=== PATIENT | male | born 1950 | race Caucasian/White ===

== ENCOUNTER 2016-09-08 16:52 | Inpatient (IN) ==
--- NOTE | 2016-09-08 17:03 | Emergency Department Note ---
Disposition Clinical Impression: Exertional dyspnea, Leg edema, CAD (coronary artery disease), Atrial fibrillation with RVR Disposition: Still a Patient Condition: Fair Referrals: NO,PCP [Non-Partnered Physician] - Time of Disposition: 18:39 General Adult HPI - General Stated complaint: irregular heart rate Time Seen by Provider: 09/08/16 16:58 Source: patient, EMS Mode of arrival: EMS Limitations: no limitations Nursing Notes Reviewed: Yes Vital Signs Reviewed: Yes - History of Present Illness HPI Narrative: This is a 66-year-old male who presents with bilateral leg swelling and exertional dyspnea. Patient had open heart surgery in mid July. Patient had his CABG surgery here with Dr. Madera. Patient was being seen in a follow- up appointment today and he was in an irregular fast rhythm with increased leg swelling despite increased doses of Lasix so they wanted him evaluated in the ED with bilateral venous duplex as well. Patient states no active chest pain at this time. Patient states he does have some skin breakdown around his buttocks from having to sit so much and states his legs are very painful from all the swelling. Patient states he just increased his Lasix to 60 mg twice a day. Patient has not had any fevers. - Related Data Home Medications Medication Instructions Recorded Confirmed Albuterol Sulfate [Albuterol 2 puff IH Q4H PRN 05/20/16 08/23/16 Inhaler] ClonazePAM [Klonopin] 1 mg PO BID 05/20/16 08/23/16 Escitalopram [Lexapro] 20 mg PO HS 05/20/16 08/23/16 Gabapentin [Neurontin] 100 mg PO TID 05/20/16 08/23/16 Ipratropium/Albuterol Neb [Duoneb] 3 ml IH QID PRN 05/20/16 08/23/16 Metformin HCl [Metformin HCl ER] 500 mg PO QPM 05/20/16 08/23/16 Quetiapine Fumarate [Seroquel] 50 - 100 mg PO HS 05/20/16 08/23/16 Trazodone HCl 150 - 300 mg PO HS PRN 05/20/16 08/23/16 Previous Rx's Medication Instructions Recorded Aspirin 81 mg PO DAILY #30 tab.chew 05/22/16 Atorvastatin [Lipitor] 80 mg PO HS #30 tablet 05/22/16 Clopidogrel [Plavix] 75 mg PO DAILY #30 tablet 05/22/16 Nitroglycerin 0.4 mg SL Q5MIN PRN #25 tab.subl 05/22/16 Amiodarone [Cordarone] 200 mg PO DAILY #30 tablet 08/20/16 Docusate [Colace] 100 mg PO BID #30 capsule 08/20/16 Furosemide [Lasix] 40 mg PO DAILY #30 tablet 08/20/16 Metoprolol [Lopressor] 50 mg PO BID #60 tablet 08/20/16 OxyCODONE/APAP 5/325 [Percocet 1 each PO Q4HR PRN #30 tablet 08/20/16 5/325 MG] Allergies Allergy/AdvReac Type Severity Reaction Status Date / Time No Known Allergies Allergy Verified 08/12/16 08:12 All systems ED: reviewed and negative except as stated. Constitutional: Denies: fever, chills, weakness, weight change Eyes: Denies: eye pain, eye discharge, vision change ENT ED: Denies: ear pain, throat pain, dental pain, hearing loss, epistaxis, congestion, dysphagia Cardiovascular: Reports: dyspnea on exertion, edema. Denies: chest pain, palpitations, syncope Respiratory: Denies: cough, dyspnea, wheezes, hemoptysis, stridor Gastrointestinal: Denies: abdominal pain, nausea, vomiting, diarrhea, constipation, hematemesis, melena, hematochezia Genitourinary: Denies: urgency, dysuria, frequency, hematuria Musculoskeletal: Denies: back pain, neck pain, arthralgia, myalgia Integumentary: Denies: rash, abrasion, lesions Neurological: Denies: headache, weakness, numbness, paresthesias, confusion, abnormal gait, vertigo Psychiatric: Denies: anxiety, depression, suicidal thoughts, homicidal thoughts , auditory hallucinations, visual hallucinations Endocrine: Reports: fatigue Hematological/Lymphatic: Denies: easy bleeding, easy bruising Allergic/Immunologic: Denies: facial swelling, urticaria Past Medical History - Past Medical History Attestation: Yes The following information was validated with the patient. Source: patient Medical history: Reports: asthma, COPD, coronary artery disease, DVT, diabetes, hyperlipidemia, hypertension, peripheral artery disease, venous stasis, other Surgical history: Reports: non-contributory, other Psychiatric history: Reports: bipolar, PTSD - Social History Smoking Status: Current every day smoker Smokeless Tobacco Status: No Alcohol use: Reports: none, rarely Drug use: Reports: none Physical Exam - General Limitations: no limitations General appearance: alert, in no apparent distress, obese - Head Head exam: atraumatic, normocephalic, normal inspection - Eye Eye exam: Present: normal appearance, PERRL, EOMI - ENT ENT exam: normal exam, normal oropharynx, mucous membranes moist - Expanded ENT Exam External ear exam: Present: normal external inspection Mouth exam: Present: normal external inspection Teeth exam: Present: normal inspection Throat exam: Present: normal inspection - Neck Neck exam: Present: normal inspection, full ROM, trachea midline - Chest Chest inspection: Present: symmetric chest wall rise, other (scar from recent bypass) - Respiratory Respiratory exam: Present: normal lung sounds bilaterally - Cardiovascular Cardiovascular exam: Present: tachycardia, irregular rhythm, normal heart sounds - Abdominal Exam Abdominal exam: Present: soft, Non-Tender. Absent: tenderness, distention, guarding, rebound, rigidity - Extremities Exam Extremities exam: Present: normal inspection, full ROM, pedal edema. Absent: tenderness - Expanded Upper Extremity Exam Shoulder exam: Present: normal inspection, full ROM Arm exam: Present: normal inspection, full ROM Elbow exam: Present: normal inspection, full ROM Forearm/Wrist exam: Present: normal inspection, full ROM Hand exam: Present: normal inspection, full ROM Vascular exam: Normal: capillary refill, radial pulse - Expanded Lower Extremity Exam Hip/Pelvis exam: Present: normal inspection, full ROM Upper leg exam: Present: normal inspection, full ROM Knee exam: Present: normal inspection, full ROM Lower leg exam: Present: full ROM, swelling, other (venous discoloration) Ankle exam: Present: full ROM, swelling Foot/toe exam: Present: full ROM, swelling Neurovascular/Tendon exam: Absent: motor deficit, sensory deficit, tendon deficit - Back Exam Back exam: Present: normal inspection, full ROM. Absent: tenderness - Neurological Exam Neurological exam: Present: alert, oriented X3 - Expanded Neurological Exam Patient oriented to: Present: person, place, time Coma Scale Eye Opening: Spontaneous Coma Scale Motor Response: Obeys Commands Coma Scale Verbal Response: Oriented Coma Scale Total: 15 - Psychiatric Psychiatric exam: Present: normal affect, normal mood - Skin Skin exam: Present: warm, dry, intact, normal color Course Vital Signs Temperature 98.9 F 09/08/16 17:03 Pulse Rate 113 09/08/16 17:03 Respiratory Rate 18 09/08/16 17:03 Blood Pressure 99/80 09/08/16 17:03 O2 Sat by Pulse Oximetry 91 L 09/08/16 17:03 Temperature 98.9 F 09/08/16 17:03 Pulse Rate 115 09/08/16 18:13 Respiratory Rate 18 09/08/16 18:13 Blood Pressure 121/77 09/08/16 18:13 O2 Sat by Pulse Oximetry 95 09/08/16 18:13 Oxygen Delivery Oxygen Delivery Nasal Cannula Medical Decision Making - Medical Records Medical records reviewed: Yes I reviewed the patient's medical records. - Lab Data Lab results reviewed: Yes I reviewed the patient's lab results. Result diagrams: 09/08/16 17:35 09/08/16 17:35 Lab Results 09/08/16 09/08/16 09/08/16 Range/Units 17:35 17:35 17:35 WBC 7.8 (4.3-11.1) K/mcL RBC 4.14 L (4.19-5.50) M/mcL Hgb 11.2 L (12.9-16.9) g/dL Hct 36.2 L (37.5-50.1) % MCV 87.4 (83.0-100.0) fL MCH 27.1 L (28.0-33.3) pg MCHC 30.9 L (31.6-35.5) g/dL RDW 15.2 H (11.5-14.5) % Plt Count 290 (140-400) K/mcL MPV 8.5 L (9.4-12.4) fL Immature Gran % 0.8 (0-4) % Seg Neutrophils % 62.2 % Lymphocytes % 19.9 % Monocytes % 9.7 % Eosinophils % 6.9 % Basophils % 0.5 % Neutrophils # 4.9 (1.6-8.9) K/mcL Lymphocytes # 1.6 (0.6-4.6) K/mcL Monocytes # 0.8 (0.0-1.3) K/mcL Eosinophils # 0.5 (0.0-0.6) K/mcL Basophils # 0.0 (0.0-0.2) K/mcL Platelet Estimate Normal (Normal) Immature Plt Fraction 1.2 (1.1-6.1) % PT 14.4 H (9.4-12.1) Seconds INR 1.3 APTT 16.6 L (26.0-36.0) Seconds D-Dimer 1605 H (0-500) ng/mLFEU Sodium 137 (136-145) mEq/L Potassium 4.0 (3.5-4.5) mEq/L Chloride 102 (98-109) mEq/L Carbon Dioxide 26 (19-29) mEq/L BUN 14 (8-26) mg/dL Creatinine 0.95 (0.72-1.25) mg/dL Est GFR ( Amer) > 60 (> 60) Est GFR (Non-Af Amer) > 60 (> 60) BUN/Creatinine Ratio 15 (6-26) Glucose 90 (70-99) mg/dL Calculated Osmolality 284 (280-300) Calcium 9.1 (8.6-10.8) mg/dL Total Bilirubin (0.2-1.2) mg/dL Direct Bilirubin (0.0-0.5) mg/dL Indirect Bilirubin (0.0-1.2) mg/dL AST (5-34) Units/L ALT (0-55) Units/L Alkaline Phosphatase (38-126) Units/L Troponin I (0-0.03) ng/mL B-Natriuretic Peptide (0-100) pg/mL Serum Total Protein (6.0-8.3) g/dL Albumin (3.5-5.0) g/dL Globulin (2.4-3.5) g/dL Albumin/Globulin Ratio (1.1-2.2) 09/08/16 09/08/16 09/08/16 Range/Units 17:35 17:35 17:35 WBC (4.3-11.1) K/mcL RBC (4.19-5.50) M/mcL Hgb (12.9-16.9) g/dL Hct (37.5-50.1) % MCV (83.0-100.0) fL MCH (28.0-33.3) pg MCHC (31.6-35.5) g/dL RDW (11.5-14.5) % Plt Count (140-400) K/mcL MPV (9.4-12.4) fL Immature Gran % (0-4) % Seg Neutrophils % % Lymphocytes % % Monocytes % % Eosinophils % % Basophils % % Neutrophils # (1.6-8.9) K/mcL Lymphocytes # (0.6-4.6) K/mcL Monocytes # (0.0-1.3) K/mcL Eosinophils # (0.0-0.6) K/mcL Basophils # (0.0-0.2) K/mcL Platelet Estimate (Normal) Immature Plt Fraction (1.1-6.1) % PT (9.4-12.1) Seconds INR APTT (26.0-36.0) Seconds D-Dimer (0-500) ng/mLFEU Sodium (136-145) mEq/L Potassium (3.5-4.5) mEq/L Chloride (98-109) mEq/L Carbon Dioxide (19-29) mEq/L BUN (8-26) mg/dL Creatinine (0.72-1.25) mg/dL Est GFR ( Amer) (> 60) Est GFR (Non-Af Amer) (> 60) BUN/Creatinine Ratio (6-26) Glucose (70-99) mg/dL Calculated Osmolality (280-300) Calcium (8.6-10.8) mg/dL Total Bilirubin 0.6 (0.2-1.2) mg/dL Direct Bilirubin 0.3 (0.0-0.5) mg/dL Indirect Bilirubin 0.3 (0.0-1.2) mg/dL AST 18 (5-34) Units/L ALT 14 (0-55) Units/L Alkaline Phosphatase 141 H (38-126) Units/L Troponin I 0.02 (0-0.03) ng/mL B-Natriuretic Peptide 335 H (0-100) pg/mL Serum Total Protein 6.4 (6.0-8.3) g/dL Albumin 2.8 L (3.5-5.0) g/dL Globulin 3.6 H (2.4-3.5) g/dL Albumin/Globulin Ratio 0.8 L (1.1-2.2) - Radiology Data Radiology results reviewed: Yes I reviewed the patient's radiology results. - EKG Data EKG #1 EKG attestation: Yes I reviewed and interpreted this EKG. Rate: tachycardia (113) Rhythm: A.Fib Silver Plume/QRS: normal Interpretation: nonspecific ST-T wave changes S.B.A.R. - S.B.A.R. Transition of Care: I will sign pt out to Dr. Avelar to await DVT studies and CTA chest and then likely admission of pt. 18:50.
[2016-09-08 18:00] LABS: INR 1.3; Prothrombin Time 14.4 Seconds (9.4-12.1)
[2016-09-08 18:08] LABS: Activated Partial Thrombo Time 16.6 Seconds (26.0-36.0); BUN/Creatinine Ratio 15 (6-26); Blood Urea Nitrogen 14 mg/dL (8-26); Calcium 9.1 mg/dL (8.6-10.8); Carbon Dioxide 26 mEq/L (19-29); Chloride 102 mEq/L (98-109); Glucose 90 mg/dL (70-99); Osmolality,Calculated 284 (280-300); Sodium 137 mEq/L (136-145); eGFR For African Americans > 60 (> 60); eGFR For Non-African Americans > 60 (> 60)
[2016-09-08 18:13] LABS: Albumin 2.8 g/dL (3.5-5.0); Albumin/Globulin Ratio 0.8 (1.1-2.2); Bilirubin,Direct 0.3 mg/dL (0.0-0.5); Bilirubin,Indirect 0.3 mg/dL (0.0-1.2); Bilirubin,Total 0.6 mg/dL (0.2-1.2); Globulin 3.6 g/dL (2.4-3.5); Total Protein 6.4 g/dL (6.0-8.3)
[2016-09-08 18:16] LABS: Basophils % 0.5 %; Eosinophils # 0.5 K/mcL (0.0-0.6); Eosinophils % 6.9 %; Hematocrit 36.2 % (37.5-50.1); Hemoglobin 11.2 g/dL (12.9-16.9); Immature Granulocytes % 0.8 % (0-4); Immature Platelets 1.2 % (1.1-6.1); Lymphocytes # 1.6 K/mcL (0.6-4.6); Lymphocytes % 19.9 %; Mean Corpuscular HGB Conc 30.9 g/dL (31.6-35.5); Mean Corpuscular Hemoglobin 27.1 pg (28.0-33.3); Mean Corpuscular Volume 87.4 fL (83.0-100.0); Mean Platelet Volume 8.5 fL (9.4-12.4); Monocytes # 0.8 K/mcL (0.0-1.3); Monocytes % 9.7 %; Platelet Count 290 K/mcL (140-400); Red Blood Count 4.14 M/mcL (4.19-5.50); Red Cell Distribution Width 15.2 % (11.5-14.5); Segmented Neutrophils % 62.2 %
[2016-09-08 18:35] LABS: Neutrophils # 4.9 K/mcL (1.6-8.9)
[2016-09-08 18:36] LABS: Platelet Estimate Normal (Normal)
[2016-09-08] MEDS ORDERED: Furosemide 40 MG/4 ML VIAL IVP ONE (23:48)
[2016-09-08] MEDS ORDERED: Azithromycin 500 MG in D5% in Water 250 ML IVPB ONE (23:48)
[2016-09-09 01:11] LABS: Bilirubin,Urine Negative (Negative); Blood,Urine Negative (Negative); Clarity,Urine Clear (Clear); Color,Urine Yellow (Yellow); Glucose,Urine (UA) Normal (Normal); Ketones,Urine Negative (Negative); Leukocyte Esterase,Urine Negative (Negative); Nitrite,Urine Negative (Negative); Protein,Urine Negative (Neg-Trace); Specific Gravity,Urine 1.028 (1.010-1.025); Urobilinogen,Urine Normal (Normal)
[2016-09-09] MEDS ORDERED: Naloxone 0.4 MG/ML INJ IVP PRN (01:14)
[2016-09-09] MEDS ORDERED: *HR* OxyCODONE/APAP 5/325 TABLET PO PRN (01:16)
[2016-09-09] MEDS ORDERED: Nitroglycerin 0.4 MG TAB.SUBL SL PRN (01:16)
[2016-09-09] MEDS ORDERED: Eucerin Cream 57 GM TUBE TP PRN (01:20)
[2016-09-09] MEDS ORDERED: D5% in Water 1,000 ML IV PRN (01:21)
[2016-09-09] MEDS ORDERED: *HR* Dextrose 50 % in Water (Syg) 50 ML SYRINGE IVP PRN (01:21)
[2016-09-09] MEDS ORDERED: Dextrose Gel 15 GM PO PRN ×2 (01:21)
[2016-09-09] MEDS ORDERED: Albuterol 2.5 MG/3 ML NEBULIZER IH PRN (01:22)
--- NOTE | 2016-09-09 01:28 | Internal Med History&Physical ---
Date of Encounter: 09/09/16 Time of Encounter: 00:30 Assessment and Plan (1) Atrial flutter with rapid ventricular response Current visit: Yes Status: Acute Rate has been steady at 115 since arrival to ED. Troponins negative at 0.02. Will give metoprolol 100mg BID starting dose now. Continue amiodarone. Continue Plavix. Continue aspirin. (2) Pneumonia Current visit: Yes Status: Acute With hypoxia and large left pleural effusion that is unchanged. Blood cultures were drawn in the ED. Patient was started on ceftriaxone and azithromycin in the ED. The patient is afebrile and does not have an elevated white count, but with elevated CRP of 27, CT findings, and lung findings on exam will continue with antibiotic therapy. Ceftriaxone and Azithromycin. CTA: No pulmonary embolism. Large left pleural effusion and compressive atelectasis of left lower lung. Scattered opacities in right lung may reflect mild pneumonia or edema. Qualifiers: Pneumonia type: due to unspecified organism Laterality: right Lung location: unspecified part of lung Qualified Code(s): J18.9 - Pneumonia, unspecified organism (3) COPD (chronic obstructive pulmonary disease) Current visit: No Status: Chronic In acute exacerbation secondary to pneumonia and CHF. Duo Neb QIDR Albuterol Q4 PRN Incentive spirometry Antibiotics being given for pneumonia. Qualifiers: COPD type: unspecified COPD Qualified Code(s): J44.9 - Chronic obstructive pulmonary disease, unspecified (4) CHF (congestive heart failure) Current visit: Yes Status: Acute Most recent echocardiogram in 05/16 with EF of 55% and mild diastolic left ventricular dysfunction. Patient reports 20lbs weight gain in past month and worsening lower extremity edema bilaterally. BNP 335. 60mg IV lasix given in ED. Strict I/Os Daily weights. 80mg Lasix BID PO Qualifiers: Congestive heart failure type: diastolic Congestive heart failure chronicity: chronic Qualified Code(s): I50.32 - Chronic diastolic (congestive ) heart failure (5) DVT prophylaxis Current visit: Yes Status: Acute Patient is on Plavix and aspirin. LEO stockings ordered. (6) Diabetes mellitus Current visit: No Status: Chronic Metformin with low dose sliding scale insulin. Qualifiers: Diabetes mellitus type: type 2 Diabetes mellitus complication status: with unspecified complications Diabetes mellitus exterminator helper termite insulin use: without exterminator helper termite use Qualified Code(s): E11.8 - Type 2 diabetes mellitus with unspecified complications (7) Stasis dermatitis Current visit: Yes Status: Acute LEO stockings with eucerin cream PRN Qualifiers: Laterality: bilateral Qualified Code(s): I83.11 - Varicose veins of right lower extremity with inflammation; I83.12 - Varicose veins of left lower extremity with inflammation Internal Medicine - H&P: HPI Chief complaint: rapid heart rate Admitted From: Emergency Dept Plans for Post Hospital Care: Transfer Group Home Facility History of present illness: Mr. Fierro is a 66 year old male with PMH of COPD, CAD, DVT, DM, HLD, HTN, PAD, venous stasis, atrial fibrillation and flutter, and previous OK who presented to the emergency department for rapid heart rate. 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 His CABG procedure was by Dr. Madera in mid July, and he had 2 stents placed in May prior to this. Imagining demonstrated no change in his left sided pleural effusion, but he had some scattered opacities in the right lung that may be consistent with pneumonia. He states that he does have a cough that is productive of clear sputum and has been having fevers within the last week. He complains of worsening swelling in both his legs and a 20lbs weight gain over the last month. He denies chest pain at this time, but states he is feeling short of breath. He was not oxygen dependent before his CABG, but has been on 2L oxygen since being discharged to a nursing home facility for rehabilitation. Additionally the patient notes soreness of his buttocks and notes some skin breakdown in the area due to sitting so much since his discharge from the hospital, and he states this has been quite sore today. Past Med Surg Social Fam HX - Past Medical History Medical history: COPD, coronary artery disease, DVT, diabetes, hyperlipidemia, hypertension, peripheral artery disease, venous stasis, other Psychiatric history: bipolar, PTSD - Past Surgical History Surgical History: coronary bypass (CABG), other - Social History Smoking Status: Current every day smoker (States he stopped since his CABG mid july, no plans to pick it back up) Smokeless Tobacco Status: No Alcohol use: none, rarely Drug use: none - Family History Father Adopted: No Family Member Ethnicity: Non- Living Status: Unknown Hx Family Cardiac Disorders: Yes (CVA) Mother Living Status: Age at : 88 Hx Family Endocrine Disorder: Yes (Diabetes) Internal Medicine - H&P: Meds Albuterol Sulfate [Albuterol Inhaler] 2 puff IH Q4H PRN 05/20/16 [History] ClonazePAM [Klonopin] 1 mg PO BID 05/20/16 [History] Escitalopram [Lexapro] 20 mg PO HS 05/20/16 [History] Gabapentin [Neurontin] 100 mg PO TID 05/20/16 [History] Ipratropium/Albuterol Neb [Duoneb] 3 ml IH QID PRN 05/20/16 [History] Metformin HCl [Metformin HCl ER] 500 mg PO QPM 05/20/16 [History] Quetiapine Fumarate [Seroquel] 50 - 100 mg PO HS 05/20/16 [History] Trazodone HCl 150 - 300 mg PO HS PRN 05/20/16 [History] Aspirin 81 mg PO DAILY #30 tab.chew 05/22/16 [Rx] Atorvastatin [Lipitor] 80 mg PO HS #30 tablet 05/22/16 [Rx] Clopidogrel [Plavix] 75 mg PO DAILY #30 tablet 05/22/16 [Rx] Nitroglycerin 0.4 mg SL Q5MIN PRN #25 tab.subl 05/22/16 [Rx] Amiodarone [Cordarone] 200 mg PO DAILY #30 tablet 08/20/16 [Rx] Docusate [Colace] 100 mg PO BID #30 capsule 08/20/16 [Rx] Furosemide [Lasix] 40 mg PO DAILY #30 tablet 08/20/16 [Rx] Metoprolol [Lopressor] 50 mg PO BID #60 tablet 08/20/16 [Rx] OxyCODONE/APAP 5/325 [Percocet 5/325 MG] 1 each PO Q4HR PRN #30 tablet 08/20/16 [Rx] Allergies No Known Allergies Allergy (Verified 08/12/16 08:12) All Systems PM: A 10-system review of systems was performed and is negative for pertinent findings except as documented above in the HPI. - Constitutional Constitutional: fever(s), weight gain (20lbs in one month), no chills, no night sweats - EENT Eyes: no change in vision, no discharge, no pain, no photophobia Ears: no ear discharge, no ear pain, no tinnitus Nose, mouth and throat: no dysphagia, no nasal discharge, no neck pain, no sore throat - Cardiovascular Cardiovascular ROS IM: edema (bilateral), no chest pain, no diaphoresis, no lightheadedness, no palpitations, no syncope - Respiratory Respiratory: dyspnea, no cough, no wheezing, no excessive phlegm production - Gastrointestinal Gastrointestinal: no abdominal pain, no diarrhea, no hematemesis, no hematochezia, no melena, no nausea, no vomiting - Musculoskeletal Musculoskeletal ROS IM: no numbness, no tingling - Integumentary Integumentary IM: sores (buttocks), no rash, no unusual bruising - Neurological Neurological ROS: no confusion, no convulsions, no focal weakness, no numbness, no tingling, no tremor(s) - Hematologic/Lymphatic Hematologic/Lymphatic: no easy bruising - Constitutional Vitals: Temp Pulse Resp BP Pulse Ox 98.9 F 115 18 121/77 95 09/08/16 17:03 09/08/16 18:13 09/08/16 18:13 09/08/16 18:13 09/08/16 18:13 General appearance: Present: A&O X 3, pleasant, obese - Head Head exam: Present: atraumatic, normocephalic - Eye Eye exam: Present: EOMI, PERRL, conjuntiva pink, sclera anicteric Pupils: Present: PERRL - Neck Neck exam general surgery: Present: supple, trachea midline. Absent: lymphadenopathy - Respiratory Respiratory exam: Present: rhonchi, wheezes. Absent: accessory muscle use, rales - Cardiovascular Cardiovascular exam: Present: +S1, +S2, tachycardia. Absent: diastolic murmur, gallop, rubs, systolic murmur - GI/Abdominal GI/Abdominal exam: Present: normal bowel sounds, soft, no peritoneal signs. Absent: distended, tenderness - Extremities Exam Extremities exam: Present: pedal edema (+2), warm, radial pulses palpable and symetrical. Absent: calf tenderness, cyanotic - Neurological Exam Neurological exam: Present: CN II-XII intact, oriented X3, no focal deficits. Absent: pronater drift, facial droop, speech deficit - Skin Skin exam: Present: dry, intact, rash (Stasis dermatitis on lower extremities) Internal Med - H&P Results - Labs CBC & Chem 7: 09/08/16 17:35 09/08/16 17:35 Labs: Urine 09/09/16 Range/Units 01:02 Urine Color Yellow (Yellow) Urine Clarity Clear (Clear) Urine pH 7.0 (5.0-8.0) pH Units Ur Specific [place] 1.028 H (1.010-1.025) Urine Protein Negative (Neg-Trace) mg/dL Urine Glucose (UA) Normal (Normal) mg/dL - Attending Attestation I examined this patient and my medical decision-making was reviewed with the ZIPPER LINING FOLDER/PA/Advanced Practice Nurse/Resident Physician. I agree with the documented findings, disposition and treatment plan as described except to the extent set forth below.
[2016-09-09] MEDS: Azithromycin 500 MG in D5% in Water 250 ML IVPB SCH (02:50)
[2016-09-09] MEDS: Ipratropium/Albuterol Neb 3 ML IH SCH ×4 (04:35→22:51)
--- NOTE | 2016-09-09 08:19 | Event Note ---
<Eloy Garcia - Last Filed: 09/09/16 15:01> Date of Encounter: 09/09/16 Time of Encounter: 08:15 Patient is pleasant and states that he is feeling well today and mildly short of breath while at rest. He has no complaints of pain and his coughing has been improved. He is in sinus tach with HR at 115 BPM, regular rhythm. He became short of breath when asked to sit up so that his back could be auscultated. Patient had mild wheezing and rhonchi to auscultation in lungs on the right, but has decreased breath sounds on the right. HE states that he is concerned about the venous stasis dermatitis in his legs. I spoke to patient about the large left pleural effusion he has and discussed the possibility of thoracentesis, which the patient responded he would think about it. AFib - cardiology consulted, possible JENI/CV tomorrow if he remains in AFib RVR Diastolic CHF - Will continue diuresis with IV Lasix Treating pneumonia with IV antibiotics Patient is agreeable to having thoracentesis for his left pleural effusion <Garrett Doshi - Last Filed: 09/09/16 16:42> Date of Encounter: 09/09/16 I examined this patient and my medical decision-making was reviewed with the SPOT CHECKER/PA/Advanced Practice Nurse/Resident Physician. I agree with the documented findings, disposition and treatment plan as described except to the extent set forth below.
--- NOTE | 2016-09-09 08:21 | Emergency Department Note ---
START Narrative - START START: Patient received in signout from Dr. Keith pending laboratory evaluation and CTA. After evaluation of results the patient was reevaluated who continued to become hypoxic and obviously dyspneic with conversation, satting below 90% with conversation. Patient does not have evidence of PE on CT. He does have opacity in his lungs which could represent pneumonia. Patient is afebrile and does not have an elevation of his white blood cell count however I will treat with antibiotics for possible early infection. Patient will be admitted to the hospital for further care and evaluation of dyspnea.
[2016-09-09] MEDS: Insulin LISPRO 300 UNITS/3 ML VIAL SQ SCH ×4 (08:27→21:09)
[2016-09-09] MEDS ORDERED: Furosemide 40 MG TABLET PO SCH (09:00)
[2016-09-09] MEDS: *HR* Amiodarone 200 MG TABLET PO SCH (10:11)
[2016-09-09] MEDS: Aspirin 81 MG TAB.CHEW PO SCH (10:11)
[2016-09-09] MEDS: clonazePAM 1 MG TABLET PO SCH ×2 (10:11→21:07)
[2016-09-09] MEDS: Gabapentin 100 MG CAPSULE PO SCH ×3 (10:11→21:07)
--- NOTE | 2016-09-09 10:48 | Cardiology Consult Note ---
Date of Encounter: 09/09/16 Time of Encounter: 10:36 Assessment and Plan (1) Pleural effusion, left Current Visit: Yes Status: Acute Large left pleural effusion with compressive atelectasis. Likely post-operative pleural effusion. Agree with thoracentesis. (2) Atrial fibrillation with RVR Current Visit: Yes Status: Acute Initial EKG in cardiology office showed 2:1 atrial flutter, HR 114. Telemetry review shows atrial fibrillation. Avg HR 110. Recurrent afib. Pt did have a short episode of post-operative afib and was placed on amiodarone. Agree with increasing lopressor. May require addition of cardizem. care home anticoagulation discussed including coumadin or a NOAC. CHADS VASc= 5 for CHF, HTN, age, DM, and CAD. Indications, benefits, use , and adverse effects of anticoagulants reviewed. He prefers coumadin d/t being on it in the past for DVT. Ok to d/c plavix (BMS 05/2016), continue aspirin. Will start after TTE and possible thoracentesis. Lovenox therapeutic dosing for now. PFT baseline ordered in outpt setting for amiodarone monitoring. (3) Atrial flutter with rapid ventricular response Current Visit: Yes Status: Acute See plan above. (4) CAD (coronary artery disease) Current Visit: Yes Status: Chronic S/p STEMI 05/2016, BMS x 2 to RCA 05/2016, 4V CABG 08/12/16. Continue aspirin, statin, and bb. Denies chest pain. Qualifiers: Coronary Disease-Associated Artery/Lesion type: [place] artery [place] vs. transplanted heart: [place] heart Associated angina: without angina Qualified Code(s): I25.10 - Atherosclerotic heart disease of [place] coronary artery without angina pectoris (5) CHF (congestive heart failure) Current Visit: Yes Status: Acute Most recent echocardiogram in 05/16 with EF of 55% and mild diastolic left ventricular dysfunction. Likely secondary to diastolic dysfunction with atrial fib/flutter with RVR. C/O 20lbs weight gain in past month,worsening lower extremity edema bilaterally , and orthopnea. BNP 335. Start IV lasix scheduled. Responded well to IV lasix in ER. Negative 1900ml. Continue diuresis with goal of -1500ml Q 24 hours. Strict I/Os Daily weights. Low sodium diet. Agree with thoracentesis. BLE doppler pending to r/o DVT. Qualifiers: Congestive heart failure type: diastolic Congestive heart failure chronicity: acute on chronic Qualified Code(s): I50.33 - Acute on chronic diastolic (congestive) heart failure (6) Stasis dermatitis Current Visit: Yes Status: Acute Reports history of stasis dermatitis but not as bad. He was not on treatment at [facility]. I discussed wound care referral in out-pt setting yesterday and patient states he is interested today. I will consult wound care for him to be seen while he is here. Hospitalist also following and ordered cream for him. Qualifiers: Laterality: bilateral Qualified Code(s): I83.11 - Varicose veins of right lower extremity with inflammation; I83.12 - Varicose veins of left lower extremity with inflammation Discussion w patient/family: The assessment and plan as outlined above was discussed with the patient and/or family members who expressed understanding and agreement. All questions were answered. Thank you for involving us in the care of your patient. Please call with any questions. History of Present Illness Consult date: 09/09/16 Requesting physician: Roque Adkins Consult reason: CHF Chief complaint: SOB, BLE edema, orthopnea History of present illness: Mr. Fierro is a 66 year old male who presents with increasing SOB, BLE edema, orthopnea, and redness and pain in left leg. He is s/p STEMI 05/19/16 and he underwent BMS x 2 to the RCA, diagnosed with severe three-vessel coronary artery disease and recommended to undergo CABG. He required plavix for 4-6 weeks prior to CABG. He underwent 4V CABG (free GOSS-LAD, sequential SVG-D1 and OM1, SVG-PDA) on 08/12/[address] [place]. Since his CABG he had a recent ER visit 08/23/16 for right lower extremity incision bleeding. Bleeding is now stopped. Oral lasix increased for increasing BLE edema and SOB. Diagnosed with RUL pneumonia 08/24/16 and started on levaquin in the out patient setting. He currently is at a rehab facility and requires assistance with ambulation. C/o sores on coccyx area and new discoloration of BLE. Reports history of stasis dermatitis. Cardiology consulted for CHF and afib/aflutter. He was seen in the cardiology clinic by me yesterday with the above complaints. EKG showed 2:1 atrial flutter with mild RVR. D/t multiple complaints and worsening SOB despite treatment he was sent to the ED. He was treated with IV lasix and responded well. He reports improvement in breathing. CT scan shows a large left effusion with compressive atelectasis. He is considering thoracentesis offered by primary team. Other past medical history includes post-op atrial fibrillation on amiodarone, diabetes type 2, hypertension, hypercholesterolemia, and COPD. Past Med Surg Social Fam HX - Past Medical History Medical history: COPD, coronary artery disease, DVT, diabetes, hyperlipidemia, hypertension, peripheral artery disease, venous stasis, other Psychiatric history: bipolar, PTSD - Past Surgical History Surgical History: coronary bypass (CABG), other - Social History Smoking Status: Current every day smoker Smokeless Tobacco Status: No Alcohol use: none, rarely Drug use: none - Family History Mother Living Status: Age at : 88 Hx Family Cardiac Disorders: Yes Hx Family Endocrine Disorder: Yes (Diabetes) Hx Family Medical Disorders: Yes (diabetic) Father Adopted: No Family Member Ethnicity: Non- Living Status: Unknown Hx Family Cardiac Disorders: Yes (CVA) Hx Family Neurologic Disorders: Yes (stroke) Medications and Allergies Albuterol Sulfate [Albuterol Inhaler] 2 puff IH Q4H PRN 05/20/16 [History] ClonazePAM [Klonopin] 1 mg PO BID PRN 05/20/16 [History] Escitalopram [Lexapro] 20 mg PO HS 05/20/16 [History] Gabapentin [Neurontin] 100 mg PO TID 05/20/16 [History] Ipratropium/Albuterol Neb [Duoneb] 3 ml IH Q4H PRN 05/20/16 [History] Metformin HCl [Metformin HCl ER] 500 mg PO QPM 05/20/16 [History] Quetiapine Fumarate [Seroquel] 50 - 100 mg PO HS 05/20/16 [History] Trazodone HCl 150 - 300 mg PO HS PRN 05/20/16 [History] Aspirin 81 mg PO DAILY #30 tab.chew 05/22/16 [Rx] Atorvastatin [Lipitor] 80 mg PO HS #30 tablet 05/22/16 [Rx] Clopidogrel [Plavix] 75 mg PO DAILY #30 tablet 05/22/16 [Rx] Nitroglycerin 0.4 mg SL Q5MIN PRN #25 tab.subl 05/22/16 [Rx] Amiodarone [Cordarone] 200 mg PO DAILY #30 tablet 08/20/16 [Rx] Docusate [Colace] 100 mg PO BID #30 capsule 08/20/16 [Rx] Metoprolol [Lopressor] 50 mg PO BID #60 tablet 08/20/16 [Rx] OxyCODONE/APAP 5/325 [Percocet 5/325 MG] 1 each PO Q4HR PRN #30 tablet 08/20/16 [Rx] Acetaminophen [Tylenol] 650 mg PO Q6HR PRN 09/09/16 [History] Budesonide/Formoterol 80/4.5 [Symbicort 80/4.5] 2 puff IH BID 09/09/16 [History ] Furosemide [Lasix] 40 mg PO BID 09/09/16 [History] Guaifenesin [Mucinex] 600 mg PO BID PRN 09/09/16 [History] Polyethylene Glycol 3350 [MiraLAX] 17 gm PO DAILY PRN 09/09/16 [History] Potassium Chloride [K-Tab ER] 20 meq PO BID 09/09/16 [History] Allergies No Known Allergies Allergy (Verified 09/09/16 09:34) All Systems Review: A 10-system review of systems was performed and is negative for pertinent findings except as documented above in the HPI. Physical Examination Vital Signs, Last 4 Hours Temp Pulse Resp BP Pulse Ox 09/09/16 07:22 97.8 F 113 16 113/86 96 General: Conversant, Other (Pleasant) HEENT: Atraumatic, Normocephaly, Mucus Membranes Moist Neck: No JVD, Normal carotid pulses Cardiac: Other (Irregularly irregular, atrial fibrillation with avg HR 110 bpm on telemetry. ) Lungs: Other (faint expiratory wheezes and scattered rhonci scattered through out. Respirations slightly labored at rest on O2 via NC. ) Neuro: Alert and responsive, No focal deficits noted Abdomen: Soft, Non-Tender Skin: Other (BLE with brownish discoloration, scaling, and blisters on left outer calf. Small open area on his calf. ) Musculoskeletal: No Chest Wall Tenderness Extremities: No Clubbing, Normal Pulses, Other (3+ edema in his feet, 2+ edema from his fett to his thighs. ) Results 09/08/16 17:35 09/08/16 17:35 - Imaging and Cardiology Echo: pending (Previous TTE 05/2016 showed preserved EF and no significant valvular disease.) - EKG Interpretation EKG results cardiology: personally reviewed (2:1 atrial flutter, HR 114 bpm.), other (24 hour telemetry shows atrial fibrillation, avg HR 110 bpm.) Consult Discharge Plan - Plan
[2016-09-09] MEDS: *HR* Enoxaparin 150 MG/ML SYRINGE SQ SCH ×2 (14:06→18:30)
[2016-09-09] MEDS: Furosemide 40 MG/4 ML VIAL IVP SCH ×2 (14:06→21:08)
--- NOTE | 2016-09-09 14:44 | Electrocardiograph Report ---
[facility] Test Date: 2016-09-08 Pat Name: Angel Fierro Department: 102 Room: 2NE17 Gender: M Torpedoman'S Mate: : 1950 Requested By: Varun Keith Order Number: [id number] Reading MD: Catarina Swan Measurements Intervals [place] Rate: 113 P: [place]: 0 QRS: 8 QRSD: 67 T: 76 QT: 220 QTc: 287 Interpretive Statements ATRIAL FLUTTER/TACHYCARDIA WITH RAPID VENTRICULAR RESPONSE LOW QRS VOLTAGE [QRS DEFLECTION < 0.5/1.0 mV IN LIMB/CHEST LEADS] POSSIBLE ANTERIOR MYOCARDIAL INFARCTION [30 ms Q WAVE IN V3/V4, OR R < 0.2 mV IN V4], PROBABLY OLD Electronically Signed On 09-09-16 14:40:12 EST by Catarina Swan
[2016-09-09] MEDS ORDERED: *HR* Metformin 500 MG TABLET PO SCH (18:00)
[2016-09-09] MEDS: *HR* Metoprolol 5 MG/5 ML VIAL IVP PRN (18:30)
[2016-09-09] MEDS: traZODone 50 MG TABLET PO SCH (21:06)
[2016-09-10] MEDS: Azithromycin 500 MG in D5% in Water 250 ML IVPB SCH (02:00)
[2016-09-10] MEDS: Miconazole 2% ointment 114 GM TUBE TP SCH ×2 (02:01→09:02)
[2016-09-10] MEDS: Ipratropium/Albuterol Neb 3 ML IH SCH ×4 (04:11→23:47)
[2016-09-10 05:31] LABS: Basophils # 0.1 K/mcL (0.0-0.2); Basophils % 0.6 %; Eosinophils # 0.5 K/mcL (0.0-0.6); Eosinophils % 6.7 %; Hematocrit 31.8 % (37.5-50.1); Hemoglobin 10.2 g/dL (12.9-16.9); Immature Granulocytes % 0.5 % (0-4); Lymphocytes # 2.8 K/mcL (0.6-4.6); Lymphocytes % 34.4 %; Mean Corpuscular HGB Conc 32.1 g/dL (31.6-35.5); Mean Corpuscular Hemoglobin 27.6 pg (28.0-33.3); Mean Corpuscular Volume 86.2 fL (83.0-100.0); Mean Platelet Volume 8.5 fL (9.4-12.4); Monocytes # 0.8 K/mcL (0.0-1.3); Monocytes % 9.9 %; Neutrophils # 3.9 K/mcL (1.6-8.9); Platelet Count 282 K/mcL (140-400); Red Blood Count 3.69 M/mcL (4.19-5.50); Red Cell Distribution Width 15.1 % (11.5-14.5); Segmented Neutrophils % 47.9 %
[2016-09-10 05:36] LABS: INR 1.5
[2016-09-10 05:43] LABS: BUN/Creatinine Ratio 15 (6-26); Blood Urea Nitrogen 13 mg/dL (8-26); Calcium 8.4 mg/dL (8.6-10.8); Carbon Dioxide 30 mEq/L (19-29); Chloride 100 mEq/L (98-109); Glucose 98 mg/dL (70-99); Osmolality,Calculated 290 (280-300); Potassium 3.4 mEq/L (3.5-4.5); Sodium 140 mEq/L (136-145); eGFR For African Americans > 60 (> 60); eGFR For Non-African Americans > 60 (> 60)
[2016-09-10 05:50] LABS: Large Platelets Present (Not Present); Platelet Estimate Normal (Normal); Polychromasia 1+ (Not Present)
[2016-09-10] MEDS: *HR* Enoxaparin 150 MG/ML SYRINGE SQ SCH ×2 (05:53→16:32)
[2016-09-10] MEDS ORDERED: Perflutren Lipid Microsphere 1.3 ML in 0.9 % Sodium Chloride 8.7 ML IVP ONE (07:58)
[2016-09-10] MEDS ORDERED: Perflutren Lipid Microsphere 2 ML VIAL ONE (08:01)
--- NOTE | 2016-09-10 08:41 | Internal Med Progress Note ---
<Eloy Garcia - Last Filed: 09/10/16 12:38> Date of Encounter: 09/10/16 Time of Encounter: 08:38 - Assessment and plan (1) Atrial fibrillation with RVR Current Visit: Yes Status: Acute Assessment and plan: Patient still is in AFib RVR with HR in 110's this morning Will continue with Amiodarone and Metoprolol PO and IV PRN Cardiology following, possible JENI/DCCV tomorrow if no improvement Blood pressures have been borderline low, will continue to monitor and hold Lasix Currently on therapeutic Lovenox, patient is considering Coumadin upon discharge (2) Pleural effusion, left Current Visit: Yes Status: Acute Assessment and plan: Will consult IR for thoracentesis today or tomorrow Obtain pleural fluid studies and serum lab work during collection Patient is clinically breathing better (3) Pneumonia Current Visit: Yes Status: Suspected Assessment and plan: Possible pneumonia superimposed on left pleural effusion Will continue on Rocephin and Zithromax Patient has been afebrile with normal white count Blood cultures collected, results are pending Qualifiers: Pneumonia type: due to unspecified organism Laterality: right Lung location: unspecified part of lung Qualified Code(s): J18.9 - Pneumonia, unspecified organism (4) CHF (congestive heart failure) Current Visit: Yes Status: Acute Assessment and plan: Echocardiogram performed was difficult to interpret, may re-obtain once HR is more controlled Blood pressures have been borderline low, will continue to monitor and hold Lasix Continue on Lasix IV 60 BID and Lopressor 100 mg BID Qualifiers: Congestive heart failure type: diastolic Congestive heart failure chronicity: acute on chronic Qualified Code(s): I50.33 - Acute on chronic diastolic (congestive) heart failure (5) HTN (hypertension) Current Visit: No Status: Chronic Assessment and plan: Blood pressures have been borderline low Will continue home medications as patient may tolerate Qualifiers: Hypertension type: essential hypertension Qualified Code(s): I10 - Essential (primary) hypertension (6) CAD (coronary artery disease) Current Visit: Yes Status: Chronic Assessment and plan: Stable, no complaints of chest pain during admission Continue ASA, Lipitor, Plavix, BB, nitro Qualifiers: Coronary Disease-Associated Artery/Lesion type: [place] artery [place] vs. transplanted heart: [place] heart Associated angina: without angina Qualified Code(s): I25.10 - Atherosclerotic heart disease of [place] coronary artery without angina pectoris (7) COPD (chronic obstructive pulmonary disease) Current Visit: No Status: Chronic Assessment and plan: Continue supportive measures with supplemental oxygen, scheduled breathing treatments Qualifiers: COPD type: unspecified COPD Qualified Code(s): J44.9 - Chronic obstructive pulmonary disease, unspecified (8) Non-insulin dependent type 2 diabetes mellitus Current Visit: Yes Status: Chronic Assessment and plan: Continue patient on low dose SSI ACHS accuchecks per protocol Blood sugars have been well controlled during hospital course (9) DVT prophylaxis Current Visit: Yes Status: Acute Assessment and plan: Currently no therapeutic Lovenox - Subjective Interval history: Pt seen and examined. He states he is breathing this morning and has no complaints of palpitations or chest pain. Denies fevers, nausea, vomiting, diarrhea. Has no issues with urinating. - Constitutional Vitals: Temp Pulse Resp BP Pulse Ox 97.7 F 121 16 109/87 94 L 09/10/16 07:13 09/10/16 07:13 09/10/16 07:13 09/10/16 07:13 09/10/16 07:13 General appearance: Present: cooperative, A&O X 3, pleasant, obese - Head Head exam: Present: atraumatic, normocephalic - Eye Eye exam: Present: PERRL, conjuntiva pink, sclera anicteric - Neck Neck exam general surgery: Present: supple, trachea midline. Absent: lymphadenopathy - Respiratory Respiratory exam: Present: decreased breath sounds (on left), wheezes (on right) . Absent: accessory muscle use, rales, rhonchi - Cardiovascular Cardiovascular exam: Present: +S1, +S2, tachycardia. Absent: diastolic murmur, gallop, rubs, systolic murmur - GI/Abdominal GI/Abdominal exam: Present: normal bowel sounds, soft, no peritoneal signs. Absent: distended, tenderness - Extremities Exam Extremities exam: Present: pedal edema (2+ bilaterally), warm, radial pulses palpable and symetrical. Absent: calf tenderness, cyanotic - Neurological Exam Neurological exam: Present: alert, CN II-XII intact, no focal deficits. Absent : facial droop, speech deficit - Skin Skin exam: Present: dry, intact Internal Medicine: Result - Labs CBC & Chem 7: 09/10/16 04:46 09/10/16 04:46 Labs: Short CBC 09/10/16 Range/Units 04:46 WBC 8.1 (4.3-11.1) K/mcL Hgb 10.2 L (12.9-16.9) g/dL Hct 31.8 L (37.5-50.1) % Plt Count 282 (140-400) K/mcL Neutrophils # 3.9 (1.6-8.9) K/mcL BMP 09/10/16 04:46 Sodium 140 Potassium 3.4 L Chloride 100 Carbon Dioxide 30 H BUN 13 Creatinine 0.84 Glucose 98 Calcium 8.4 L - ABG Interpretation ABG results: PT/INR, D-dimer PT 16.0 Seconds (9.4-12.1) H 09/10/16 04:46 D-Dimer 1605 ng/mLFEU (0-500) H 09/08/16 17:35 Consult Discharge Plan - Plan Referrals: Luis Garcia MD [Primary Care Provider] - <Garrett Doshi P - Last Filed: 09/10/16 17:54> - Constitutional Vitals: Temp Pulse Resp BP Pulse Ox 98.3 F 115 16 104/75 97 09/10/16 16:19 09/10/16 16:19 09/10/16 16:19 09/10/16 16:19 09/10/16 16:19 Internal Medicine: Result - Labs CBC & Chem 7: 09/10/16 04:46 09/10/16 14:45 Labs: Short CBC 09/10/16 Range/Units 04:46 WBC 8.1 (4.3-11.1) K/mcL Hgb 10.2 L (12.9-16.9) g/dL Hct 31.8 L (37.5-50.1) % Plt Count 282 (140-400) K/mcL Neutrophils # 3.9 (1.6-8.9) K/mcL BMP 09/10/16 09/10/16 04:46 14:45 Sodium 140 141 Potassium 3.4 L 4.0 Chloride 100 101 Carbon Dioxide 30 H 30 H BUN 13 13 Creatinine 0.84 0.92 Glucose 98 101 H Calcium 8.4 L 9.0 Liver Function 09/10/16 Range/Units 14:45 Total Bilirubin 0.6 (0.2-1.2) mg/dL AST 22 (5-34) Units/L ALT 19 (0-55) Units/L Alkaline Phosphatase 133 H (38-126) Units/L Albumin 2.8 L (3.5-5.0) g/dL - ABG Interpretation ABG results: PT/INR, D-dimer PT 16.0 Seconds (9.4-12.1) H 09/10/16 04:46 D-Dimer 1605 ng/mLFEU (0-500) H 09/08/16 17:35 - Impressions Impressions Thoracentesis Ultrasound 09/10/16 11:50 IMPRESSION: Successful ultrasound guided thoracentesis. D/ : / 09/10/2016 16:02:31 Crow Knox MD / bobo Interpreting Provider: Crow Knox MD Chest X-Ray 09/10/16 15:25 IMPRESSION: No pneumothorax following left-sided thoracentesis. Small residual left pleural effusion, decreased from the prior examination. D/ / Crow Knox MD / Crow Knox MD Interpreting Provider: Crow Konx MD - Attending Attestation I examined this patient and my medical decision-making was reviewed with the BIOMEDICAL EQUIPMENT TECHNICIAN/PA/Advanced Practice Nurse/Resident Physician. I agree with the documented findings, disposition and treatment plan as described except to the extent set forth below.
[2016-09-10] MEDS: Insulin LISPRO 300 UNITS/3 ML VIAL SQ SCH ×4 (08:57→22:23)
[2016-09-10] MEDS: Furosemide 40 MG/4 ML VIAL IVP SCH ×2 (09:00→21:24)
[2016-09-10] MEDS: Gabapentin 100 MG CAPSULE PO SCH ×3 (09:01→21:23)
[2016-09-10] MEDS: *HR* Amiodarone 200 MG TABLET PO SCH (09:01)
[2016-09-10] MEDS: clonazePAM 1 MG TABLET PO SCH ×2 (09:01→21:23)
[2016-09-10] MEDS: Aspirin 81 MG TAB.CHEW PO SCH (09:01)
--- NOTE | 2016-09-10 09:17 | ECHO - Doppler Report ---
Echo with Imaging Enhancement Agent Name: Angel Fierro Date of Study: 09/10/2016 Date: 1950 Ht: 69.0 in Medical Record#: [id number] Age: 66 Wt: 274.0 lb Gender: Male BSA: 2.36 Order #: [id number] Location: [facility] Room #: 2NE17 Reading Physician: Angela Alicea DO Rolled Glass Crosscutter: Nelly Crandall Ordering Physician: Sridhar Trejo MD Primary Physician: Luis Garcia M.D. Indications: Recent CABG, Reports leg swelling and weight gain Impressions: Technically challenging study with suboptimal windows due to patient body habitus and rapid heart rate. Even with use of Definity, LV systolic function could not be well evaluated. RV is not well evaluated. Valves are not well visualized. No doppler evidence of regurgitation or stenosis. Unable to estimate RVSP. Consider repeat study when clinical status improves. Findings: Study Quality * Technically sub-optimal due to body habitus. Heart rate is elevated, 120's. Aortic Valve * No aortic regurgitation. * Aortic valve not well visualized. * No aortic stenosis. Mitral Valve * No mitral regurgitation. * Mitral valve not well visualized. * No mitral stenosis. Tricuspid Valve * Tricuspid valve not well visualized. * Trace tricuspid regurgitation. Pulmonic Valve * Pulmonic valve is not well visualized. * No pulmonic stenosis. * No pulmonic regurgitation. Pulmonary Artery * Pulmonary artery not well visualized. ECG Findings * Atrial fibrillation. Left Ventricle * Indeterminate diastolic function. * Unable to evaluate segmental wall motion due to technical quality. * Unable to measure LV wall thickness or adequately visualize size. Interatrial Septum * Interatrial septum not well evaluated. IVC * The IVC is not well evaluated. Aorta * Not well visualized. Left Atrium * Normal left atrial size. Right Atrium * Normal right atrial size. Right Ventricle * Not well evaluated. History Hypertension Diabetes Hypercholesteremia History of Smoking Years 49 Packs 1 History of CAD/PTCA Myocardial Infarction Coronary Artery Bypass Graft Congestive Heart Failure 05/20/2016 a Previous Echo was performed. Contrast: Definity 1.3 ml in 8.7 ml of saline 2 ml. Measurements: BP: 110/ 68 2D Normal Values IVSd: 1.30 cm 0.6 - 1.0 cm LVIDd: 4.00 cm 3.7 - 5.6 cm LVPWd: 1.30 cm 0.6 - 1.1 cm LVIDs: 3.00 cm 1.5 - 3.6 cm AO: 2.80 cm < 4.0 cm LA: 4.30 cm 2.0 - 4.0cm %FS: 25.00 cm >25 % LA volume: 104 Mitral Valve Peak E:1.20 m/sec Peak E' Lat Micha:21.2 cm/s Peak E' Med Micha:14 cm/s E/E' Lat Ratio:5.7 E/E' Med Ratio:8.6 Tricuspid Valve TV Regurg Peak Grad: 20.00mmHg TV Regurg Peak Micha: 2.24m/sec Updated by Angela Alicea on 09/10/2016 9:09:31 AM electronically signed on 09/10/2016 9:11:22 AM with status of Final Wall Motion Chu: 1=Normal, 2=Hypokinesis, 3=Akinesis, 4=Dyskinesis, 5=Aneurysmal, 6=Hyperkinetic, X=Not Visualized (Blank)=Missing
--- NOTE | 2016-09-10 11:30 | Cardiology Progress Note ---
Date of Encounter: 09/10/16 Time of Encounter: 11:28 Assessment and Plan (1) Pleural effusion, left Current Visit: Yes Status: Acute Large left pleural effusion with compressive atelectasis.Now agreeable to thoracentesis. Discussed with hospitalist, they are ordering today. (2) Atrial fibrillation with RVR Current Visit: Yes Status: Acute Initial EKG in cardiology office showed 2:1 atrial flutter, HR 114. Telemetry review shows atrial fibrillation. Avg HR 106. Recurrent afib. Pt did have a short episode of post-operative afib and was placed on amiodarone. On lopressor 100 mg BID. B/p low after sitting in chair, unable to titrate metoprolol. Thoracentisis today. HR may improve once respiratory status improves. Possible JENI with DC CV tomorrow if HR does not improve. senior care anticoagulation discussed including coumadin or a NOAC. CHADS VASc= 5 for CHF, HTN, age, DM, and CAD. Indications, benefits, use , and adverse effects of anticoagulants reviewed. He prefers coumadin d/t being on it in the past for DVT. Ok to d/c plavix (BMS 05/2016), continue aspirin. Will start after TTE and possible thoracentesis. Lovenox therapeutic dosing for now. PFT baseline ordered in outpt setting for amiodarone monitoring. TTE with poor visualization. Will consider repeat after HR and breathing better controlled. (3) Atrial flutter with rapid ventricular response Current Visit: Yes Status: Acute See plan above. (4) CAD (coronary artery disease) Current Visit: Yes Status: Chronic S/p STEMI 05/2016, BMS x 2 to RCA 05/2016, 4V CABG 08/12/16. Continue aspirin, statin, and bb. Denies chest pain. Qualifiers: Coronary Disease-Associated Artery/Lesion type: [place] artery [place] vs. transplanted heart: [place] heart Associated angina: without angina Qualified Code(s): I25.10 - Atherosclerotic heart disease of [place] coronary artery without angina pectoris (5) CHF (congestive heart failure) Current Visit: Yes Status: Acute Acute diastolic CHF. Most recent echocardiogram in 05/16 with EF of 55% and mild diastolic left ventricular dysfunction. Likely secondary to diastolic dysfunction with atrial fib/flutter with RVR. C/O 20lbs weight gain in past month,worsening lower extremity edema bilaterally , and orthopnea. BNP 335. Continue IV lasix. Diuresing well, negative 3085. Strict I/Os Daily weights. Low sodium diet. Potassium 3.4-replaced by hospitalist. Agree with thoracentesis. BLE doppler preliminary negative- discussed with aviation maintenance technician. Qualifiers: Congestive heart failure type: diastolic Congestive heart failure chronicity: acute on chronic Qualified Code(s): I50.33 - Acute on chronic diastolic (congestive) heart failure (6) Stasis dermatitis Current Visit: Yes Status: Acute Wound care recommended anti-fungal cream and wraps. Appreciate recs. Hospitalist also following. Qualifiers: Laterality: bilateral Qualified Code(s): I83.11 - Varicose veins of right lower extremity with inflammation; I83.12 - Varicose veins of left lower extremity with inflammation Discussion w patient/family: The assessment and plan as outlined above was discussed with the patient and/or family members who expressed understanding and agreement. All questions were answered. Thank you for involving us in the care of your patient. Please call with any questions. Subjective Principal diagnosis: Afib with RVR, CHF Interval history: Pt sitting in chair. Denies chest pain. Reports decreased swelling. Objective Vital Signs, Last 4 Hours Temp Pulse Resp BP Pulse Ox 09/10/16 11:10 98.5 F 115 14 86/65 95 09/10/16 10:54 16 95 General: Conversant, No Apparent Distress HEENT: Atraumatic, Normocephaly, Mucus Membranes Moist Neck: No JVD, Normal carotid pulses Cardiac: Reg Rate and Rhythm, Normal S1 and S2, No Murmur Lungs: Other (Respirations mildly labored sitting in chair on 2.5 L NC, diminished breath sounds on the right, faint expiratory wheezes. ) Neuro: Alert and responsive, No focal deficits noted Abdomen: Soft, Non-Tender Skin: Other (BLE redness/ brown discoloration. Kerlix wraps on BLE. ) Musculoskeletal: No Chest Wall Tenderness Extremities: No Clubbing, No Cyanosis, Normal Pulses, Other (2+ edema from hips to ankles and 3 +from ankles to feet. No significant change seen. ) Results 09/10/16 04:46 09/10/16 04:46 Lab Results 09/10/16 09/10/16 09/10/16 04:46 04:46 04:46 WBC 8.1 Hgb 10.2 L Hct 31.8 L Plt Count 282 INR 1.5 Sodium 140 Potassium 3.4 L Chloride 100 Carbon Dioxide 30 H BUN 13 Creatinine 0.84 Glucose 98 Calcium 8.4 L - Imaging and Cardiology Echo: report reviewed (LImited study d/t elevated HR and body habitus. Consider repeating once HR controlled.) Consult Discharge Plan - Plan Referrals: Luis Garcia MD [Primary Care Provider] -
[2016-09-10 15:20] LABS: Alanine Aminotransferase 19 Units/L (0-55); Albumin 2.8 g/dL (3.5-5.0); Albumin/Globulin Ratio 0.7 (1.1-2.2); Alkaline Phosphatase 133 Units/L (38-126); Aspartate Amino Transferase 22 Units/L (5-34); BUN/Creatinine Ratio 14 (6-26); Bilirubin,Total 0.6 mg/dL (0.2-1.2); Blood Urea Nitrogen 13 mg/dL (8-26); Carbon Dioxide 30 mEq/L (19-29); Chloride 101 mEq/L (98-109); Globulin 3.9 g/dL (2.4-3.5); Glucose 101 mg/dL (70-99); Lactate Dehydrogenase 227 Units/L (159-327); Osmolality,Calculated 292 (280-300); Sodium 141 mEq/L (136-145); Total Protein 6.7 g/dL (6.0-8.3); eGFR For African Americans > 60 (> 60); eGFR For Non-African Americans > 60 (> 60)
--- NOTE | 2016-09-10 15:25 | IR Procedure Note ---
Date of procedure: 09/10/16 Consent Obtained: Verbal consent, Written consent Timeout: Correct patient and procedure verified, Correct site verified, Time out performed, Skin prep completed Local anesthetic: Lidocaine 1% Indications: Left pleural effusion Procedure Performed: Left thoracentesis Site/Technique: Left thoracentesis performed Results/Findings: Moderate pleural effusion Estimated blood loss (cc): 2 Complications: None; Tolerated procedure well Post Procedure Treatment Plan: Continue inpatient care
[2016-09-10 19:14] LABS: Glucose,Pleural Fluid 135 mg/dL (No Ref Range); LDH,Pleural Fluid 182 Units/L (No Ref Range)
[2016-09-10 19:15] LABS: Total Protein,Pleural Fluid 2.9 g/dL (No Ref Range)
[2016-09-10 20:13] LABS: Appearance of Pleural Fl Bloody (Clear)
[2016-09-10] MEDS: traZODone 50 MG TABLET PO SCH (21:26)
[2016-09-11] MEDS: Azithromycin 500 MG in D5% in Water 250 ML IVPB SCH (01:48)
[2016-09-11] MEDS: Ipratropium/Albuterol Neb 3 ML IH SCH ×4 (04:29→22:14)
[2016-09-11 05:13] LABS: Basophils % 0.2 %; Eosinophils # 0.6 K/mcL (0.0-0.6); Eosinophils % 7.1 %; Hemoglobin 10.6 g/dL (12.9-16.9); Immature Granulocytes % 0.6 % (0-4); Lymphocytes # 2.3 K/mcL (0.6-4.6); Mean Corpuscular HGB Conc 31.2 g/dL (31.6-35.5); Mean Corpuscular Hemoglobin 26.8 pg (28.0-33.3); Mean Corpuscular Volume 85.9 fL (83.0-100.0); Mean Platelet Volume 8.8 fL (9.4-12.4); Monocytes # 0.8 K/mcL (0.0-1.3); Platelet Count 245 K/mcL (140-400); Red Blood Count 3.96 M/mcL (4.19-5.50); Red Cell Distribution Width 14.9 % (11.5-14.5); Segmented Neutrophils % 57.1 %
[2016-09-11 05:16] LABS: INR 1.4; Prothrombin Time 15.5 Seconds (9.4-12.1)
[2016-09-11 05:33] LABS: BUN/Creatinine Ratio 17 (6-26); Blood Urea Nitrogen 14 mg/dL (8-26); Calcium 8.4 mg/dL (8.6-10.8); Carbon Dioxide 29 mEq/L (19-29); Chloride 102 mEq/L (98-109); Glucose 104 mg/dL (70-99); Osmolality,Calculated 289 (280-300); Potassium 3.6 mEq/L (3.5-4.5); Sodium 139 mEq/L (136-145); eGFR For African Americans > 60 (> 60); eGFR For Non-African Americans > 60 (> 60)
[2016-09-11] MEDS: *HR* Enoxaparin 150 MG/ML SYRINGE SQ SCH ×2 (05:42→17:19)
[2016-09-11] MEDS: Aspirin 81 MG TAB.CHEW PO SCH (08:40)
[2016-09-11] MEDS: Furosemide 40 MG/4 ML VIAL IVP SCH ×2 (08:40→17:18)
[2016-09-11] MEDS: clonazePAM 1 MG TABLET PO SCH ×2 (08:40→22:06)
[2016-09-11] MEDS: *HR* Amiodarone 200 MG TABLET PO SCH (08:40)
[2016-09-11] MEDS: Gabapentin 100 MG CAPSULE PO SCH ×3 (08:41→22:05)
[2016-09-11] MEDS: Insulin LISPRO 300 UNITS/3 ML VIAL SQ SCH ×4 (08:42→22:06)
[2016-09-11] MEDS ORDERED: Furosemide 20 MG/2 ML VIAL IVP ONE (09:05)
--- NOTE | 2016-09-11 09:11 | Cardiology Progress Note ---
Date of Encounter: 09/11/16 Time of Encounter: 09:09 Assessment and Plan (1) Pleural effusion, left Current Visit: Yes Status: Acute Large left pleural effusion with compressive atelectasis. S/p thoracentesis with 1100ml removal. Sent for cytology. (2) Atrial fibrillation with RVR Current Visit: Yes Status: Acute Initial EKG in cardiology office showed 2:1 atrial flutter, HR 114. Telemetry review showed atrial fibrillation and now atrial flutter this morning. Avg HR 108. Recurrent afib. Pt did have a short episode of post-operative afib and was placed on amiodarone. On lopressor 100 mg BID. IV metoprolol PRN. Blood pressure 86/63-111/76. HR may improve once respiratory status improves. Continues to have SOB and wheezing today. Possible JEIN with DCCV once SOB/fluid overload improves. 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 CHADS VASc= 5 for CHF, HTN, age, DM, and CAD. Indications, benefits, use , and adverse effects of anticoagulants reviewed. He prefers coumadin d/t being on it in the past for DVT. Ok to d/c plavix (BMS 05/2016), continue aspirin. Start coumadin today. Coumadin clinic referral. PFT baseline ordered in outpt setting for amiodarone monitoring. TTE with poor visualization. Will consider repeat after HR and breathing better controlled. (3) Atrial flutter with rapid ventricular response Current Visit: Yes Status: Acute See plan above. (4) CAD (coronary artery disease) Current Visit: Yes Status: Chronic S/p STEMI 05/2016, BMS x 2 to RCA 05/2016, 4V CABG 08/12/16. Continue aspirin, statin, and bb. Denies chest pain. Qualifiers: Coronary Disease-Associated Artery/Lesion type: [place] artery [place] vs. transplanted heart: [place] heart Associated angina: without angina Qualified Code(s): I25.10 - Atherosclerotic heart disease of [place] coronary artery without angina pectoris (5) CHF (congestive heart failure) Current Visit: Yes Status: Acute Acute diastolic CHF. Most recent echocardiogram in 05/16 with EF of 55% and mild diastolic left ventricular dysfunction. Likely secondary to diastolic dysfunction with atrial fib/flutter with RVR. C/O 20lbs weight gain in past month,worsening lower extremity edema bilaterally , and orthopnea. BNP 335. Increase lasix to 80 mg BID. Net negative 1240 for 24 hour. 4 KG wt gain in 24 hour. Consider aldactone if no improvement. Strict I/Os Daily weights. Low sodium diet. Potassium 3.6. Kidney function stable. BLE doppler preliminary negative for DVT- discussed with cardiovascular tech. Qualifiers: Congestive heart failure type: diastolic Congestive heart failure chronicity: acute on chronic Qualified Code(s): I50.33 - Acute on chronic diastolic (congestive) heart failure Discussion w patient/family: The assessment and plan as outlined above was discussed with the patient and/or family members who expressed understanding and agreement. All questions were answered. Thank you for involving us in the care of your patient. Please call with any questions. Subjective Principal diagnosis: Afib with RVR, CHF Interval history: C/o Cough and pain around thoracentesis site. Continues to have SOB despite thoracentesis. Objective Vital Signs, Last 4 Hours Temp Pulse Resp BP Pulse Ox 09/11/16 07:32 97.8 F 117 18 111/76 96 General: Conversant HEENT: Atraumatic, Normocephaly, Mucus Membranes Moist Neck: No JVD, Normal carotid pulses Cardiac: Other (irregularly irregular, HR 116 aflutter) Lungs: Other (Course rhonci and wheezing throughout.) Neuro: Alert and responsive, No focal deficits noted Abdomen: Soft, Non-Tender Skin: Other (redness in LLE. kerlix wraps intact) Musculoskeletal: No Chest Wall Tenderness Extremities: Other (2+ edema from hips to below the knees. 3+ edema in his bilateral feet. ) Results 09/11/16 04:39 09/11/16 04:39 Lab Results 09/10/16 09/11/16 09/11/16 14:45 04:39 04:39 WBC 8.8 Hgb 10.6 L Hct 34.0 L Plt Count 245 INR Sodium 141 139 Potassium 4.0 3.6 Chloride 101 102 Carbon Dioxide 30 H 29 BUN 13 14 Creatinine 0.92 0.84 Glucose 101 H 104 H Calcium 9.0 8.4 L Total Bilirubin 0.6 AST 22 ALT 19 Alkaline Phosphatase 133 H 09/11/16 04:39 WBC Hgb Hct Plt Count INR 1.4 Sodium Potassium Chloride Carbon Dioxide BUN Creatinine Glucose Calcium Total Bilirubin AST ALT Alkaline Phosphatase Chest CTA 09/08/16 18:38 IMPRESSION: 1. No evidence of pulmonary embolism. 2. Large left pleural effusion and compressive atelectasis of left lower lobe. 3. Scattered opacities in right lung may reflect mild pneumonia or edema. D/ : / 09/08/2016 22:32:28 Colton Piper MD / [facility] Interpreting Provider: Colton Piper MD Thoracentesis Ultrasound 09/10/16 11:50 IMPRESSION: Successful ultrasound guided thoracentesis. D/ /10/2016 16:02:31 Crow Knox MD / [facility] Interpreting Provider: Crow Knox MD Chest X-Ray 09/10/16 15:25 IMPRESSION: No pneumothorax following left-sided thoracentesis. Small residual left pleural effusion, decreased from the prior examination. D/ / Crow Knox MD / Crow Knox MD Interpreting Provider: Crow Knox MD - EKG Interpretation EKG results cardiology: other (24 hour telemetry review shows atrial flutter HR 116 currently.) Consult Discharge Plan - Plan Instructions: Heart Failure (DC), Atrial Fibrillation (DC), Diabetes Mellitus Type 2 in Adults (DC), Chronic Obstructive Pulmonary Disease (DC), Chronic Hypertension (DC), Cigarette Smoking and Your Health, Nurses' Association Executive Director (GEN) Referrals: Luis Garcia MD [Primary Care Provider] -
[2016-09-11] MEDS: Miconazole 2% ointment 114 GM TUBE TP SCH (10:56)
--- NOTE | 2016-09-11 11:11 | Internal Med Progress Note ---
<Eloy Garcia - Last Filed: 09/11/16 14:30> Date of Encounter: 09/11/16 Time of Encounter: 11:09 - Assessment and plan (1) Atrial fibrillation with RVR Current Visit: Yes Status: Acute Assessment and plan: Patient still is in AFib RVR with HR in 110's this morning Will continue with Amiodarone and Metoprolol PO and IV PRN Cardiology following, possible JENI/DCCV tomorrow Currently on therapeutic Lovenox, patient is bridging to Coumadin which was started today (2) Pleural effusion, left Current Visit: Yes Status: Acute Assessment and plan: s/p thoracentesis 09/10 with removal of 1.1 L bloody fluid Fluid analysis shows exudative fluid as pleural LDH:serum LDH > 0.6 Cytology pending Patient is clinically breathing better (3) Pneumonia Current Visit: Yes Status: Suspected Assessment and plan: Possible pneumonia superimposed on left pleural effusion Will continue on Rocephin and Zithromax, day 2 Patient has been afebrile with normal white count Blood cultures collected, results are pending Qualifiers: Pneumonia type: due to unspecified organism Laterality: right Lung location: unspecified part of lung Qualified Code(s): J18.9 - Pneumonia, unspecified organism (4) CHF (congestive heart failure) Current Visit: Yes Status: Acute Assessment and plan: Echocardiogram performed was difficult to interpret, may re-obtain once HR is more controlled Continue on Lasix IV 80 BID and Lopressor 100 mg BID Patient has been net negative 4 L since admission Qualifiers: Congestive heart failure type: diastolic Congestive heart failure chronicity: acute on chronic Qualified Code(s): I50.33 - Acute on chronic diastolic (congestive) heart failure (5) HTN (hypertension) Current Visit: No Status: Chronic Assessment and plan: Blood pressures have well controlled Will continue home medications as patient may tolerate Qualifiers: Hypertension type: essential hypertension Qualified Code(s): I10 - Essential (primary) hypertension (6) CAD (coronary artery disease) Current Visit: Yes Status: Chronic Assessment and plan: Stable, no complaints of chest pain during admission Continue ASA, Lipitor, Plavix, BB, nitro Qualifiers: Coronary Disease-Associated Artery/Lesion type: [place] artery [place] vs. transplanted heart: [place] heart Associated angina: without angina Qualified Code(s): I25.10 - Atherosclerotic heart disease of [place] coronary artery without angina pectoris (7) COPD (chronic obstructive pulmonary disease) Current Visit: No Status: Chronic Assessment and plan: Continue supportive measures with supplemental oxygen, scheduled breathing treatments Qualifiers: COPD type: unspecified COPD Qualified Code(s): J44.9 - Chronic obstructive pulmonary disease, unspecified (8) Non-insulin dependent type 2 diabetes mellitus Current Visit: Yes Status: Chronic Assessment and plan: Continue patient on low dose SSI ACHS accuchecks per protocol Blood sugars have been well controlled during hospital course (9) DVT prophylaxis Current Visit: Yes Status: Acute Assessment and plan: Currently on therapeutic Lovenox bridging to Coumadin - Subjective Interval history: Pt seen and examined. He states he is breathing better this morning after his procedure yesterday and only has complaints of pain where he had his thoracentesis. He has been coughing but denies any sputum production. Has no issues with nausea, vomiting, diarrhea, fevers. - Constitutional Vitals: Temp Pulse Resp BP Pulse Ox 97.8 F 117 18 111/76 96 09/11/16 07:32 09/11/16 07:32 09/11/16 07:32 09/11/16 07:32 09/11/16 07:32 General appearance: Present: cooperative, pleasant, obese - Head Head exam: Present: atraumatic, normocephalic - Eye Eye exam: Present: PERRL, conjuntiva pink, sclera anicteric - Neck Neck exam general surgery: Present: supple, trachea midline. Absent: lymphadenopathy - Respiratory Respiratory exam: Present: wheezes. Absent: accessory muscle use, rales, rhonchi - Cardiovascular Cardiovascular exam: Present: irregular rhythm, +S1, +S2, tachycardia. Absent: diastolic murmur, gallop, rubs, systolic murmur - GI/Abdominal GI/Abdominal exam: Present: normal bowel sounds, soft, no peritoneal signs. Absent: distended, tenderness - Extremities Exam Extremities exam: Present: pedal edema (2+ pitting edema), warm, radial pulses palpable and symetrical. Absent: calf tenderness, cyanotic - Neurological Exam Neurological exam: Present: alert, no focal deficits. Absent: facial droop, speech deficit - Skin Skin exam: Present: dry, intact Internal Medicine: Result - Labs CBC & Chem 7: 09/11/16 04:39 09/11/16 04:39 Labs: Short CBC 09/11/16 Range/Units 04:39 WBC 8.8 (4.3-11.1) K/mcL Hgb 10.6 L (12.9-16.9) g/dL Hct 34.0 L (37.5-50.1) % Plt Count 245 (140-400) K/mcL Neutrophils # 5.0 (1.6-8.9) K/mcL BMP 09/10/16 09/11/16 14:45 04:39 Sodium 141 139 Potassium 4.0 3.6 Chloride 101 102 Carbon Dioxide 30 H 29 BUN 13 14 Creatinine 0.92 0.84 Glucose 101 H 104 H Calcium 9.0 8.4 L Liver Function 09/10/16 Range/Units 14:45 Total Bilirubin 0.6 (0.2-1.2) mg/dL AST 22 (5-34) Units/L ALT 19 (0-55) Units/L Alkaline Phosphatase 133 H (38-126) Units/L Albumin 2.8 L (3.5-5.0) g/dL - ABG Interpretation ABG results: PT/INR, D-dimer PT 15.5 Seconds (9.4-12.1) H 09/11/16 04:39 D-Dimer 1605 ng/mLFEU (0-500) H 09/08/16 17:35 - Impressions Impressions Thoracentesis Ultrasound 09/10/16 11:50 IMPRESSION: Successful ultrasound guided thoracentesis. D/ : / 09/10/2016 16:02:31 Crow Knox MD / [facility] Interpreting Provider: Crow Knox MD Chest X-Ray 09/10/16 15:25 IMPRESSION: No pneumothorax following left-sided thoracentesis. Small residual left pleural effusion, decreased from the prior examination. D/ / Crow Knox MD / Crow Knox MD Interpreting Provider: Crow Knox MD Consult Discharge Plan - Plan Instructions: Heart Failure (DC), Atrial Fibrillation (DC), Diabetes Mellitus Type 2 in Adults (DC), Chronic Obstructive Pulmonary Disease (DC), Chronic Hypertension (DC), Cigarette Smoking and Your Health, Sterilization Technician (GEN) Referrals: Luis Garcia MD [Primary Care Provider] - <Garrett Doshi P - Last Filed: 09/11/16 18:28> - Constitutional Vitals: Temp Pulse Resp BP Pulse Ox 98.1 F 117 16 108/61 96 09/11/16 16:32 09/11/16 16:32 09/11/16 16:32 09/11/16 16:32 09/11/16 16:32 Internal Medicine: Result - Labs CBC & Chem 7: 09/11/16 04:39 09/11/16 04:39 Labs: Short CBC 09/11/16 Range/Units 04:39 WBC 8.8 (4.3-11.1) K/mcL Hgb 10.6 L (12.9-16.9) g/dL Hct 34.0 L (37.5-50.1) % Plt Count 245 (140-400) K/mcL Neutrophils # 5.0 (1.6-8.9) K/mcL BMP 09/11/16 04:39 Sodium 139 Potassium 3.6 Chloride 102 Carbon Dioxide 29 BUN 14 Creatinine 0.84 Glucose 104 H Calcium 8.4 L - ABG Interpretation ABG results: PT/INR, D-dimer PT 15.5 Seconds (9.4-12.1) H 09/11/16 04:39 D-Dimer 1605 ng/mLFEU (0-500) H 09/08/16 17:35 - Impressions Impressions Thoracentesis Ultrasound 09/10/16 11:50 IMPRESSION: Successful ultrasound guided thoracentesis. D/ /10/2016 16:02:31 Crow Knox MD / [facility] Interpreting Provider: Crow Knox MD - Attending Attestation I examined this patient and my medical decision-making was reviewed with the COKE DRAWER HAND/PA/Advanced Practice Nurse/Resident Physician. I agree with the documented findings, disposition and treatment plan as described except to the extent set forth below.
[2016-09-11] MEDS: *HR* Warfarin 2.5 MG TABLET PO SCH (17:18)
[2016-09-11] MEDS: traZODone 50 MG TABLET PO SCH (22:04)
[2016-09-12] MEDS: Azithromycin 500 MG in D5% in Water 250 ML IVPB SCH (02:10)
[2016-09-12] MEDS: Ipratropium/Albuterol Neb 3 ML IH SCH ×4 (04:21→22:46)
[2016-09-12 05:11] LABS: Basophils % 0.4 %; Eosinophils # 0.7 K/mcL (0.0-0.6); Hematocrit 32.8 % (37.5-50.1); Hemoglobin 10.4 g/dL (12.9-16.9); Immature Granulocytes % 0.6 % (0-4); Lymphocytes # 2.7 K/mcL (0.6-4.6); Lymphocytes % 28.4 %; Mean Corpuscular HGB Conc 31.7 g/dL (31.6-35.5); Mean Corpuscular Hemoglobin 27.1 pg (28.0-33.3); Mean Corpuscular Volume 85.4 fL (83.0-100.0); Mean Platelet Volume 8.6 fL (9.4-12.4); Monocytes # 0.9 K/mcL (0.0-1.3); Monocytes % 9.9 %; Neutrophils # 5.1 K/mcL (1.6-8.9); Platelet Count 228 K/mcL (140-400); Red Blood Count 3.84 M/mcL (4.19-5.50); Red Cell Distribution Width 15.1 % (11.5-14.5); Segmented Neutrophils % 53.7 %
[2016-09-12] MEDS: *HR* Enoxaparin 150 MG/ML SYRINGE SQ SCH ×2 (05:12→17:02)
[2016-09-12 05:28] LABS: BUN/Creatinine Ratio 16 (6-26); Blood Urea Nitrogen 13 mg/dL (8-26); Calcium 8.5 mg/dL (8.6-10.8); Carbon Dioxide 31 mEq/L (19-29); Chloride 101 mEq/L (98-109); Glucose 99 mg/dL (70-99); Osmolality,Calculated 288 (280-300); Potassium 3.4 mEq/L (3.5-4.5); Sodium 139 mEq/L (136-145); eGFR For African Americans > 60 (> 60); eGFR For Non-African Americans > 60 (> 60)
[2016-09-12] MEDS: Warfarin perPT PO SCH ×2 (08:10→17:27)
[2016-09-12] MEDS: Insulin LISPRO 300 UNITS/3 ML VIAL SQ SCH ×3 (08:33→17:05)
[2016-09-12] MEDS: Furosemide 40 MG/4 ML VIAL IVP SCH ×2 (08:34→17:02)
[2016-09-12] MEDS: Aspirin 81 MG TAB.CHEW PO SCH (08:34)
[2016-09-12] MEDS: clonazePAM 1 MG TABLET PO SCH (08:34)
[2016-09-12] MEDS: Gabapentin 100 MG CAPSULE PO SCH ×2 (08:35→17:03)
[2016-09-12] MEDS: *HR* Amiodarone 200 MG TABLET PO SCH (08:35)
[2016-09-12 09:03] LABS: INR 1.4; Prothrombin Time 15.7 Seconds (9.4-12.1)
--- NOTE | 2016-09-12 09:05 | Event Note ---
Date of Encounter: 09/12/16 Time of Encounter: 09:09 - Cardiology Event Note Resting in bed quietly. Symptoms improved. BLE decreasing. Tolerating diuretic well. Add one time dose of aldactone now and extra IV lasix this morning. Continues to have a lot of course rhonci. Rhonci comes and goes per nursing staff. SPO2 97% on 2L. Possible JENI/ DCCV this afternoon. We will re-evaluate later this morning. HR currently 120's. Instructed Jeferson VELASCO to give IV lopressor. Continue amiodarone and oral lopressor.
[2016-09-12] MEDS ORDERED: Spironolactone 25 MG TABLET PO ONE (09:10)
--- NOTE | 2016-09-12 09:10 | Internal Med Progress Note ---
<Eloy Garcia - Last Filed: 09/12/16 15:44> Date of Encounter: 09/12/16 Time of Encounter: 09:08 - Assessment and plan (1) Atrial fibrillation with RVR Current Visit: Yes Status: Acute Assessment and plan: Patient still is in AFib RVR with HR in 110-120's this morning Will continue with Amiodarone and Metoprolol PO and IV PRN Cardiology following, possible JENI/DCCV over weekend Currently on therapeutic Lovenox, patient is bridging to Coumadin which was started today (2) Pleural effusion, left Current Visit: Yes Status: Acute Assessment and plan: s/p thoracentesis 09/10 with removal of 1.1 L bloody fluid Fluid analysis shows exudative fluid as pleural LDH:serum LDH > 0.6 Cytology pending (3) Pneumonia Current Visit: Yes Status: Suspected Assessment and plan: Possible pneumonia superimposed on left pleural effusion Will continue on Rocephin and Zithromax, day 3 Patient has been afebrile with normal white count Blood cultures collected, negative so far Qualifiers: Pneumonia type: due to unspecified organism Laterality: right Lung location: unspecified part of lung Qualified Code(s): J18.9 - Pneumonia, unspecified organism (4) CHF (congestive heart failure) Current Visit: Yes Status: Acute Assessment and plan: Echocardiogram performed was difficult to interpret, may re-obtain once HR is more controlled Continue on Lasix IV 80 BID and Lopressor 100 mg BID Patient has been net negative 6 L since admission Qualifiers: Congestive heart failure type: diastolic Congestive heart failure chronicity: acute on chronic Qualified Code(s): I50.33 - Acute on chronic diastolic (congestive) heart failure (5) HTN (hypertension) Current Visit: No Status: Chronic Assessment and plan: Blood pressures have well controlled Will continue home medications as patient may tolerate Qualifiers: Hypertension type: essential hypertension Qualified Code(s): I10 - Essential (primary) hypertension (6) CAD (coronary artery disease) Current Visit: Yes Status: Chronic Assessment and plan: Stable, no complaints of chest pain during admission Continue ASA, Lipitor, Plavix, BB, nitro Qualifiers: Coronary Disease-Associated Artery/Lesion type: [place] artery [place] vs. transplanted heart: [place] heart Associated angina: without angina Qualified Code(s): I25.10 - Atherosclerotic heart disease of [place] coronary artery without angina pectoris (7) COPD (chronic obstructive pulmonary disease) Current Visit: No Status: Chronic Assessment and plan: Continue supportive measures with supplemental oxygen, scheduled breathing treatments Qualifiers: COPD type: unspecified COPD Qualified Code(s): J44.9 - Chronic obstructive pulmonary disease, unspecified (8) Non-insulin dependent type 2 diabetes mellitus Current Visit: Yes Status: Chronic Assessment and plan: Continue patient on low dose SSI ACHS accuchecks per protocol Blood sugars have been well controlled during hospital course (9) DVT prophylaxis Current Visit: Yes Status: Acute Assessment and plan: Currently on therapeutic Lovenox bridging to Coumadin - Subjective Interval history: Pt seen and examined. He states that his breathing and cough is roughly the same as yesterday and is nonproductive. Denies pain anywhere and has no fever, chills, nausea, vomiting, diarrhea. - Constitutional Vitals: Temp Pulse Resp BP Pulse Ox 98.2 F 121 16 126/64 98 09/12/16 07:29 09/12/16 07:29 09/12/16 07:29 09/12/16 07:29 09/12/16 07:29 General appearance: Present: cooperative, pleasant, no acute distress, obese - Head Head exam: Present: atraumatic, normocephalic - Eye Eye exam: Present: PERRL, conjuntiva pink, sclera anicteric - Neck Neck exam general surgery: Present: supple, trachea midline. Absent: lymphadenopathy - Respiratory Respiratory exam: Present: wheezes. Absent: accessory muscle use, rales, rhonchi - Cardiovascular Cardiovascular exam: Present: +S1, +S2, tachycardia. Absent: diastolic murmur, gallop, rubs, systolic murmur - GI/Abdominal GI/Abdominal exam: Present: normal bowel sounds, soft, no peritoneal signs. Absent: distended, tenderness - Extremities Exam Extremities exam: Present: pedal edema (pitting), warm, radial pulses palpable and symetrical. Absent: calf tenderness, cyanotic - Neurological Exam Neurological exam: Present: alert, no focal deficits. Absent: facial droop, speech deficit - Skin Skin exam: Present: dry, intact Internal Medicine: Result - Labs CBC & Chem 7: 09/12/16 04:29 09/12/16 04:29 Labs: Short CBC 09/12/16 Range/Units 04:29 WBC 9.5 (4.3-11.1) K/mcL Hgb 10.4 L (12.9-16.9) g/dL Hct 32.8 L (37.5-50.1) % Plt Count 228 (140-400) K/mcL Neutrophils # 5.1 (1.6-8.9) K/mcL BMP 09/12/16 04:29 Sodium 139 Potassium 3.4 L Chloride 101 Carbon Dioxide 31 H BUN 13 Creatinine 0.81 Glucose 99 Calcium 8.5 L - ABG Interpretation ABG results: PT/INR, D-dimer PT 15.7 Seconds (9.4-12.1) H 09/12/16 08:49 D-Dimer 1605 ng/mLFEU (0-500) H 09/08/16 17:35 Consult Discharge Plan - Plan Instructions: Heart Failure (DC), Atrial Fibrillation (DC), Diabetes Mellitus Type 2 in Adults (DC), Chronic Obstructive Pulmonary Disease (DC), Chronic Hypertension (DC), Cigarette Smoking and Your Health, Bacteriologist Soil (GEN) Additional Instructions: Follow-up with your PCP in 1-2 weeks Follow-up with cardiology in 1-2 weeks Take all medications prescribed Return to work department if return of symptoms, development chest pain, development of fever/chills, developed shortness of breath Referrals: Luis Garcia MD [Primary Care Provider] - <Garrett Doshi P - Last Filed: 09/12/16 18:10> - Constitutional Vitals: Temp Pulse Resp BP Pulse Ox 98.2 F 118 16 105/73 98 09/12/16 11:35 09/12/16 11:35 09/12/16 16:26 09/12/16 11:35 09/12/16 16:26 Internal Medicine: Result - Labs CBC & Chem 7: 09/12/16 04:29 09/12/16 04:29 Labs: Short CBC 09/12/16 Range/Units 04:29 WBC 9.5 (4.3-11.1) K/mcL Hgb 10.4 L (12.9-16.9) g/dL Hct 32.8 L (37.5-50.1) % Plt Count 228 (140-400) K/mcL Neutrophils # 5.1 (1.6-8.9) K/mcL BMP 09/12/16 04:29 Sodium 139 Potassium 3.4 L Chloride 101 Carbon Dioxide 31 H BUN 13 Creatinine 0.81 Glucose 99 Calcium 8.5 L - ABG Interpretation ABG results: PT/INR, D-dimer PT 15.7 Seconds (9.4-12.1) H 09/12/16 08:49 D-Dimer 1605 ng/mLFEU (0-500) H 09/08/16 17:35 - Attending Attestation I examined this patient and my medical decision-making was reviewed with the INTRAOPERATIVE NEURO TECH/PA/Advanced Practice Nurse/Resident Physician. I agree with the documented findings, disposition and treatment plan as described except to the extent set forth below.
[2016-09-12] MEDS ORDERED: Furosemide 40 MG/4 ML VIAL IVP ONE (10:00)
[2016-09-12] MEDS: Budesonide/Formoterol 160/4.5 MDI IH SCH ×2 (11:04→22:25)
[2016-09-12] MEDS ORDERED: Nitroglycerin 1 INCH/GM PACKET TP ONE (11:23)
--- NOTE | 2016-09-12 11:33 | Cardiology Progress Note ---
Date of Encounter: 09/12/16 Time of Encounter: 11:45 Assessment and Plan (1) CHF (congestive heart failure) Current Visit: Yes Status: Acute Acute diastolic CHF. Most recent echocardiogram in 05/16 with EF of 55% and mild diastolic left ventricular dysfunction. Likely secondary to diastolic dysfunction with atrial fib/flutter with RVR. TTE this admission poor study d/t body habitus and elevated HR. Consider repeating once HR controlled. C/O 20lbs weight gain in past month,worsening lower extremity edema bilaterally , and orthopnea. BNP 335. Continue lasix to 80 mg IV BID. Net negative 850 ml for 24 hour. BLE edema improved. Continues to have SOB, orthopnea, and rhonci. Hospitalist added breathing treatment. Discussed with Dr. Buck, we will add aldactone , extra dose of lasix, and add NTG paste today. Strict I/Os Daily weights. Low sodium diet. Potassium 3.4. Replacement given. BLE doppler preliminary negative for DVT- discussed with office technologist. Qualifiers: Congestive heart failure type: diastolic Congestive heart failure chronicity: acute on chronic Qualified Code(s): I50.33 - Acute on chronic diastolic (congestive) heart failure (2) Pleural effusion, left Current Visit: Yes Status: Acute Large left pleural effusion with compressive atelectasis. S/p thoracentesis with 1100ml removal. Cytology pending. (3) Atrial fibrillation with RVR Current Visit: Yes Status: Acute Initial EKG in cardiology office showed 2:1 atrial flutter, HR 114. Continues to be in aflutter Avg HR 120. Pt did have a short episode of post-operative afib in July and was placed on amiodarone. On lopressor 100 mg BID. Continue IV metoprolol PRN. Was not being given. Asked RN to start giving as needed. Blood pressure 95/65-125/72. Planning for JENI/DCCV once respiratory status/fluid overload improves. Continues to have orthopnea and SOB at rest. Course rhonci throughout. Giving extra lasix and aldactone today. Not good candidate for JENI today. Possible JENI/cardioversion thursday. pen[facility] anticoagulation discussed including coumadin or a NOAC. CHADS VASc= 5 for CHF, HTN, age, DM, and CAD. Indications, benefits, use , and adverse effects of anticoagulants reviewed. He prefers coumadin d/t being on it in the past for DVT. Ok to d/c plavix (BMS 05/2016), continue aspirin. Coumadin started 09/11/16, pharmacy dosing. Coumadin clinic referral sent. PFT baseline ordered in outpt setting for amiodarone monitoring. TTE with poor visualization. Will consider repeat after HR and breathing better controlled. (4) Atrial flutter with rapid ventricular response Current Visit: Yes Status: Acute See plan above. (5) CAD (coronary artery disease) Current Visit: Yes Status: Chronic S/p STEMI 05/2016, BMS x 2 to RCA 05/2016, 4V CABG 08/12/16. Continue aspirin, statin, and bb. Denies chest pain. Qualifiers: Coronary Disease-Associated Artery/Lesion type: rosebud artery [place] vs. transplanted heart: rosebud heart Associated angina: without angina Qualified Code(s): I25.10 - Atherosclerotic heart disease of rosebud coronary artery without angina pectoris Discussion w patient/family: The assessment and plan as outlined above was discussed with the patient and/or family members who expressed understanding and agreement. All questions were answered. Thank you for involving us in the care of your patient. Please call with any questions. Subjective Principal diagnosis: Afib with RVR, CHF Interval history: SOB and BLE improving per pt. Denies chest pain. No new events overnight. Objective Vital Signs, Last 4 Hours Temp Pulse Resp BP Pulse Ox 09/12/16 07:29 98.2 F 121 16 126/64 98 General: Conversant HEENT: Atraumatic, Normocephaly, Mucus Membranes Moist Neck: No JVD, Normal carotid pulses Cardiac: Other (Irregularly irregular) Lungs: Other (course rhonci/wheezes scattered throughout, improved with breathing treatment) Neuro: Alert and responsive, No focal deficits noted Abdomen: Soft, Non-Tender Skin: Other (BLE discoloration improved, LLE redness is fading. Kerlix wraps intact. ) Musculoskeletal: No Chest Wall Tenderness Extremities: No Clubbing, No Cyanosis, Normal Pulses, Other (BLE edema improved. Now down to his knees 1+ edema and 2+ around ankles and feet. ) Results 09/12/16 04:29 09/12/16 04:29 Lab Results 09/12/16 09/12/16 09/12/16 04:29 04:29 08:49 WBC 9.5 Hgb 10.4 L Hct 32.8 L Plt Count 228 INR 1.4 Sodium 139 Potassium 3.4 L Chloride 101 Carbon Dioxide 31 H BUN 13 Creatinine 0.81 Glucose 99 Calcium 8.5 L - EKG Interpretation EKG results cardiology: other (24 hour telemetry review shows avg HR 120 bpm atrial flutter.) Consult Discharge Plan - Plan Instructions: Heart Failure (DC), Atrial Fibrillation (DC), Diabetes Mellitus Type 2 in Adults (DC), Chronic Obstructive Pulmonary Disease (DC), Chronic Hypertension (DC), Cigarette Smoking and Your Health, Commercial Sales Consultant (GEN) Referrals: Luis Garcia MD [Primary Care Provider] -
[2016-09-12 11:36] VITALS: BP 105/73
[2016-09-12] MEDS: methylPREDNISolone 125 MG/2 ML VIAL IVP SCH ×2 (11:52→17:02)
[2016-09-12] MEDS: *HR* Metoprolol 5 MG/5 ML VIAL IVP PRN (14:42)
[2016-09-12] MEDS: Miconazole 2% ointment 114 GM TUBE TP SCH (17:03)
[2016-09-12] MEDS: *HR* Warfarin 2.5 MG TABLET PO SCH (17:03)
--- NOTE | 2016-09-12 17:57 | Discharge Summary ---
<Andrea Whittington - Last Filed: 09/12/16 17:54> Date of Encounter: 09/12/16 Time of Encounter: 10:40 - Discharge Diagnosis (1) Atrial fibrillation with RVR Priority: Primary Status: Acute (2) Pleural effusion, left Priority: Primary Status: Acute (3) Pneumonia Priority: Primary Status: Suspected Qualifiers: Pneumonia type: due to unspecified organism Laterality: right Lung location: unspecified part of lung Qualified Code(s): J18.9 - Pneumonia, unspecified organism (4) CHF (congestive heart failure) Priority: Primary Status: Acute Qualifiers: Congestive heart failure type: diastolic Congestive heart failure chronicity: acute on chronic Qualified Code(s): I50.33 - Acute on chronic diastolic (congestive) heart failure (5) HTN (hypertension) Priority: Primary Status: Chronic Qualifiers: Hypertension type: essential hypertension Qualified Code(s): I10 - Essential (primary) hypertension (6) CAD (coronary artery disease) Priority: Secondary Status: Chronic Qualifiers: Coronary Disease-Associated Artery/Lesion type: [place] artery [place] vs. transplanted heart: mi[place]kmaq heart Associated angina: without angina Qualified Code(s): I25.10 - Atherosclerotic heart disease of [place] coronary artery without angina pectoris (7) COPD (chronic obstructive pulmonary disease) Priority: Secondary Status: Chronic Qualifiers: COPD type: unspecified COPD Qualified Code(s): J44.9 - Chronic obstructive pulmonary disease, unspecified (8) Non-insulin dependent type 2 diabetes mellitus Priority: Primary Status: Chronic (9) DVT prophylaxis Priority: Secondary Status: Acute - Discharge Medications Home Medications: Albuterol Sulfate [Albuterol Inhaler] 2 puff IH Q4H PRN 05/20/16 [History] ClonazePAM [Klonopin] 1 mg PO BID PRN 05/20/16 [History] Escitalopram [Lexapro] 20 mg PO HS 05/20/16 [History] Gabapentin [Neurontin] 100 mg PO TID 05/20/16 [History] Ipratropium/Albuterol Neb [Duoneb] 3 ml IH Q4H PRN 05/20/16 [History] Metformin HCl [Metformin HCl ER] 500 mg PO QPM 05/20/16 [History] Quetiapine Fumarate [Seroquel] 50 - 100 mg PO HS 05/20/16 [History] Trazodone HCl 150 - 300 mg PO HS PRN 05/20/16 [History] Aspirin 81 mg PO DAILY #30 tab.chew 05/22/16 [Rx] Atorvastatin [Lipitor] 80 mg PO HS #30 tablet 05/22/16 [Rx] Clopidogrel [Plavix] 75 mg PO DAILY #30 tablet 05/22/16 [Rx] Nitroglycerin 0.4 mg SL Q5MIN PRN #25 tab.subl 05/22/16 [Rx] Amiodarone [Cordarone] 200 mg PO DAILY #30 tablet 08/20/16 [Rx] Docusate [Colace] 100 mg PO BID #30 capsule 08/20/16 [Rx] Metoprolol [Lopressor] 50 mg PO BID #60 tablet 08/20/16 [Rx] OxyCODONE/APAP 5/325 [Percocet 5/325 MG] 1 each PO Q4HR PRN #30 tablet 08/20/16 [Rx] Acetaminophen [Tylenol] 650 mg PO Q6HR PRN 09/09/16 [History] Budesonide/Formoterol 80/4.5 [Symbicort 80/4.5] 2 puff IH BID 09/09/16 [History ] Furosemide [Lasix] 40 mg PO BID 09/09/16 [History] Guaifenesin [Mucinex] 600 mg PO BID PRN 09/09/16 [History] Polyethylene Glycol 3350 [MiraLAX] 17 gm PO DAILY PRN 09/09/16 [History] Potassium Chloride [K-Tab ER] 20 meq PO BID 09/09/16 [History] Allergies/Adverse Reactions: Allergies No Known Allergies Allergy (Verified 09/09/16 09:34) Procedures/tests Complete & Pending: Procedures Performed prior 72 hours Category Date Time Status IR thoracentesis ultrasound [IR] Routine IR 09/10/16 11:50 Completed EV echocardiogram w enhance Routine Y 09/10/16 07:08 Completed Date of admission: 09/09/16 00:23 Primary care physician: Luis Garcia MD Consults: 09/09/16 01:16 Consult to Physical Therapy [CONS] Routine Comment: Evaluate, develop and implement POC 09/09/16 01:19 Consult to Cardiology [CONS] Routine Comment: Consulting Provider: Cardiology [facility] Reason for Consult: atrial flutter RVR. Instructed to report to ED during followup educational speech language clinician visit. Call Completed: No 09/09/16 09:18 Consult to Loading Shovel Oiler [CONS] Routine Reason for SW Consult: Return to ECF 09/09/16 10:33 Consult to Wound Care [CONS] Routine Reason for Consult: BLE scaling, blisters and openings. also has decubitus ulcer. H/o stasis dermatitis per pt. Please evaluate and treat. Call Completed: No 09/09/16 13:39 Consult to Occupational Therapy [CONS] Routine Comment: Evaluate, develop and implement POC 09/10/16 11:56 Consult to Interventional Radiology [CONS] Routine Consulting Provider: Radiology Interventional [facility] Reason for Consult: thoracentesis Time Notified: 11:56 Call Completed: Yes Discharging clinician: Andrea Whittington Anticipated date of discharge: 09/12/16 - Patient Status Disposition: Transfer Short-Term Hosp Condition: Fair Functional capacity at discharge: independent ambulation Overall status at discharge: patient is not back to baseline - Discharge Instructions Instructions: Heart Failure (DC), Atrial Fibrillation (DC), Diabetes Mellitus Type 2 in Adults (DC), Chronic Obstructive Pulmonary Disease (DC), Chronic Hypertension (DC), Cigarette Smoking and Your Health, Museum Registrar (GEN) Follow Up With: Luis Garcia MD [Primary Care Provider] - Forms: ED Satisfaction Letter Additional Instructions: Follow-up with your PCP in 1-2 weeks Follow-up with cardiology in 1-2 weeks Take all medications prescribed Return to work department if return of symptoms, development chest pain, development of fever/chills, developed shortness of breath - Diet and Activity Activity: as per physical therapy Diet: low fat, low cholesterol, low salt diet Interval History: Patient reports doing relatively well today. Though he still is uncomfortable with an elevated heart rate and some difficulty breathing. Overall he feels improved so Hospital course: Mr. Fierro is a 66 year old male who presented to [place] with chief concern: Rapid heart rate Comorbidities would include: COPD, CAD, DVT, DM, HLD, HTN, PAD, venous stasis, atrial fibrillation and flutter, and previous IL (with previous CABG in 08/15 and 2 bare-metal stents placed in 05/16) @ Hospital course: Mr. Fierro presented to [facility] after being sent here by his educational speech language clinician. The follow-up appointment of his CABG performed last May was found that he had a heart rate of 115 and was sent for the emergency room for further evaluation. At admission he was found to have a heart rate of 115 (irregularly irregular), cough, report fevers, worsening swelling in his legs, and chest x-ray that showed persistent left- sided pleural effusion and scattered opacities in his right lung. He has been receiving treatment for pneumonia and acute exacerbation of CHF. During this admission the patient has consistently been an issue for ablation and atrial flutter. A JENI was recommended by cardiology, but has been held on account of patient respiratory status. He received a thoracentesis on 09/10/16 and 1.1 L of bloody fluid was removed from his left thorax. His breathing has improved, but cardiology has continued to want to hold the JENI until his respiratory status improves. Transesophageal electrocardioversions and unavailable during the weekends and when patient was informed about this he decided he would prefer to be transferred to [facility]. Patient is otherwise stable and safe for transport. @ At time of discharge, patient was clinically improved, hemodynamically stable, progressing to baseline, and agreeable with plan of care. Patient was advised to seek immediate medical attention for any new or worsening symptoms including but not limited to fever, chills, chest pain, chest pressure, dyspnea, cough, abdominal pain, nausea, vomiting, diarrhea, bloody stool, urine and the patient voiced understanding. Patient will follow-up with primary care physician: - Time Spent with Patient Total time spent providing and/or coordinating discharge services: - Constitutional Vitals: Temp Pulse Resp BP Pulse Ox 98.2 F 118 16 105/73 95 09/12/16 11:35 09/12/16 11:35 09/12/16 11:35 09/12/16 11:35 09/12/16 11:35 General appearance: Present: cooperative, pleasant, no acute distress, obese Exam: General appearance: Present: cooperative, pleasant, no acute distress, obese - Head Head exam: Present: atraumatic, normocephalic - Eye Eye exam: Present: PERRL, conjuntiva pink, sclera anicteric - Neck Neck exam general surgery: Present: supple, trachea midline. Absent: lymphadenopathy - Respiratory Respiratory exam: Present: wheezes. Absent: accessory muscle use, rales, rhonchi - Cardiovascular Cardiovascular exam: Present: +S1, +S2, tachycardia. Absent: diastolic murmur, gallop, rubs, systolic murmur - GI/Abdominal GI/Abdominal exam: Present: normal bowel sounds, soft, no peritoneal signs. Absent: distended, tenderness - Extremities Exam Extremities exam: Present: pedal edema (pitting), warm, radial pulses palpable and symetrical. Absent: calf tenderness, cyanotic - Neurological Exam Neurological exam: Present: alert, no focal deficits. Absent: facial droop, speech deficit - Skin Skin exam: Present: dry, intact <Glenda,Garrett P - Last Filed: 09/12/16 18:14> Procedures/tests Complete & Pending: Procedures Performed prior 72 hours Category Date Time Status IR thoracentesis ultrasound [IR] Routine IR 09/10/16 11:50 Completed EV echocardiogram w enhance Routine Y 09/10/16 07:08 Completed Date of admission: 09/09/16 00:23 Primary care physician: Luis Garcia MD Consults: 09/09/16 01:16 Consult to Physical Therapy [CONS] Routine Comment: Evaluate, develop and implement POC 09/09/16 01:19 Consult to Cardiology [CONS] Routine Comment: Consulting Provider: Cardiology [facility] Reason for Consult: atrial flutter RVR. Instructed to report to ED during followup educational speech language clinician visit. Call Completed: No 09/09/16 09:18 Consult to Loading Shovel Oiler [CONS] Routine Reason for SW Consult: Return to ECF 09/09/16 10:33 Consult to Wound Care [CONS] Routine Reason for Consult: BLE scaling, blisters and openings. also has decubitus ulcer. H/o stasis dermatitis per pt. Please evaluate and treat. Call Completed: No 09/09/16 13:39 Consult to Occupational Therapy [CONS] Routine Comment: Evaluate, develop and implement POC 09/10/16 11:56 Consult to Interventional Radiology [CONS] Routine Consulting Provider: Radiology Interventional Cols Reason for Consult: thoracentesis Time Notified: 11:56 Call Completed: Yes Hospital course: Mr. Fierro is a 66 year old male - Time Spent with Patient Total time spent providing and/or coordinating discharge services: - Constitutional Vitals: Temp Pulse Resp BP Pulse Ox 98.2 F 118 16 105/73 98 09/12/16 11:35 09/12/16 11:35 09/12/16 16:26 09/12/16 11:35 09/12/16 16:26 - Attending Attestation I examined this patient and my medical decision-making was reviewed with the BOMB SQUAD COMMANDER/PA/Advanced Practice Nurse/Resident Physician. I agree with the documented findings, disposition and treatment plan as described except to the extent set forth below. Patient expressed wish to go to [facility] for further evaluation. I discussed at length with the patient regarding availability of the same equipments and specialist what [facility] has, that we have in this hospital. Patient still insists to go to [facility] for further management. Discussed with the patient that some of the expenses may not be covered by insurance regarding this transfer. Patient claims that he will be happy to take care of those experiences by himself if insurance does not cover it. At the time of dictation as patient does not have any issues with the care in this hospital. He prefers to transfer to [facility] for his 's satisfaction.
[2016-09-13] MEDS: Ipratropium/Albuterol Neb 3 ML IH SCH (03:18)
== END 2016-09-12 20:10 | disposition short-term general hospital (02) | DRG 291 ==
LOC: EMEROO 16:52 → 2NENU 09-09 00:23
PROVIDERS: ADMIT Family Medicine; ATTEND Internal Medicine

== ENCOUNTER 2017-02-09 14:27 | Inpatient (IN) ==
--- NOTE | 2017-02-09 15:11 | Emergency Department Note ---
Disposition Clinical Impression: Bradycardia, Weakness, Mild mental slowing Disposition: Admitted As Inpatient Condition: Fair Referrals: Luis Garcia MD [Primary Care Provider] - Forms: Work/School Release, ED Satisfaction Letter General Adult HPI - General Chief complaint: ED General Medical Stated complaint: bradycardia Time Seen by Provider: 02/09/17 14:40 Source: patient Limitations: no limitations Nursing Notes Reviewed: Yes Vital Signs Reviewed: Yes - History of Present Illness Pain Scale: 4 - Related Data Home Medications Medication Instructions Recorded Confirmed Escitalopram [Lexapro] 20 mg PO HS 05/20/16 02/09/17 Gabapentin [Neurontin] 100 mg PO TID 05/20/16 02/09/17 Trazodone HCl 150 mg PO HS PRN 05/20/16 02/09/17 clonazePAM [Klonopin] 1 mg PO BID PRN 05/20/16 02/09/17 Acetaminophen [Tylenol] 650 mg PO Q6HR PRN 09/09/16 02/09/17 Warfarin [Coumadin] 6 mg PO [id number] 12/12/16 02/09/17 Warfarin [Coumadin] 9 mg PO SUTH 12/12/16 02/09/17 Atorvastatin [Lipitor] 40 mg PO HS 02/09/17 02/09/17 Diltiazem CD (24hr) [Cardizem CD] 180 mg PO DAILY 02/09/17 02/09/17 Furosemide [Lasix] 20 mg PO DAILY 02/09/17 02/09/17 Metoprolol [Lopressor] 100 mg PO BID 02/09/17 02/09/17 Quetiapine Fumarate [Seroquel] 50 mg PO HS 02/09/17 02/09/17 Spironolactone [Aldactone] 12.5 mg PO DAILY 02/09/17 02/09/17 Previous Rx's Medication Instructions Recorded Aspirin 81 mg PO DAILY #30 tab.chew 05/22/16 Nitroglycerin 0.4 mg SL Q5MIN PRN #25 tab.subl 05/22/16 Amiodarone [Cordarone] 200 mg PO DAILY #30 tablet 08/20/16 Docusate [Colace] 100 mg PO BID #30 capsule 08/20/16 Allergies Allergy/AdvReac Type Severity Reaction Status Date / Time No Known Allergies Allergy Verified 09/09/16 09:34 Past Medical History - Past Medical History Medical history: Reports: COPD, coronary artery disease, DVT, diabetes, hyperlipidemia, hypertension, peripheral artery disease, venous stasis, other Surgical history: Reports: angioplasty/stent, coronary bypass (CABG), other Psychiatric history: Reports: bipolar, PTSD - Social History Smoking Status: Current every day smoker Smokeless Tobacco Status: No Alcohol use: Reports: none Drug use: Reports: none Physical Exam - General Limitations: no limitations General appearance: alert Course Vital Signs Temperature 97.3 F L 02/09/17 14:28 Pulse Rate 45 02/09/17 14:28 Respiratory Rate 18 02/09/17 14:28 Blood Pressure 126/77 02/09/17 14:28 O2 Sat by Pulse Oximetry 96 02/09/17 14:28 Temperature 97.3 F L 02/09/17 14:28 Pulse Rate 43 02/09/17 16:30 Respiratory Rate 16 02/09/17 16:30 Blood Pressure 189/72 02/09/17 16:30 O2 Sat by Pulse Oximetry 98 02/09/17 16:30 Oxygen Delivery Oxygen Delivery Room Air Medical Decision Making - MDM Narrative Medical decision making narrative: I examined this patient and my medical decision-making was reviewed with the HORSE RACING ANALYST/PA/Advanced Practice Nurse/Resident Physician. I agree with the documented findings, disposition and treatment plan as described except to the extent set forth below. Patient was sent over from outpatient office due to bradycardia apparently no symptoms here. Today was seen by Dr. Senior and myself, please see his evaluation I agree with his management plan supervised care the patient's stay. We did do an EKG looked through his medications see if we need to do any lab work and then reassess. 1445 hrs.: Patient in EKG performed, shows a sinus bradycardia, rate 46 QRS 93 QTC is 422 low voltage throughout possible Q waves in inferior leads compared this with an EKG that was done in August which then showed an atrial flutter with his rate was 113 since difficult to tell the same morphology or not but I do not see really acute changes except for rate. 1610 hrs.: Family arrives and they stated the patient seems slower than usual which she does speak slowly no true focal deficits no changes in medications that they are aware of, and get labs on him and a workup and he mainly needed admission. We will certainly give him some atropine the see if increasing his heart rate changes anything. He is stable at this time and they are in agreement with the plan. Chest X-Ray 02/09/17 16:24 IMPRESSION: No evidence of acute cardiopulmonary disease. D/ / Florin Brennan MD / Florin Brennan MD Interpreting Provider: Florin Brennan MD Head CT 02/09/17 16:24 IMPRESSION: No hemorrhage or mass. There is mild atrophy Trace paranasal sinus disease D/ / Morris Penny MD / Morris Penny MD Interpreting Provider: Morris Penny MD 1800 hrs.: Patient's heart rate went up 4-5 beats with the atropine and otherwise did not change labs are back were regular and bring him in for symptomatic bradycardia and alteration in mental status. Family is in agreement with this plan. [facility] 1840 hrs.: Dr. tavera except the patient to the hospital. - Lab Data Result diagrams: 02/09/17 16:38 02/09/17 16:38 Lab Results 02/09/17 02/09/17 02/09/17 Range/Units 16:38 16:38 16:38 WBC 8.5 (4.3-11.1) K/mcL RBC 6.19 H (4.19-5.50) M/mcL Hgb 14.6 (12.9-16.9) g/dL Hct 47.8 (37.5-50.1) % MCV 77.2 L (83.0-100.0) fL MCH 23.6 L (28.0-33.3) pg MCHC 30.5 L (31.6-35.5) g/dL RDW 22.5 H (11.5-14.5) % Plt Count 224 (140-400) K/mcL MPV 8.9 L (9.4-12.4) fL Immature Gran % 0.8 (0-4) % Seg Neutrophils % 54.4 % Lymphocytes % 33.1 % Monocytes % 7.3 % Eosinophils % 3.5 % Basophils % 0.9 % Neutrophils # 4.6 (1.6-8.9) K/mcL Lymphocytes # 2.8 (0.6-4.6) K/mcL Monocytes # 0.6 (0.0-1.3) K/mcL Eosinophils # 0.3 (0.0-0.6) K/mcL Basophils # 0.1 (0.0-0.2) K/mcL Sodium 139 (136-145) mEq/L Potassium 5.4 H (3.5-4.5) mEq/L Chloride 104 (98-109) mEq/L Carbon Dioxide 32 H (19-29) mEq/L BUN 17 (8-26) mg/dL Creatinine 1.06 (0.72-1.25) mg/dL Est GFR ( Amer) > 60 (> 60) Est GFR (Non-Af Amer) > 60 (> 60) BUN/Creatinine Ratio 16 (6-26) Glucose 94 (70-99) mg/dL Calculated Osmolality 289 (280-300) Calcium 9.7 (8.6-10.8) mg/dL Magnesium 2.0 (1.6-2.6) mg/dL Total Bilirubin 0.5 (0.2-1.2) mg/dL AST 29 (5-34) Units/L ALT 40 (0-55) Units/L Alkaline Phosphatase 126 (38-126) Units/L Troponin I (0-0.03) ng/mL Serum Total Protein 7.3 (6.0-8.3) g/dL Albumin 3.5 (3.5-5.0) g/dL Globulin 3.8 H (2.4-3.5) g/dL Albumin/Globulin Ratio 0.9 L (1.1-2.2) TSH 0.766 (0.350-4.840) mcIU/mL Ethyl Alcohol < 10 (0-10) mg/dL 02/09/17 Range/Units 16:38 WBC (4.3-11.1) K/mcL RBC (4.19-5.50) M/mcL Hgb (12.9-16.9) g/dL Hct (37.5-50.1) % MCV (83.0-100.0) fL MCH (28.0-33.3) pg MCHC (31.6-35.5) g/dL RDW (11.5-14.5) % Plt Count (140-400) K/mcL MPV (9.4-12.4) fL Immature Gran % (0-4) % Seg Neutrophils % % Lymphocytes % % Monocytes % % Eosinophils % % Basophils % % Neutrophils # (1.6-8.9) K/mcL Lymphocytes # (0.6-4.6) K/mcL Monocytes # (0.0-1.3) K/mcL Eosinophils # (0.0-0.6) K/mcL Basophils # (0.0-0.2) K/mcL Sodium (136-145) mEq/L Potassium (3.5-4.5) mEq/L Chloride (98-109) mEq/L Carbon Dioxide (19-29) mEq/L BUN (8-26) mg/dL Creatinine (0.72-1.25) mg/dL Est GFR ( Amer) (> 60) Est GFR (Non-Af Amer) (> 60) BUN/Creatinine Ratio (6-26) Glucose (70-99) mg/dL Calculated Osmolality (280-300) Calcium (8.6-10.8) mg/dL Magnesium (1.6-2.6) mg/dL Total Bilirubin (0.2-1.2) mg/dL AST (5-34) Units/L ALT (0-55) Units/L Alkaline Phosphatase (38-126) Units/L Troponin I 0.02 (0-0.03) ng/mL Serum Total Protein (6.0-8.3) g/dL Albumin (3.5-5.0) g/dL Globulin (2.4-3.5) g/dL Albumin/Globulin Ratio (1.1-2.2) TSH (0.350-4.840) mcIU/mL Ethyl Alcohol (0-10) mg/dL
[2017-02-09] MEDS ORDERED: *HR* Atropine Sulfate 1 MG/10 ML SYRINGE IVP STA (16:25)
[2017-02-09] MEDS ORDERED: 0.9 % Sodium Chloride 1,000 ML IVC SCH ×2 (16:30→19:39)
[2017-02-09 16:48] LABS: Basophils # 0.1 K/mcL (0.0-0.2); Basophils % 0.9 %; Eosinophils # 0.3 K/mcL (0.0-0.6); Eosinophils % 3.5 %; Hematocrit 47.8 % (37.5-50.1); Hemoglobin 14.6 g/dL (12.9-16.9); Immature Granulocytes % 0.8 % (0-4); Lymphocytes # 2.8 K/mcL (0.6-4.6); Lymphocytes % 33.1 %; Mean Corpuscular HGB Conc 30.5 g/dL (31.6-35.5); Mean Corpuscular Hemoglobin 23.6 pg (28.0-33.3); Mean Corpuscular Volume 77.2 fL (83.0-100.0); Mean Platelet Volume 8.9 fL (9.4-12.4); Monocytes # 0.6 K/mcL (0.0-1.3); Monocytes % 7.3 %; Neutrophils # 4.6 K/mcL (1.6-8.9); Platelet Count 224 K/mcL (140-400); Red Blood Count 6.19 M/mcL (4.19-5.50); Red Cell Distribution Width 22.5 % (11.5-14.5); Segmented Neutrophils % 54.4 %
[2017-02-09 16:58] LABS: Ethanol < 10 mg/dL (0-10)
[2017-02-09 16:59] LABS: Alanine Aminotransferase 40 Units/L (0-55); Albumin 3.5 g/dL (3.5-5.0); Albumin/Globulin Ratio 0.9 (1.1-2.2); Alkaline Phosphatase 126 Units/L (38-126); Aspartate Amino Transferase 29 Units/L (5-34); BUN/Creatinine Ratio 16 (6-26); Bilirubin,Total 0.5 mg/dL (0.2-1.2); Blood Urea Nitrogen 17 mg/dL (8-26); Calcium 9.7 mg/dL (8.6-10.8); Carbon Dioxide 32 mEq/L (19-29); Chloride 104 mEq/L (98-109); Globulin 3.8 g/dL (2.4-3.5); Glucose 94 mg/dL (70-99); Osmolality,Calculated 289 (280-300); Potassium 5.4 mEq/L (3.5-4.5); Sodium 139 mEq/L (136-145); Total Protein 7.3 g/dL (6.0-8.3); eGFR For African Americans > 60 (> 60); eGFR For Non-African Americans > 60 (> 60)
[2017-02-09 17:22] LABS: Thyroid Stimulating Hormone 0.766 mcIU/mL (0.350-4.840)
--- NOTE | 2017-02-09 17:25 | Emergency Department Note ---
Disposition Clinical Impression: Bradycardia, Weakness, Mild mental slowing Disposition: Admitted As Inpatient Condition: Good Referrals: Luis Garcia MD [Primary Care Provider] - Forms: ED Satisfaction Letter, Work/School Release General Adult HPI - General Chief complaint: ED General Medical Stated complaint: bradycardia Time Seen by Provider: 02/09/17 14:40 Source: patient Limitations: no limitations Nursing Notes Reviewed: Yes Vital Signs Reviewed: Yes - History of Present Illness HPI Narrative: Patient sent here from the care clinic for bradycardia. Patient had a CABG procedure in July. He has been experiencing significant fatigue and weakness since October. Patient has been seen by other providers but not had a workup. He is not sure when the bradycardia started. Patient is bradycardic in the mid 40s. Patient states that he feels fine otherwise. He says that he is asymptomatic however the weakness and fatigue he is describing is severe and he talks with a very slow rashmi. Patient is very forgetful even forgetting phone numbers that he feels he should know while in the department. Patient is forgetting words to help further describe what has been going on. Patient frustrated with his own memory loss. All this in the setting of no family at bedside to compare is very concerning for symptomatic bradycardia. Patient was attempted to walk but appears unsteady and very weak after several steps. Pain Scale: 4 - Related Data Home Medications Medication Instructions Recorded Confirmed Albuterol Sulfate [Albuterol 2 puff IH Q4H PRN 05/20/16 12/12/16 Inhaler] Escitalopram [Lexapro] 20 mg PO HS 05/20/16 12/12/16 Gabapentin [Neurontin] 100 mg PO TID 05/20/16 12/12/16 Ipratropium/Albuterol Neb [Duoneb] 3 ml IH Q4H PRN 05/20/16 12/12/16 Metformin HCl [Metformin HCl ER] 500 mg PO QPM 05/20/16 12/12/16 Quetiapine Fumarate [Seroquel] 50 - 100 mg PO HS 05/20/16 12/12/16 Trazodone HCl 150 - 300 mg PO HS PRN 05/20/16 12/12/16 clonazePAM [Klonopin] 1 mg PO BID PRN 05/20/16 12/12/16 Acetaminophen [Tylenol] 650 mg PO Q6HR PRN 09/09/16 12/12/16 Budesonide/Formoterol 80/4.5 2 puff IH BID 09/09/16 12/12/16 [Symbicort 80/4.5] Furosemide [Lasix] 40 mg PO BID 09/09/16 12/12/16 Guaifenesin [Mucinex] 600 mg PO BID PRN 09/09/16 12/12/16 Polyethylene Glycol 3350 [MiraLAX] 17 gm PO DAILY PRN 09/09/16 12/12/16 Potassium Chloride [K-Tab ER] 20 meq PO BID 09/09/16 12/12/16 Warfarin [Coumadin] 6 mg PO 1800 12/12/16 12/12/16 Warfarin [Coumadin] 9 mg PO 1800 12/12/16 12/12/16 Previous Rx's Medication Instructions Recorded Aspirin 81 mg PO DAILY #30 tab.chew 05/22/16 Atorvastatin [Lipitor] 80 mg PO HS #30 tablet 05/22/16 Clopidogrel [Plavix] 75 mg PO DAILY #30 tablet 05/22/16 Nitroglycerin 0.4 mg SL Q5MIN PRN #25 tab.subl 05/22/16 Amiodarone [Cordarone] 200 mg PO DAILY #30 tablet 08/20/16 Docusate [Colace] 100 mg PO BID #30 capsule 08/20/16 Metoprolol [Lopressor] 50 mg PO BID #60 tablet 08/20/16 OxyCODONE/APAP 5/325 [Percocet 1 each PO Q4HR PRN #30 tablet 08/20/16 5/325 MG] Allergies Allergy/AdvReac Type Severity Reaction Status Date / Time No Known Allergies Allergy Verified 09/09/16 09:34 Review of Systems: CONSTITUTIONAL: Weakness and fatigue ; No weight loss, fever, chills HEENT: Eyes: No visual changes. Ears, Nose, Throat: No hearing loss, difficulty talking or unable to swallow. SKIN: No rash or itching. CARDIOVASCULAR: No chest pain, chest pressure or chest discomfort. No palpitations or edema. RESPIRATORY: No shortness of breath, cough or sputum. GASTROINTESTINAL: No anorexia, nausea, vomiting or diarrhea. No abdominal pain or blood. GENITOURINARY: No burning on urination or hematuria. NEUROLOGICAL: No headache, dizziness, syncope, paralysis, ataxia, numbness or tingling in the extremities. No change in bowel or bladder control. MUSCULOSKELETAL: No muscle pain, back pain, joint pain or stiffness. Past Medical History - Past Medical History Medical history: Reports: COPD, coronary artery disease, DVT, diabetes, hyperlipidemia, hypertension, peripheral artery disease, venous stasis, other Surgical history: Reports: angioplasty/stent, coronary bypass (CABG), other Psychiatric history: Reports: bipolar, PTSD - Social History Smoking Status: Current every day smoker Smokeless Tobacco Status: No Alcohol use: Reports: none Drug use: Reports: none Physical Exam General appearance: NAD, conversant but very slow to speak and very slow mentally. Patient was ambulated around the emergency department with very significant slowness. No specific focal deficits. Eyes: anicteric sclerae, moist conjunctivae; PERRL HENT: Atraumatic; oropharynx clear with moist mucous membranes and no mucosal ulcerations Neck: Normal inspection; Trachea midline; FROM, supple Lungs: CTA, with normal respiratory effort and no intercostal retractions CV: RRR, no MRGs Abdomen: Soft, non-tender; no rebound or gaurding Extremities: Extremity wrapped with the [place] secondary to ulcers on the ventral aspect. Skin: Normal temperature; no rash, ulcers or lesions Psych: Appropriate mood and affect Neuro: alert and oriented to person, place and time - General Limitations: no limitations General appearance: alert Course Vital Signs Temperature 97.3 F L 02/09/17 14:28 Pulse Rate 45 02/09/17 14:28 Respiratory Rate 18 02/09/17 14:28 Blood Pressure 126/77 02/09/17 14:28 O2 Sat by Pulse Oximetry 96 02/09/17 14:28 Temperature 97.3 F L 02/09/17 14:28 Pulse Rate 43 02/09/17 16:30 Respiratory Rate 16 02/09/17 16:30 Blood Pressure 189/72 02/09/17 16:30 O2 Sat by Pulse Oximetry 98 02/09/17 16:30 Oxygen Delivery Oxygen Delivery Room Air Medical Decision Making - Lab Data Result diagrams: 02/09/17 16:38 02/09/17 16:38 Lab Results 02/09/17 02/09/17 02/09/17 Range/Units 16:38 16:38 16:38 WBC 8.5 (4.3-11.1) K/mcL RBC 6.19 H (4.19-5.50) M/mcL Hgb 14.6 (12.9-16.9) g/dL Hct 47.8 (37.5-50.1) % MCV 77.2 L (83.0-100.0) fL MCH 23.6 L (28.0-33.3) pg MCHC 30.5 L (31.6-35.5) g/dL RDW 22.5 H (11.5-14.5) % Plt Count 224 (140-400) K/mcL MPV 8.9 L (9.4-12.4) fL Immature Gran % 0.8 (0-4) % Seg Neutrophils % 54.4 % Lymphocytes % 33.1 % Monocytes % 7.3 % Eosinophils % 3.5 % Basophils % 0.9 % Neutrophils # 4.6 (1.6-8.9) K/mcL Lymphocytes # 2.8 (0.6-4.6) K/mcL Monocytes # 0.6 (0.0-1.3) K/mcL Eosinophils # 0.3 (0.0-0.6) K/mcL Basophils # 0.1 (0.0-0.2) K/mcL Sodium 139 (136-145) mEq/L Potassium 5.4 H (3.5-4.5) mEq/L Chloride 104 (98-109) mEq/L Carbon Dioxide 32 H (19-29) mEq/L BUN 17 (8-26) mg/dL Creatinine 1.06 (0.72-1.25) mg/dL Est GFR ( Amer) > 60 (> 60) Est GFR (Non-Af Amer) > 60 (> 60) BUN/Creatinine Ratio 16 (6-26) Glucose 94 (70-99) mg/dL Calculated Osmolality 289 (280-300) Calcium 9.7 (8.6-10.8) mg/dL Magnesium 2.0 (1.6-2.6) mg/dL Total Bilirubin 0.5 (0.2-1.2) mg/dL AST 29 (5-34) Units/L ALT 40 (0-55) Units/L Alkaline Phosphatase 126 (38-126) Units/L Troponin I (0-0.03) ng/mL Serum Total Protein 7.3 (6.0-8.3) g/dL Albumin 3.5 (3.5-5.0) g/dL Globulin 3.8 H (2.4-3.5) g/dL Albumin/Globulin Ratio 0.9 L (1.1-2.2) TSH 0.766 (0.350-4.840) mcIU/mL Ethyl Alcohol < 10 (0-10) mg/dL 02/09/17 Range/Units 16:38 WBC (4.3-11.1) K/mcL RBC (4.19-5.50) M/mcL Hgb (12.9-16.9) g/dL Hct (37.5-50.1) % MCV (83.0-100.0) fL MCH (28.0-33.3) pg MCHC (31.6-35.5) g/dL RDW (11.5-14.5) % Plt Count (140-400) K/mcL MPV (9.4-12.4) fL Immature Gran % (0-4) % Seg Neutrophils % % Lymphocytes % % Monocytes % % Eosinophils % % Basophils % % Neutrophils # (1.6-8.9) K/mcL Lymphocytes # (0.6-4.6) K/mcL Monocytes # (0.0-1.3) K/mcL Eosinophils # (0.0-0.6) K/mcL Basophils # (0.0-0.2) K/mcL Sodium (136-145) mEq/L Potassium (3.5-4.5) mEq/L Chloride (98-109) mEq/L Carbon Dioxide (19-29) mEq/L BUN (8-26) mg/dL Creatinine (0.72-1.25) mg/dL Est GFR ( Amer) (> 60) Est GFR (Non-Af Amer) (> 60) BUN/Creatinine Ratio (6-26) Glucose (70-99) mg/dL Calculated Osmolality (280-300) Calcium (8.6-10.8) mg/dL Magnesium (1.6-2.6) mg/dL Total Bilirubin (0.2-1.2) mg/dL AST (5-34) Units/L ALT (0-55) Units/L Alkaline Phosphatase (38-126) Units/L Troponin I 0.02 (0-0.03) ng/mL Serum Total Protein (6.0-8.3) g/dL Albumin (3.5-5.0) g/dL Globulin (2.4-3.5) g/dL Albumin/Globulin Ratio (1.1-2.2) TSH (0.350-4.840) mcIU/mL Ethyl Alcohol (0-10) mg/dL
[2017-02-09 18:59] LABS: Bilirubin,Urine Negative (Negative); Blood,Urine Small (Negative); Clarity,Urine Clear (Clear); Color,Urine Yellow (Yellow); Glucose,Urine (UA) Normal (Normal); Ketones,Urine Negative (Negative); Leukocyte Esterase,Urine Negative (Negative); Nitrite,Urine Negative (Negative); PH,Urine 6.5 pH Units (5.0-8.0); Protein,Urine 30 mg/dL (Neg-Trace); Specific Gravity,Urine 1.015 (1.010-1.025); Urobilinogen,Urine Normal (Normal)
[2017-02-09 19:01] LABS: Amphetamine Screen,Urine Negative ng/mL (Cutoff=1000); Barbiturate Screen,Urine Negative ng/mL (Cutoff=200); Benzodiazepines Screen,Urine Negative ng/mL (Cutoff=200); Cannabinoid Screen,Urine Negative ng/mL (Cutoff = 50); Cocaine Screen,Urine Negative ng/mL (Cutoff= 300); Opiate Screen,Urine Negative ng/mL (Cutoff=300); Phencyclidine Screen,Urine Negative ng/mL (Cutoff=25)
[2017-02-09 19:02] LABS: Bacteria,Urine None Seen per hpf (None-Few); Hyaline Casts,Urine None Seen per lpf (None-Few); Squamous Epithelial Cell,Urine Few per lpf (None-Few); WBC,Urine 0-3 per hpf (0-3)
[2017-02-09] MEDS ORDERED: Acetaminophen 325 MG TABLET PO PRN (19:38)
[2017-02-09] MEDS ORDERED: Ondansetron 4 MG/2 ML VIAL IVP PRN (19:38)
[2017-02-09] MEDS ORDERED: Naloxone 0.4 MG/ML INJ IVP PRN (19:38)
--- NOTE | 2017-02-09 19:41 | Internal Med History&Physical ---
Date of Encounter: 02/09/17 Time of Encounter: 20:28 Assessment and Plan (1) CHF (congestive heart failure) Current visit: Yes Status: Acute Patient had an echocardiogram recently which revealed preserved ejection fraction with diastolic dysfunction. Patient has been noncompliant with his Lasix due to unaffordability and side effects of polyuria. He also reports swelling in his legs. Exam reveals bilateral expiratory wheezing and pitting edema in his legs. Labs reviewed. EKG reveals sinus bradycardia. Patient will be admitted to inpatient status due to acute on chronic diastolic CHF. Expected to be in the hospital for at least overnight. Expected discharge disposition is to home. High risk due to risk of lethal arrhythmias and worsening respiratory failure which may required intubation and mechanical ventilation. Lasix 40 malignance IV twice a day. Daily weights. Strict input and output monitoring. Fluid restricted diet. Low -sodium diet. Qualifiers: Congestive heart failure type: diastolic Congestive heart failure chronicity: acute on chronic Qualified Code(s): I50.33 - Acute on chronic diastolic (congestive) heart failure (2) CAD (coronary artery disease) Current visit: Yes Status: Chronic Patient had STEMI in May 2016 and received 2 bare metal stents. He was found to have three-vessel disease and underwent 4 vessel CABG in July 2016. Continue aspirin, statin. Patient has side effects from beta blockers of bradycardia, fatigue and cognitive decline. For now, will reduce the dose of beta heidy. Will request cardiogenic consult for discussion regarding the benefits versus risks of continued beta heidy use in this patient with reduced quality of life and cognitive decline and fatigue. Qualifiers: Coronary Disease-Associated Artery/Lesion type: [place] artery [place] vs. transplanted heart: [place] heart Associated angina: without angina Qualified Code(s): I25.10 - Atherosclerotic heart disease of [place] coronary artery without angina pectoris (3) Leg edema Current visit: Yes Status: Chronic Check venous Dopplers Qualifiers: Laterality: bilateral Qualified Code(s): R60.0 - Localized edema (4) COPD (chronic obstructive pulmonary disease) Current visit: Yes Status: Chronic Patient has bilateral end expiratory wheezing which is likely due to fluid overload rather than COPD exacerbation. No indication for steroid therapy. Patient has already quit smoking. Breathing treatments when necessary and continue home long-acting bronchodilators. Qualifiers: COPD type: unspecified COPD Qualified Code(s): J44.9 - Chronic obstructive pulmonary disease, unspecified (5) Diabetes mellitus Current visit: Yes Status: Chronic Diabetic diet. Sliding scale insulin. He has coronary artery disease status post CABG and bare metal stents as a combination of diabetes. Qualifiers: Diabetes mellitus type: type 2 Diabetes mellitus complication status: with circulatory complication Diabetes mellitus complication detail: with other circulatory complications Diabetes mellitus intermediate insulin use: without terminal makeup operator use Qualified Code(s): E11.59 - Type 2 diabetes mellitus with other circulatory complications (6) HTN (hypertension) Current visit: Yes Status: Chronic Control blood pressure. Continue home medications. Qualifiers: Hypertension type: essential hypertension Qualified Code(s): I10 - Essential (primary) hypertension (7) Atrial fibrillation Current visit: Yes Status: Chronic Currently in sinus bradycardia. Patient underwent transesophageal echocardiogram, cardioversion and ablation at [facility] according to the history the patient provided. Reduce the dose of beta heidy due to bradycardia. Qualifiers: Atrial fibrillation type: paroxysmal Qualified Code(s): I48.0 - Paroxysmal atrial fibrillation (8) Morbid obesity with BMI of 40.0-44.9, adult Current visit: No Status: Chronic Internal Medicine - H&P: HPI Chief complaint: Fatigue and slow heart rate Admitted From: Emergency Dept Plans for Post Hospital Care: Home History of present illness: Mr. Fierro is a 66 year old male with a history of coronary artery disease status post STEMI in May 2016 with 2 bare metal stents, for was a CABG and July 2016 was subsequently developed atrial fibrillation with rapid ventricle response and was admitted for the same late July early August. He was transferred to [facility] where he underwent transesophageal echocardiogram and cardioversion with ablation. The patient went to his wound clinic today as he has been having a chronic wound at the site of vein graft retrieval. At the wound clinic, his heart rate was found to be in the 40s. Hence, the patient was sent to the emergency department. The patient reports that he has had chronic fatigue since his first heart attack in May. He also reports shortness of breath with exertion. He reports intermittent palpitations. He reports sleep disturbances. He reports being diagnosed with sleep apnea about 10 years ago but states that he is not on any treatment due to claustrophobia. He reports chronic swelling of both his legs. He denies any nausea, vomiting, diarrhea. He reports constipation but denies any abdominal pain. He denies any fever or chills. Denies any recent long journeys. He states that he has not been taking his Lasix over the past 2 weeks as he ran out of his scripts. Even prior to that, he has not been taking his Lasix every day as he was instructed to as the Lasix was causing him to urinate multiple times and he was too fatigued to do the same. Currently, he states that he is not able to effort his Lasix until his next paycheck comes on 02/27/2017. Past Med Surg Social Fam HX - Past Medical History Source: old records reviewed Medical history: COPD, coronary artery disease, DVT, diabetes, hyperlipidemia, hypertension, peripheral artery disease, venous stasis, other Psychiatric history: bipolar, PTSD - Past Surgical History Surgical History: angioplasty/stent, coronary bypass (CABG), other - Social History Smoking Status: Current every day smoker Smokeless Tobacco Status: No Alcohol use: none Drug use: none - Family History Mother Family Member Ethnicity: Non- Living Status: Hx Family Cardiac Disorders: Yes Hx Family Respiratory Disorders: No Hx Family Cancer: No Hx Family GI Disorders: No Hx Family Endocrine Disorder: Yes Hx Family Neuromuscular Disorders: No Hx Family Neurologic Disorders: No Hx Family HEENT Disorders: No Hx Family Autoimmune Disorders: No Father Adopted: No Family Member Ethnicity: Non- Living Status: Hx Family Cardiac Disorders: Yes Hx Family Respiratory Disorders: No Hx Family Cancer: No Hx Family GI Disorders: No Hx Family Endocrine Disorder: No Hx Family Neuromuscular Disorders: No Hx Family Neurologic Disorders: No Hx Family HEENT Disorders: No Hx Family Autoimmune Disorders: No Internal Medicine - H&P: Meds Escitalopram [Lexapro] 20 mg PO HS 05/20/16 [History] Gabapentin [Neurontin] 100 mg PO TID 05/20/16 [History] Trazodone HCl 150 mg PO HS PRN 05/20/16 [History] clonazePAM [Klonopin] 1 mg PO BID PRN 05/20/16 [History] Aspirin 81 mg PO DAILY #30 tab.chew 05/22/16 [Rx] Nitroglycerin 0.4 mg SL Q5MIN PRN #25 tab.subl 05/22/16 [Rx] Amiodarone [Cordarone] 200 mg PO DAILY #30 tablet 08/20/16 [Rx] Docusate [Colace] 100 mg PO BID #30 capsule 08/20/16 [Rx] Acetaminophen [Tylenol] 650 mg PO Q6HR PRN 09/09/16 [History] Warfarin [Coumadin] 6 mg PO [id number] 12/12/16 [History] Warfarin [Coumadin] 9 mg PO SUTH 12/12/16 [History] Atorvastatin [Lipitor] 40 mg PO HS 02/09/17 [History] Diltiazem CD (24hr) [Cardizem CD] 180 mg PO DAILY 02/09/17 [History] Furosemide [Lasix] 20 mg PO DAILY 02/09/17 [History] Metoprolol [Lopressor] 100 mg PO BID 02/09/17 [History] Quetiapine Fumarate [Seroquel] 50 mg PO HS 02/09/17 [History] Spironolactone [Aldactone] 12.5 mg PO DAILY 02/09/17 [History] Allergies No Known Allergies Allergy (Verified 09/09/16 09:34) All Systems PM: A 10-system review of systems was performed and is negative for pertinent findings except as documented above in the HPI. Review of systems: 10 systems have been reviewed and are negative except as mentioned in the history of present illness - Constitutional Vitals: Temp Pulse Resp BP Pulse Ox 97.3 F L 45 16 149/81 95 02/09/17 14:28 02/09/17 19:01 02/09/17 19:30 02/09/17 19:30 02/09/17 19:01 Exam: Gen.: Lying in bed. Mild distress. Eyes: Pupils equal, round and reactive to light. Extraocular muscles intact. ENT: Moist mucous membranes. No oropharyngeal erythema or discharge. Chest: Bilateral end expiratory wheezing present. Reduced air entry bilaterally. CVS: First and second heart sounds present. No murmurs, rubs or gallops. Bradycardia present. Midline CABG scar present. Bilateral 2+ pitting pedal edema present up to the thighs. Abdomen: Soft, nontender, obese. Bowel sounds present. No hepatosplenomegaly. Skin: No decubitus ulcers appreciated. Right lower extremity chronic venous stasis changes. Left lower extremity in a dressing. WRAPPER DIPPER: No focal neuro deficits present. Psychiatric: Alert, awake and oriented to time, place and person. Slow speech. Lymphatic system: No lymphadenopathy appreciated Internal Med - H&P Results - Labs CBC & Chem 7: 02/09/17 16:38 02/09/17 16:38 - EKG Data -: EKG Interpreted by Myself EKG shows normal: sinus rhythm Rate: bradycardia - Diagnostic Studies Chest x-ray Status: image reviewed by me (No acute infiltrate detected)
[2017-02-09] MEDS: Furosemide 40 MG/4 ML VIAL IVP SCH (21:53)
[2017-02-09] MEDS ORDERED: *HR* Heparin 5,000 UNIT/ML VIAL SQ SCH (22:00)
[2017-02-09] MEDS ORDERED: Nitroglycerin 0.4 MG TAB.SUBL SL PRN (22:21)
[2017-02-09] MEDS ORDERED: clonazePAM 1 MG TABLET PO PRN (22:21)
[2017-02-09] MEDS ORDERED: D5% in Water 1,000 ML IVC PRN (22:29)
[2017-02-09] MEDS ORDERED: *HR* Dextrose 50 % in Water (Syg) 50 ML SYRINGE IVP PRN (22:29)
[2017-02-09] MEDS ORDERED: Dextrose Gel 15 GM PO PRN ×2 (22:29)
[2017-02-09] MEDS ORDERED: *HR* Warfarin 3 MG TABLET PO SCH (22:30)
[2017-02-09] MEDS: Ipratropium/Albuterol Neb 3 ML IH PRN (23:28)
[2017-02-10] MEDS: Ipratropium/Albuterol Neb 3 ML IH PRN ×2 (04:40→08:32)
[2017-02-10 05:38] LABS: INR 2.3
[2017-02-10 05:51] LABS: BUN/Creatinine Ratio 19 (6-26); Blood Urea Nitrogen 18 mg/dL (8-26); Calcium 9.3 mg/dL (8.6-10.8); Carbon Dioxide 28 mEq/L (19-29); Chloride 104 mEq/L (98-109); Glucose 101 mg/dL (70-99); Osmolality,Calculated 294 (280-300); Potassium 4.4 mEq/L (3.5-4.5); Sodium 141 mEq/L (136-145); eGFR For African Americans > 60 (> 60); eGFR For Non-African Americans > 60 (> 60)
[2017-02-10] MEDS: Insulin LISPRO 300 UNITS/3 ML VIAL SQ SCH ×3 (08:13→15:22)
[2017-02-10] MEDS: *HR* Amiodarone 200 MG TABLET PO SCH (09:05)
[2017-02-10] MEDS: Gabapentin 100 MG CAPSULE PO SCH ×3 (09:05→20:20)
[2017-02-10] MEDS: Aspirin 81 MG TAB.CHEW PO SCH (09:05)
--- NOTE | 2017-02-10 11:13 | Electrocardiograph Report ---
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
[2017-02-10] MEDS: Furosemide 40 MG/4 ML VIAL IVP SCH ×2 (11:32→18:40)
--- NOTE | 2017-02-10 11:43 | Cardiology Consult Note ---
Date of Encounter: 02/10/17 Time of Encounter: 11:00 Assessment and Plan (1) Bradycardia Current Visit: Yes Status: Acute ECG upon arrival demonstrates SB HR 46 QRS 93 ms QT/QTc 464/422 ms Upon review, TTE in November demonstrates SB in the 40's. He is s/p aflutter ablation at [facility] in 2016--home medications include Amiodarone 200 mg daily (started post-op CABG 07/2016), Cardizem 180 mg daily, and metoprolol 100 mg BID. Asymptomatic--denies dizziness, fatigue, syncope, pre-syncope, or lightheadedness. Recommend discontinuation of CCB. Will continue to monitor tele, anticipate re- starting betablocker if HR continues to improve. Amiodarone started due to post op AF--no recurrent PAF noted, will further discuss and review with Dr. Swan. Telemetry review: avg HR=55 SB. No significant pause, AVB, or event noted. Will continue to follow and monitor telemetry. (2) CAD (coronary artery disease) Current Visit: Yes Status: Chronic Hx of STEMI 05/2016 with BMS to RCA; 4vCABG 07/[address] Madera. Denies chest pain or discomfort. Asa and statin. Will consider resuming betablocker if HR will allow. Qualifiers: Coronary Disease-Associated Artery/Lesion type: [place] artery [place] vs. transplanted heart: [place] heart Associated angina: without angina Qualified Code(s): I25.10 - Atherosclerotic heart disease of [place] coronary artery without angina pectoris (3) CHF (congestive heart failure) Current Visit: Yes Status: Chronic Mild volume overload upon exam; patient states LE is chronic. Recommend transition to oral lasix by discharge. Most recent TTE demonstrates preserved LVEF with moderate LVDD. Strict I&O's, Na/fluid restriction diet. Qualifiers: Congestive heart failure type: diastolic Congestive heart failure chronicity: chronic Qualified Code(s): I50.32 - Chronic diastolic (congestive ) heart failure Discussion w patient/family: The assessment and plan as outlined above was discussed with the patient and/or family members who expressed understanding and agreement. All questions were answered. Thank you for involving us in the care of your patient. Please call with any questions. The patient will be discussed and reviewed with Dr. Jaylon Swan; changes to be made accordingly. History of Present Illness Consult date: 02/10/17 Requesting physician: Terry Wells Consult reason: Bradycardia Chief complaint: LE wounds History of present illness: Mr. Fieror is a 66 year old male with PMHx significant for CAD s/p CABG, a flutter s/p ablation, HTN, hyperlipidemia, and chronic LE wounds presented to [facility] ED due to concerns of bradycardia at the wound care center. Asymptomatic with HR in the 40s. ECG upon arrival demonstrated SB, HR 44. Denies CP, SOB, palpitations, lightheadedness, dizziness, syncope. Has b/l LE edema with redness as well as hx of MRSA infection RLE- follows with wound care center. Prior CV testing: TTE 12/15/16: LVEF 60%, SB HR in the 40's, moderate LVDD, no significant valvular dysfunction JENI at [facility] in Aug 2016 prior to a flutter ablation- EF 35%. [facility] ([facility]) 08/12/16: 4v CABG (free GOSS-LAD, sequential SVG-D1 and OM1, SVG- PDA Cardiac catheterization 05/19/16: severe 3v CAD; ptient had successful PTCA/ Bare Metal Stent placement x2 in the mid RCA. (STEMI, recommend CT surgery after 4-6 weeks of DAPT) Past Med Surg Social Fam HX - Past Medical History Attestation: Yes The following information was validated with the patient. Source: patient, old records reviewed Medical history: COPD, coronary artery disease, DVT, diabetes, hyperlipidemia, hypertension, peripheral artery disease, venous stasis Psychiatric history: bipolar, PTSD - Past Surgical History Surgical History: angioplasty/stent, coronary bypass (CABG), other (aflutter ablation 2016) - Social History Smoking Status: Current every day smoker Packs per day: 0.5-1ppd Smokeless Tobacco Status: No Alcohol use: none Drug use: none - Family History Mother Family Member Ethnicity: Non- Living Status: Cause of : 88 Hx Family Cardiac Disorders: Yes Hx Family Respiratory Disorders: No Hx Family Cancer: No Hx Family GI Disorders: No Hx Family Endocrine Disorder: Yes Hx Family Neuromuscular Disorders: No Hx Family Neurologic Disorders: No Hx Family HEENT Disorders: No Hx Family Autoimmune Disorders: No Father Adopted: No Family Member Ethnicity: Non- Living Status: Hx Family Cardiac Disorders: Yes Hx Family Respiratory Disorders: No Hx Family Cancer: No Hx Family GI Disorders: No Hx Family Endocrine Disorder: No Hx Family Neuromuscular Disorders: No Hx Family Neurologic Disorders: No Hx Family HEENT Disorders: No Hx Family Autoimmune Disorders: No Medications and Allergies Escitalopram [Lexapro] 20 mg PO HS 05/20/16 [History] Gabapentin [Neurontin] 100 mg PO TID 05/20/16 [History] Trazodone HCl 150 mg PO HS PRN 05/20/16 [History] clonazePAM [Klonopin] 1 mg PO BID PRN 05/20/16 [History] Aspirin 81 mg PO DAILY #30 tab.chew 05/22/16 [Rx] Nitroglycerin 0.4 mg SL Q5MIN PRN #25 tab.subl 05/22/16 [Rx] Amiodarone [Cordarone] 200 mg PO DAILY #30 tablet 08/20/16 [Rx] Docusate [Colace] 100 mg PO BID #30 capsule 08/20/16 [Rx] Acetaminophen [Tylenol] 650 mg PO Q6HR PRN 09/09/16 [History] Warfarin [Coumadin] 6 mg PO MOTUWEFRSA 12/12/16 [History] Warfarin [Coumadin] 9 mg PO SUTH 12/12/16 [History] Atorvastatin [Lipitor] 40 mg PO HS 02/09/17 [History] Diltiazem CD (24hr) [Cardizem CD] 180 mg PO DAILY 02/09/17 [History] Furosemide [Lasix] 20 mg PO DAILY 02/09/17 [History] Metoprolol [Lopressor] 100 mg PO BID 02/09/17 [History] Quetiapine Fumarate [Seroquel] 50 mg PO HS 02/09/17 [History] Spironolactone [Aldactone] 12.5 mg PO DAILY 02/09/17 [History] Allergies No Known Allergies Allergy (Verified 09/09/16 09:34) All Systems Review: A 10-system review of systems was performed and is negative for pertinent findings except as documented above in the HPI. - Cardiovascular Cardiovascular: as per HPI Physical Examination Vital Signs, Last 4 Hours Temp Pulse Resp BP Pulse Ox 02/10/17 09:00 97.9 F 58 18 120/60 90 02/10/17 08:33 19 94 General: Conversant, No Apparent Distress HEENT: Atraumatic, Normocephaly, Mucus Membranes Moist Cardiac: Reg Rate and Rhythm, Normal S1 and S2 Lungs: Normal Breath Sounds Neuro: Alert and responsive Abdomen: Soft Skin: No rashes noted on visualized skin Musculoskeletal: No Chest Wall Tenderness Extremities: Other (BLE edema and redness) Results 02/09/17 16:38 02/10/17 05:20 Lab Results 02/10/17 02/10/17 05:20 05:20 INR 2.3 Sodium 141 Potassium 4.4 D Chloride 104 Carbon Dioxide 28 BUN 18 Creatinine 0.97 Glucose 101 H Calcium 9.3 Active Medications Acetaminophen (Tylenol) 650 mg PO Q6HR PRN PRN Reason: Mild Pain (1-3) Stop: 08/11/17 19:39 Albuterol/Ipratropium (Duoneb) 3 ml IH [id number] PRN; Protocol PRN Reason: Shortness Of Breath/Wheezing Stop: 08/11/17 20:29 Last Admin: 02/10/17 08:32 Dose: 3 ml Amiodarone HCl (Cordarone) 200 mg PO DAILY MARLA Stop: 08/12/17 09:01 Last Admin: 02/10/17 09:05 Dose: 200 mg Aspirin (Aspirin) 81 mg PO DAILY MARLA Stop: 08/12/17 09:01 Last Admin: 02/10/17 09:05 Dose: 81 mg Atorvastatin Calcium (Lipitor) 40 mg PO HS MARLA Stop: 08/11/17 22:31 Last Admin: 02/09/17 23:08 Dose: 40 mg Clonazepam (Klonopin) 1 mg PO BID PRN PRN Reason: Anxiety Stop: 08/11/17 22:22 Last Admin: 02/09/17 23:07 Dose: 1 mg Dextrose/Water (Dextrose 50% (Syg)) 25 ml IVP AD PRN PRN Reason: Hypoglycemia Stop: 08/11/17 22:30 Escitalopram Oxalate (Lexapro) 20 mg PO HS MARLA Stop: 08/11/17 22:31 Last Admin: 02/09/17 23:07 Dose: 20 mg Furosemide (Lasix) 40 mg IVP BIDDIURETIC MARLA Stop: 08/11/17 21:01 Last Admin: 02/10/17 11:32 Dose: 40 mg Gabapentin (Neurontin) 100 mg PO TID MARLA Stop: 08/12/17 09:01 Last Admin: 02/10/17 09:05 Dose: 100 mg Stop: 08/11/17 22:30 Insulin Human Lispro (Humalog) 0 units SQ HS [facility] PRN Reason: Protocol Stop: 08/12/17 21:01 Insulin Human Lispro (Humalog) 0 units SQ TIDAC [facility] PRN Reason: Protocol Stop: 08/12/17 07:31 Last Admin: 02/10/17 12:34 Dose: Not Given Naloxone HCl (Narcan) 0.4 mg IVP Q2MIN PRN PRN Reason: Opioid Reversal Stop: 08/11/17 19:39 Nitroglycerin (Nitroglycerin) 0.4 mg SL Q5MIN PRN PRN Reason: Chest Pain Stop: 08/11/17 22:22 Ondansetron HCl (Zofran) 4 mg IVP Q8HR PRN PRN Reason: Nausea And Vomiting Stop: 08/11/17 19:39 Quetiapine Fumarate (Seroquel) 50 mg PO HS [facility] Stop: 08/11/17 22:31 Last Admin: 02/09/17 23:07 Dose: 50 mg Senna/Docusate Sodium (Senna Plus) 2 each PO BID [facility] PRN Reason: Protocol Stop: 08/12/17 12:01 Warfarin Sodium (Coumadin) 6 mg PO MOTUWEFRSA [facility] Stop: 08/12/17 18:01 Warfarin Sodium (Coumadin) 9 mg PO SUTH [facility] Stop: 08/14/17 18:01 - Imaging and Cardiology Chest Xray: report reviewed Echo: report reviewed Cardiac cath: report reviewed Other Results: 12 hour tele: avg HR=55 SB. No significant pause, block, or event noted. - EKG Interpretation EKG results cardiology: personally reviewed Consult Discharge Plan - Plan Referrals: Coumadin, Clinic [Other] - 02/18/17 4:00 pm WOUND,CARE [Other] - 02/20/17 1:30 pm
--- NOTE | 2017-02-10 11:55 | Internal Med Progress Note ---
Date of Encounter: 02/10/17 Time of Encounter: 11:55 - Assessment and plan (1) HTN (hypertension) Current Visit: Yes Status: Chronic Assessment and plan: Controlled, continue home meds Qualifiers: Hypertension type: essential hypertension Qualified Code(s): I10 - Essential (primary) hypertension (2) HLD (hyperlipidemia) Current Visit: Yes Status: Chronic Assessment and plan: Continue home meds Qualifiers: Hyperlipidemia type: other hyperlipidemia Qualified Code(s): E78.4 - Other hyperlipidemia (3) Diabetes mellitus Current Visit: Yes Status: Chronic Assessment and plan: FSACHS Insulin, continue current regimen ADA diet Qualifiers: Diabetes mellitus type: type 2 Diabetes mellitus complication status: with circulatory complication Diabetes mellitus complication detail: with other circulatory complications Diabetes mellitus 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 Qualified Code(s): E11.59 - Type 2 diabetes mellitus with other circulatory complications (4) PAD (peripheral artery disease) Current Visit: Yes Status: Chronic Assessment and plan: Stable (5) COPD (chronic obstructive pulmonary disease) Current Visit: Yes Status: Chronic Assessment and plan: No wheexing at this time, continue duonebs prn Qualifiers: COPD type: unspecified COPD Qualified Code(s): J44.9 - Chronic obstructive pulmonary disease, unspecified (6) CAD (coronary artery disease) Current Visit: Yes Status: Chronic Qualifiers: Coronary Disease-Associated Artery/Lesion type: [place] artery [place] vs. transplanted heart: [place] heart Associated angina: without angina Qualified Code(s): I25.10 - Atherosclerotic heart disease of [place] coronary artery without angina pectoris (7) CHF (congestive heart failure) Current Visit: Yes Status: Acute Assessment and plan: Continue diuresis Most recent TTE demonstrates preserved LVEF with moderate LVDD. Strict I&O's, Na/fluid restriction diet. Qualifiers: Congestive heart failure type: diastolic Congestive heart failure chronicity: acute on chronic Qualified Code(s): I50.33 - Acute on chronic diastolic (congestive) heart failure (8) Bradycardia Current Visit: Yes Status: Acute Assessment and plan: HR improving with decreased BB dose Nor symptomatic BP WNL NO indication for pacing at this time, cardiology following (9) Atrial fibrillation Current Visit: Yes Status: Chronic Assessment and plan: Chronic, stable, on warfarin, continue same Qualifiers: Atrial fibrillation type: paroxysmal Qualified Code(s): I48.0 - Paroxysmal atrial fibrillation (10) Morbid obesity with BMI of 40.0-44.9, adult Current Visit: Yes Status: Chronic - Subjective Interval history: 66 M with PMH of Afib s/p ablation in 08/2016, CAD s/p STEMIU with BMS to RCA, CABG, CHFpEF He is admitted and being managed for CHFE and bradycardia Cardiology is following Patient complains of constipation - Constitutional Vitals: Temp Pulse Resp BP Pulse Ox 97.6 F 62 18 128/74 94 02/10/17 11:34 02/10/17 11:34 02/10/17 11:34 02/10/17 11:34 02/10/17 11:34 General appearance: Present: A&O X 3, pleasant, no acute distress, obese - Head Head exam: Present: atraumatic, normocephalic - Eye Eye exam: Present: PERRL, conjuntiva pink, sclera anicteric Pupils: Present: PERRL - Neck Neck exam general surgery: Present: supple, trachea midline. Absent: lymphadenopathy - Respiratory Respiratory exam: Present: CTAB. Absent: accessory muscle use, rales, rhonchi, wheezes - Cardiovascular Cardiovascular exam: Present: bradycardia, irregular rhythm, +S1, +S2. Absent: diastolic murmur, gallop, rubs, systolic murmur - GI/Abdominal GI/Abdominal exam: Present: normal bowel sounds, soft, no peritoneal signs. Absent: distended, tenderness - Extremities Exam Extremities exam: Present: pedal edema, warm, radial pulses palpable and symetrical. Absent: calf tenderness, cyanotic - Neurological Exam Neurological exam: Present: alert, CN II-XII intact, oriented X3, no focal deficits. Absent: pronater drift, facial droop, speech deficit - Skin Skin exam: Present: dry, intact Internal Medicine: Result - Labs CBC & Chem 7: 02/09/17 16:38 02/10/17 05:20 Labs: BMP 02/10/17 05:20 Sodium 141 Potassium 4.4 D Chloride 104 Carbon Dioxide 28 BUN 18 Creatinine 0.97 Glucose 101 H Calcium 9.3 - ABG Interpretation ABG results: PT/INR, D-dimer PT 25.0 Seconds (9.4-12.1) H 02/10/17 05:20 Consult Discharge Plan - Plan Referrals: Coumadin, Clinic [Other] - 02/18/17 4:00 pm WOUND,CARE [Other] - 02/20/17 1:30 pm
[2017-02-10] MEDS: Sennosides/Docusate Sodium TABLET PO SCH ×2 (12:36→20:20)
[2017-02-10] MEDS: *HR* Warfarin 3 MG TABLET PO SCH (18:40)
[2017-02-10] MEDS ORDERED: Insulin LISPRO 300 UNITS/3 ML VIAL SQ SCH (21:00)
[2017-02-11 04:48] LABS: INR 1.7
[2017-02-11 04:51] LABS: Basophils # 0.1 K/mcL (0.0-0.2); Basophils % 0.9 %; Eosinophils # 0.3 K/mcL (0.0-0.6); Eosinophils % 3.8 %; Hematocrit 48.2 % (37.5-50.1); Immature Granulocytes % 0.7 % (0-4); Lymphocytes # 2.2 K/mcL (0.6-4.6); Lymphocytes % 25.2 %; Mean Corpuscular HGB Conc 31.1 g/dL (31.6-35.5); Mean Corpuscular Hemoglobin 23.8 pg (28.0-33.3); Mean Corpuscular Volume 76.5 fL (83.0-100.0); Monocytes # 0.7 K/mcL (0.0-1.3); Monocytes % 7.9 %; Neutrophils # 5.3 K/mcL (1.6-8.9); Platelet Count 247 K/mcL (140-400); Red Cell Distribution Width 22.5 % (11.5-14.5); Segmented Neutrophils % 61.5 %
[2017-02-11 04:57] LABS: BUN/Creatinine Ratio 19 (6-26); Blood Urea Nitrogen 20 mg/dL (8-26); Calcium 9.6 mg/dL (8.6-10.8); Carbon Dioxide 34 mEq/L (19-29); Chloride 100 mEq/L (98-109); Glucose 103 mg/dL (70-99); Osmolality,Calculated 293 (280-300); Potassium 4.4 mEq/L (3.5-4.5); Sodium 140 mEq/L (136-145); eGFR For African Americans > 60 (> 60); eGFR For Non-African Americans > 60 (> 60)
[2017-02-11] MEDS: Aspirin 81 MG TAB.CHEW PO SCH (08:51)
[2017-02-11] MEDS: Sennosides/Docusate Sodium TABLET PO SCH (08:51)
[2017-02-11] MEDS: Insulin LISPRO 300 UNITS/3 ML VIAL SQ SCH ×3 (08:51→18:17)
[2017-02-11] MEDS: Furosemide 40 MG/4 ML VIAL IVP SCH ×2 (08:51→18:17)
[2017-02-11] MEDS: *HR* Amiodarone 200 MG TABLET PO SCH (08:51)
[2017-02-11] MEDS: Gabapentin 100 MG CAPSULE PO SCH ×2 (08:51→16:10)
--- NOTE | 2017-02-11 10:28 | Cardiology Progress Note ---
Date of Encounter: 02/11/17 Time of Encounter: 09:45 Assessment and Plan (1) Bradycardia Current Visit: Yes Status: Acute ECG upon arrival demonstrates SB HR 46 QRS 93 ms QT/QTc 464/422 ms Upon review, TTE in November demonstrates SB in the 40's. He is s/p aflutter ablation at [facility] in 2016--home medications include Amiodarone 200 mg daily (started post-op CABG 07/2016), Cardizem 180 mg daily, and metoprolol 100 mg BID. Asymptomatic--denies dizziness, fatigue, syncope, pre-syncope, or lightheadedness. Recommend discontinuation of CCB (cardizem). Will start Metoprolol 25 mg BID. Amiodarone started due to post op AF--no recurrent PAF noted, continuation can be determined in the outpatient setting. Anticoagulated on Coumadin for hx of PAF, aflutter (ACMS). Telemetry review: avg HR=66 SR. No significant pause, AVB, or event noted. Cardiology will sign-off, please re-consult as needed. Will coordinate appt in the outpatient setting. (2) CAD (coronary artery disease) Current Visit: Yes Status: Chronic Hx of STEMI 05/2016 with BMS to RCA; 4vCABG 07/[address] Madera. Denies chest pain or discomfort. Asa and statin. Resume betablocker today. Qualifiers: Coronary Disease-Associated Artery/Lesion type: [place] artery [place] vs. transplanted heart: [place] heart Associated angina: without angina Qualified Code(s): I25.10 - Atherosclerotic heart disease of [place] coronary artery without angina pectoris (3) CHF (congestive heart failure) Current Visit: Yes Status: Acute Mild volume overload upon exam; patient states LE is chronic. Recommend transition to oral lasix by discharge. Most recent TTE demonstrates preserved LVEF with moderate LVDD. Strict I&O's, Na/fluid restriction diet. Qualifiers: Congestive heart failure type: diastolic Congestive heart failure chronicity: acute on chronic Qualified Code(s): I50.33 - Acute on chronic diastolic (congestive) heart failure Discussion w patient/family: The assessment and plan as outlined above was discussed with the patient and/or family members who expressed understanding and agreement. All questions were answered. Thank you for involving us in the care of your patient. Please call with any questions. The patient was discussed and reviewed with Dr. Jaylon Swan; Cardiology will sign-off, please call with questions. Subjective Principal diagnosis: Bradycardia Interval history: Seen and examined. Mr. Fierro has no complaints this morning upon exam. Objective Vital Signs, Last 4 Hours Temp Pulse Resp BP Pulse Ox 02/11/17 09:00 67 94 02/11/17 07:43 98.2 F 84 18 146/82 93 General: Conversant, No Apparent Distress HEENT: Atraumatic, Normocephaly, Mucus Membranes Moist Cardiac: Reg Rate and Rhythm, Normal S1 and S2 Lungs: Normal Breath Sounds Neuro: Alert and responsive Abdomen: Soft Musculoskeletal: No Chest Wall Tenderness Extremities: Other (BLE edema (chronic) /redness) Results 02/11/17 04:19 02/11/17 04:19 Lab Results 02/11/17 02/11/17 02/11/17 04:19 04:19 04:19 WBC 8.7 Hgb 15.0 Hct 48.2 Plt Count 247 INR 1.7 Sodium 140 Potassium 4.4 Chloride 100 Carbon Dioxide 34 H BUN 20 Creatinine 1.06 Glucose 103 H Calcium 9.6 Active Medications Acetaminophen (Tylenol) 650 mg PO Q6HR PRN PRN Reason: Mild Pain (1-3) Stop: 08/11/17 19:39 Albuterol/Ipratropium (Duoneb) 3 ml IH [id number] PRN; Protocol PRN Reason: Shortness Of Breath/Wheezing Stop: 08/11/17 20:29 Last Admin: 02/10/17 08:32 Dose: 3 ml Amiodarone HCl (Cordarone) 200 mg PO DAILY MARLA Stop: 08/12/17 09:01 Last Admin: 02/11/17 08:51 Dose: 200 mg Aspirin (Aspirin) 81 mg PO DAILY [facility]LA Stop: 08/12/17 09:01 Last Admin: 02/11/17 08:51 Dose: 81 mg Atorvastatin Calcium (Lipitor) 40 mg PO HS [facility]LA Stop: 08/11/17 22:31 Last Admin: 02/10/17 20:20 Dose: 40 mg Clonazepam (Klonopin) 1 mg PO BID PRN PRN Reason: Anxiety Stop: 08/11/17 22:22 Last Admin: 02/09/17 23:07 Dose: 1 mg Dextrose/Water (Dextrose 50% (Syg)) 25 ml IVP AD PRN PRN Reason: Hypoglycemia Stop: 08/11/17 22:30 Escitalopram Oxalate (Lexapro) 20 mg PO HS [facility] Stop: 08/11/17 22:31 Last Admin: 02/10/17 20:20 Dose: 20 mg Furosemide (Lasix) 40 mg IVP BIDDIURETIC MARLA Stop: 08/11/17 21:01 Last Admin: 02/11/17 08:51 Dose: 40 mg Gabapentin (Neurontin) 100 mg PO TID [facility] Stop: 08/12/17 09:01 Last Admin: 02/11/17 08:51 Dose: 100 mg Glucagon (Glucagen) 1 mg IM ONCE PRN PRN Reason: Hypoglycemia Stop: 08/11/17 22:30 Glucose (Gluctose) 15 gm PO ONCE PRN PRN Reason: Hypoglycemia Stop: 08/11/17 22:30 Glucose (Gluctose) 30 gm PO ONCE PRN PRN Reason: Hypoglycemia Stop: 08/11/17 22:30 Dextrose (Dextrose 5%) 1,000 mls @ 100 mls/hr IVC .Q10H PRN PRN Reason: HYPOGLYCEMIA Stop: 08/11/17 22:30 Insulin Human Lispro (Humalog) 0 units SQ HS [facility] PRN Reason: Protocol Stop: 08/12/17 21:01 Last Admin: 02/10/17 21:00 Dose: Not Given Insulin Human Lispro (Humalog) 0 units SQ TIDAC [facility] PRN Reason: Protocol Stop: 08/12/17 07:31 Last Admin: 02/11/17 08:51 Dose: Not Given Metoprolol Tartrate (Lopressor) 25 mg PO BID [facility] Stop: 08/13/17 10:31 Naloxone HCl (Narcan) 0.4 mg IVP Q2MIN PRN PRN Reason: Opioid Reversal Stop: 08/11/17 19:39 Nitroglycerin (Nitroglycerin) 0.4 mg SL Q5MIN PRN PRN Reason: Chest Pain Stop: 08/11/17 22:22 Ondansetron HCl (Zofran) 4 mg IVP Q8HR PRN PRN Reason: Nausea And Vomiting Stop: 08/11/17 19:39 Quetiapine Fumarate (Seroquel) 50 mg PO HS [facility] Stop: 08/11/17 22:31 Last Admin: 02/10/17 20:20 Dose: 50 mg Senna/Docusate Sodium (Senna Plus) 2 each PO BID [facility] PRN Reason: Protocol Stop: 08/12/17 12:01 Last Admin: 02/11/17 08:51 Dose: 2 each Warfarin Sodium (Coumadin) 6 mg PO MOTUWEFRSA [facility] Stop: 08/12/17 18:01 Last Admin: 02/10/17 18:40 Dose: 6 mg Warfarin Sodium (Coumadin) 9 mg PO SUTH [facility] Stop: 08/14/17 18:01 - Imaging and Cardiology Echo: report reviewed Cardiac cath: report reviewed Other Results: 12 hour tele: avg HR=66 SR. No significant pause or event noted. - EKG Interpretation EKG results cardiology: personally reviewed Consult Discharge Plan - Plan Referrals: Coumadin, Clinic [Other] - 02/18/17 4:00 pm WOUND,CARE [Other] - 02/20/17 1:30 pm Luis Garcia MD [Primary Care Provider] - 02/19/17 3:15 pm Catarina Swan MD [Partnered Physician] - 03/11/17 1:45 pm
[2017-02-11 11:40] VITALS: BP 129/76
--- NOTE | 2017-02-11 12:20 | Discharge Summary ---
Date of Encounter: 02/11/17 Time of Encounter: 12:20 - Discharge Diagnosis (1) HTN (hypertension) Priority: Secondary Status: Chronic Qualifiers: Hypertension type: essential hypertension Qualified Code(s): I10 - Essential (primary) hypertension (2) HLD (hyperlipidemia) Priority: Secondary Status: Chronic Qualifiers: Hyperlipidemia type: other hyperlipidemia Qualified Code(s): E78.4 - Other hyperlipidemia (3) Diabetes mellitus Priority: Secondary Status: Chronic Qualifiers: Diabetes mellitus type: type 2 Diabetes mellitus complication status: with circulatory complication Diabetes mellitus complication detail: with other circulatory complications Diabetes mellitus terminal supervisor insulin use: without terminal supervisor use Qualified Code(s): E11.59 - Type 2 diabetes mellitus with other circulatory complications (4) PAD (peripheral artery disease) Priority: Secondary Status: Chronic (5) COPD (chronic obstructive pulmonary disease) Priority: Secondary Status: Chronic Qualifiers: COPD type: unspecified COPD Qualified Code(s): J44.9 - Chronic obstructive pulmonary disease, unspecified (6) CAD (coronary artery disease) Priority: Secondary Status: Chronic Qualifiers: Coronary Disease-Associated Artery/Lesion type: [place] artery [place] vs. transplanted heart: [place] heart Associated angina: without angina Qualified Code(s): I25.10 - Atherosclerotic heart disease of [place] coronary artery without angina pectoris (7) CHF (congestive heart failure) Priority: Primary Status: Acute Qualifiers: Congestive heart failure type: diastolic Congestive heart failure chronicity: acute on chronic Qualified Code(s): I50.33 - Acute on chronic diastolic (congestive) heart failure (8) Bradycardia Priority: Primary Status: Resolved (9) Atrial fibrillation Priority: Secondary Status: Chronic Qualifiers: Atrial fibrillation type: paroxysmal Qualified Code(s): I48.0 - Paroxysmal atrial fibrillation (10) Morbid obesity with BMI of 40.0-44.9, adult Priority: Secondary Status: Chronic - Discharge Medications Prescriptions: Metoprolol [Lopressor] 25 mg PO BID #60 tablet Sennosides/Docusate Sodium [Senna Plus] 2 each PO BID PRN #30 tablet PRN Reason: Constipation Home Medications: Escitalopram [Lexapro] 20 mg PO HS 05/20/16 [History] Gabapentin [Neurontin] 100 mg PO TID 05/20/16 [History] Trazodone HCl 150 mg PO HS PRN 05/20/16 [History] clonazePAM [Klonopin] 1 mg PO BID PRN 05/20/16 [History] Aspirin 81 mg PO DAILY #30 tab.chew 05/22/16 [Rx] Nitroglycerin 0.4 mg SL Q5MIN PRN #25 tab.subl 05/22/16 [Rx] Amiodarone [Cordarone] 200 mg PO DAILY #30 tablet 08/20/16 [Rx] Acetaminophen [Tylenol] 650 mg PO Q6HR PRN 09/09/16 [History] Warfarin [Coumadin] 6 mg PO MOTUWEFRSA 12/12/16 [History] Warfarin [Coumadin] 9 mg PO SUTH 12/12/16 [History] Atorvastatin [Lipitor] 40 mg PO HS 02/09/17 [History] Quetiapine Fumarate [Seroquel] 50 mg PO HS 02/09/17 [History] Spironolactone [Aldactone] 12.5 mg PO DAILY 02/09/17 [History] Furosemide [Lasix] 40 mg PO DAILY #60 02/11/17 [Rx] Metoprolol [Lopressor] 25 mg PO BID #60 tablet 02/11/17 [Rx] Sennosides/Docusate Sodium [Senna Plus] 2 each PO BID PRN #30 tablet 02/11/17 [ Rx] Allergies/Adverse Reactions: Allergies No Known Allergies Allergy (Verified 09/09/16 09:34) Date of admission: 02/09/17 22:49 Primary care physician: Luis Garcia MD Discharging clinician: Terry Wells Anticipated date of discharge: 02/11/17 - Patient Status Disposition: Home, Self-Care Condition: Fair Functional capacity at discharge: independent ambulation Overall status at discharge: patient is progressing back to baseline - Discharge Instructions Follow Up With: Coumadin, Clinic [Other] - 02/18/17 4:00 pm WOUND,CARE [Other] - 02/20/17 1:30 pm Luis Garcia MD [Primary Care Provider] - 02/19/17 3:15 pm Catarina Swan MD [Partnered Physician] - 03/11/17 1:45 pm - Diet and Activity Activity: resume usual activities as tolerated Diet: diabetic diet, low fat, low cholesterol, low salt diet Interval History: Mr. Fierro is a 66 year old male with a history of coronary artery disease status post STEMI in May 2016 with 2 bare metal stents, for was a CABG and July 2016 was subsequently developed atrial fibrillation with rapid ventricle response and was admitted for the same late July early August. He was transferred to [facility] where he underwent transesophageal echocardiogram and cardioversion with ablation. The patient went to his wound clinic today as he has been having a chronic wound at the site of vein graft retrieval. At the wound clinic, his heart rate was found to be in the 40s. Hence, the patient was sent to the emergency department. He also reports shortness of breath with exertion. He reports intermittent palpitations. He reports sleep disturbances. He reports being diagnosed with sleep apnea about 10 years ago but states that he is not on any treatment due to claustrophobia. He reports chronic swelling of both his legs. He denies any nausea, vomiting, diarrhea. He reports constipation but denies any abdominal pain. He denies any fever or chills. Denies any recent long journeys. Endorsed non-compliance with lasix due to finances Hospital course: Patient was admitted and started on IV diuresis, CCB and BB were held, cardiology was consulted for recommendations Patient is seen at bedside this morning His telemetry review shows improved HR with amiodarone, he was restarted on his Metoprolol at 25mg BID . He was adequately diuressed, with transition of lasix to 40mg po daily Patient is educated about his home medications and to monitor his HR and BP at home SW saw patient for his concerns with finances and medications, lasix cost 4 dollars and patient stated he is able to afford that, he is provided with support for his qvridxtt-Sco-hbi and Symbicort patient is clinically stable to be discharged Emphasis on compliance with medications and follow up was made Follow up with PCP/INR clinic/Podiatry/Cardiology - Time Spent with Patient Total time spent providing and/or coordinating discharge services: Less than 30 minutes - Constitutional Vitals: Temp Pulse Resp BP Pulse Ox 97.7 F 78 18 129/76 94 02/11/17 11:38 02/11/17 11:40 02/11/17 11:38 02/11/17 11:38 02/11/17 11:38 General appearance: Present: A&O X 3, pleasant, no acute distress, obese - Head Head exam: Present: atraumatic, normocephalic - Eye Eye exam: Present: PERRL, conjuntiva pink, sclera anicteric Pupils: Present: PERRL - Neck Neck exam general surgery: Present: supple, trachea midline. Absent: lymphadenopathy - Respiratory Respiratory exam: Present: CTAB. Absent: accessory muscle use, rales, rhonchi, wheezes - Cardiovascular Cardiovascular exam: Present: RRR, +S1, +S2. Absent: diastolic murmur, gallop, rubs, systolic murmur - GI/Abdominal GI/Abdominal exam: Present: normal bowel sounds, soft, no peritoneal signs. Absent: distended, tenderness - Extremities Exam Additional comments: Chronic venous stasis changes. No pedal edema Wound dressing on Left leg noted, clean and dry - Neurological Exam Neurological exam: Present: alert, CN II-XII intact, oriented X3, no focal deficits. Absent: pronater drift, facial droop, speech deficit - Skin Skin exam: Present: dry
[2017-02-11] MEDS: *HR* Warfarin 3 MG TABLET PO SCH (18:17)
--- NOTE | 2017-02-11 18:57 | Venous Imaging Report ---
LE Venous Duplex Patient Name:Angel Fierro Order Number:[id number] Procedure Date:02/10/2017 Date:9Age:66 yrs Gender:Male Location:[facility] Room #: 2N10 Chart Changer:Max Barillas RN Referring MD:Kodi Murcia MD clinical resource coordinator:Luis Garcia M.D. Reading MD:Pee Simon MD , FACS Primary Indications:Swelling of limb Secondary Indications: Risk Factors Yes/No Anticoagulants Yes Hx of DVT Yes Impressions: Bilateral lower extremity: normal superficial and deep exam. Recommendations: Test completed on 02/10/2017 at 10:15:00 am. Findings Venous Duplex Results: Right: Venous imaging of the lower extremity reveals full patency and normal vessel compressibility of the right distal iliac, right common femoral, right superficial femoral, right popliteal, right posterior tibial, right peroneal, right great saphenous and right lesser saphenous. Doppler signals in the evaluated veins were normal. Left: Venous imaging of the lower extremity reveals full patency and normal vessel compressibility of the left distal iliac, left common femoral, left superficial femoral, left popliteal, left posterior tibial, left peroneal, left great saphenous and left lesser saphenous. Doppler signals in the evaluated veins were normal. Prior Study: No change compared to prior study dated: 11/18/2016. Lower Extremity Venous Duplex Side Vein Compress Spontaneous Flow Augment Diameter (cm) Depth (cm) Right Distal Iliac Normal Yes Phasic Yes Right Common Femoral Normal Yes Phasic Yes Right Superficial Femoral Normal Yes Phasic Yes Right Popliteal Normal Yes Phasic Yes Right Posterior Tibial Normal Yes Phasic Yes Right Peroneal Normal Yes Phasic Yes Right Great Saphenous Normal Yes Phasic Yes Right Lesser Saphenous Normal Yes Phasic Yes Left Distal Iliac Normal Yes Phasic Yes Left Common Femoral Normal Yes Phasic Yes Left Superficial Femoral Normal Yes Phasic Yes Left Popliteal Normal Yes Phasic Yes Left Posterior Tibial Normal Yes Phasic Yes Left Peroneal Normal Yes Phasic Yes Left Great Saphenous Normal Yes Phasic Yes Left Lesser Saphenous Normal Yes Phasic Yes Updated by Pee Simon MD, FACS on 02/11/2017 6:51:53 PM Pee Simon MD electronically signed on 02/11/2017 6:52:19 PM with status of Final
[2017-02-12] MEDS ORDERED: *HR* Warfarin 3 MG TABLET PO SCH ×2 (18:00→22:23)
== END 2017-02-11 18:50 | disposition home or self-care (01) | DRG 292 ==
LOC: 2NNU 14:27 → EMEROO 14:27 → 2NNU 19:40 → SUATTDRO 22:49
PROVIDERS: ADMIT Family Medicine; ATTEND Internal Medicine

== ENCOUNTER 2019-03-11 15:24 | Observation (INO) ==
[2019-03-11] MEDS ORDERED: *HR* OxyCODONE/APAP 5/325 TABLET PO ONE (16:08)
--- NOTE | 2019-03-11 16:10 | Emergency Department Note ---
Disposition Clinical Impression: Strain of lumbar region Qualifiers: Encounter type: initial encounter Qualified Code(s): S39.012A - Strain of muscle, fascia and tendon of lower back, initial encounter Disposition: Still a Patient Forms: ED Satisfaction Letter Time of Disposition: 18:21 Back Pain HPI - General Chief Complaint: ED Back Pain/Injury Stated Complaint: back pain Time Seen by Provider: 03/11/19 15:56 Source: patient Limitations: no limitations Nursing Notes Reviewed: Yes Vital Signs Reviewed: Yes - History of Present Illness HPI Narrative: 68-year-old male with PMR 45.6 presents with lower back pain for 4 days. Patient denied recently injury. Patient stated the pain located in middle of lower back. No radiation. But weight bearing and changing position exacerbate the pain. Patient is able to put weight on leg in very short time. No incontinency over urinating or bowel movement. No weakness of lower extremities. Patient has a history of for COPD, diabetes, neuropathy, and CAD. Pt Subjective Complaint: back pain - Related Data Home Medications Medication Instructions Recorded Confirmed Escitalopram [Lexapro] 20 mg PO HS 05/20/16 02/09/17 Gabapentin [Neurontin] 100 mg PO TID 05/20/16 02/09/17 Trazodone HCl 150 mg PO HS PRN 05/20/16 02/09/17 clonazePAM [Klonopin] 1 mg PO BID PRN 05/20/16 02/09/17 Acetaminophen [Tylenol] 650 mg PO Q6HR PRN 09/09/16 02/09/17 Warfarin [Coumadin] 6 mg PO MOTUWEFRSA 12/12/16 02/09/17 Warfarin [Coumadin] 9 mg PO SUTH 12/12/16 02/09/17 Atorvastatin [Lipitor] 40 mg PO HS 02/09/17 02/09/17 Quetiapine Fumarate [Seroquel] 50 mg PO HS 02/09/17 02/09/17 Spironolactone [Aldactone] 12.5 mg PO DAILY 02/09/17 02/09/17 Previous Rx's Medication Instructions Recorded Aspirin 81 mg PO DAILY #30 tab.chew 05/22/16 Nitroglycerin 0.4 mg SL Q5MIN PRN #25 tab.subl 05/22/16 Amiodarone [Cordarone] 200 mg PO DAILY #30 tablet 08/20/16 Furosemide [Lasix] 40 mg PO DAILY #60 02/11/17 Metoprolol [Lopressor] 25 mg PO BID #60 tablet 02/11/17 Sennosides/Docusate Sodium [Senna 2 each PO BID PRN #30 tablet 02/11/17 Plus] Allergies Allergy/AdvReac Type Severity Reaction Status Date / Time No Known Allergies Allergy Verified 09/09/16 09:34 Constitutional: Denies: fever, chills Eyes: Denies: eye pain ENT ED: Denies: ear pain Cardiovascular: Denies: chest pain Respiratory: Denies: cough Gastrointestinal: Denies: abdominal pain Genitourinary: Denies: urgency Musculoskeletal: Reports: back pain Integumentary: Denies: rash Neurological: Denies: headache Psychiatric: Denies: anxiety Endocrine: Denies: fatigue Hematological/Lymphatic: Denies: easy bleeding Allergic/Immunologic: Denies: facial swelling Past Medical History - Past Medical History Medical history: Reports: COPD, coronary artery disease, DVT, diabetes, hyperlipidemia, hypertension, peripheral artery disease, venous stasis Surgical history: Reports: angioplasty/stent, coronary bypass (CABG), other Psychiatric history: Reports: bipolar, PTSD - Social History Smoking Status: Current every day smoker Smokeless Tobacco Status: No Alcohol use: Reports: none Drug use: Reports: none Physical Exam - General Limitations: no limitations General appearance: alert - Head Head exam: atraumatic - Eye Eye exam: Present: normal appearance - ENT ENT exam: normal exam - Neck Neck exam: Present: normal inspection - Chest Chest inspection: Present: normal inspection - Respiratory Respiratory exam: Present: normal lung sounds bilaterally - Cardiovascular Cardiovascular exam: Present: regular rate - Abdominal Exam Abdominal exam: Present: soft, Non-Tender - Extremities Exam Extremities exam: Present: normal inspection, full ROM. Absent: tenderness - Back Exam Back exam: Present: normal inspection, tenderness. Absent: full ROM - Neurological Exam Neurological exam: Present: alert, oriented X3. Absent: motor sensory deficit - Psychiatric Psychiatric exam: Present: normal affect - Skin Skin exam: Present: warm Course Vital Signs Temperature 98.4 F 03/11/19 15:33 Pulse Rate 71 03/11/19 15:33 Respiratory Rate 15 03/11/19 15:33 Blood Pressure 149/80 03/11/19 15:33 O2 Sat by Pulse Oximetry 94 03/11/19 15:33 Temperature 98.4 F 03/11/19 16:04 Pulse Rate 61 03/11/19 17:43 Respiratory Rate 20 03/11/19 17:43 Blood Pressure 131/76 03/11/19 17:43 O2 Sat by Pulse Oximetry 95 03/11/19 17:43 Oxygen Delivery Oxygen Delivery Room Air Back Pain/Injury - MDM Narrative Medical decision making narrative: 68-year-old male with a history of diabetes, neuropathy, CAD presents with nontraumatic lower back pain for 3 days. Patient stated moving body exacerbate the pain. Patient denied weakness of lower extremities. No incontinency of urinating or bowel movement. physical exam: lumbar spine tender to palpation, no focal neurology deficit. Xray lumbar; no acute change. Pt is given one dose of oxycodone, no improvement. Pt is given dilaudid shot. Plan to ambulate the patient when pain is improved. Transfer care to [facility]. Dispo: depends. - Radiology Data Radiology results reviewed: Yes I reviewed the patient's radiology results. COMPARISON: 09/05/2015. HISTORY: ORDERING SYSTEM PROVIDED HISTORY: lower back pain Several day history of low back pain. No recent injury. FINDINGS: Lumbar vertebral alignment is normal. Bone density is preserved with no acute fracture. Stable mild multilevel degenerative disc disease extending from L1-through L4-5. Moderate lower lumbar facet arthropathy. Prominent aortoiliac vascular calcification. Advanced degenerative changes are noted at the left hip. XR/XR lumbar spine 2-3V IMPRESSION: No acute osseous abnormality of the lumbar spine. Multilevel lumbar spondylosis and lower lumbar facet arthropathy. Advanced degenerative change at the left hip. D/ / Floyd Ordaz MD / Floyd Ordaz MD Interpreting Provider: Floyd Ordaz MD
[2019-03-11] MEDS ORDERED: *HR* HYDROmorphone (PF) 1 MG/ML SYRINGE IM ONE (17:41)
--- NOTE | 2019-03-11 18:35 | Emergency Department Note ---
Disposition Clinical Impression: Atherosclerotic cardiovascular disease, Thyroid nodule Strain of lumbar region Qualifiers: Encounter type: initial encounter Qualified Code(s): S39.012A - Strain of muscle, fascia and tendon of lower back, initial encounter Disposition: Admitted As Inpatient Condition: Good Time of Disposition: 22:58 Back Pain HPI - General Chief Complaint: ED Back Pain/Injury Stated Complaint: back pain Time Seen by Provider: 03/11/19 15:56 Source: patient Mode of arrival: private vehicle Limitations: no limitations Nursing Notes Reviewed: Yes Vital Signs Reviewed: Yes - Related Data Home Medications Medication Instructions Recorded Confirmed Escitalopram [Lexapro] 20 mg PO HS 05/20/16 03/12/19 Trazodone HCl 150 mg PO HS PRN 05/20/16 03/12/19 clonazePAM [Klonopin] 1 mg PO BID PRN 05/20/16 03/12/19 Acetaminophen [Tylenol] 650 mg PO Q6HR PRN 09/09/16 03/12/19 Warfarin [Coumadin] 6 mg PO SUMOTUWE 12/12/16 03/12/19 Warfarin [Coumadin] 9 mg PO THFRSA 12/12/16 03/12/19 Atorvastatin [Lipitor] 40 mg PO HS 02/09/17 03/12/19 Spironolactone [Aldactone] 25 mg PO DAILY 02/09/17 03/12/19 Furosemide [Lasix] 20 mg PO DAILY 03/11/19 03/12/19 Lisinopril 2.5 mg PO DAILY 03/11/19 03/12/19 Budesonide/Formoterol 80/4.5 2 puff IH BID 03/12/19 03/12/19 [Symbicort 80/4.5] Gabapentin [Neurontin] 300 mg PO TID 03/12/19 03/12/19 Quetiapine Fumarate [SEROquel] 100 mg PO HS 03/12/19 03/12/19 methIMAzole [Methimazole] 10 mg PO DAILY 03/12/19 03/12/19 Previous Rx's Medication Instructions Recorded Aspirin 81 mg PO DAILY #30 tab.chew 05/22/16 Nitroglycerin 0.4 mg SL Q5MIN PRN #25 tab.subl 05/22/16 Metoprolol [Lopressor] 25 mg PO BID #60 tablet 02/11/17 Oxycodone HCl/Acetaminophen 1 each PO TID 3 Days #9 tablet 03/11/19 [Endocet 5-325 Tablet] Allergies Allergy/AdvReac Type Severity Reaction Status Date / Time No Known Allergies Allergy Verified 09/09/16 09:34 Constitutional: Denies: fever, chills Eyes: Denies: eye pain ENT ED: Denies: ear pain Cardiovascular: Denies: chest pain Respiratory: Denies: cough Gastrointestinal: Denies: abdominal pain Genitourinary: Denies: urgency Musculoskeletal: Reports: back pain Integumentary: Denies: rash Neurological: Denies: headache Psychiatric: Denies: anxiety Endocrine: Denies: fatigue Hematological/Lymphatic: Denies: easy bleeding Allergic/Immunologic: Denies: facial swelling Past Medical History - Past Medical History Medical history: Reports: COPD, coronary artery disease, DVT, diabetes, hyperlipidemia, hypertension, peripheral artery disease, venous stasis Surgical history: Reports: angioplasty/stent, coronary bypass (CABG), other Psychiatric history: Reports: bipolar, PTSD - Social History Smoking Status: Current every day smoker Smokeless Tobacco Status: No Alcohol use: Reports: none Drug use: Reports: none Physical Exam - General Limitations: no limitations General appearance: alert Course Course Narrative: Case assumed from previous LAVERNEmily please see her documentation for treatment interventions prior to arrival. Briefly, this is a 68-year-old male who presents emergency department for evaluation of low back pain for last 4 days, there is been no injury, trauma, slips, trips, falls. Pain is in the middle of his lower back with no radiation, he is weightbearing to his legs for very short periods related to the pain to his back. Pain is worse when he is weightbearing or different position. Patient has a history of diabetes with neuropathy however he denies any new weakness, numbness, tingling, paresthesia. He has no neurological deficit. X-ray was completed prior to my arrival that revealed degenerative changes lumbar spine, multiple spondylosis as well as left hip degeneration and advanced age. Patient was given oxycodone initially but this did not assist this pain, he was given then hydromorphone which brought his pain from a 10 down to a 7, currently we are waiting to see if patient will be able to go home with pain management versus admission for pain management. Patient lives at home with his who is debilitated and is in a wheelchair, minimal resources. 184-patient is still considerably uncomfortable, he is laying on his bed, and he is cringing in pain. He does disclose that they got a new girlfriend retriever puppy on Thursday, he has been bending and picking up the bowel movements and urine pads as well as helping lift a dog, he has not had very much sleep. He states this is a lot more movement than what he is used to. He states that he generally walks with a walker and also uses a wheelchair due to just the chronic weakness in his legs, he states again that this is unchanged. He states he is not having any chest pain or abdominal pain, there is no urinary complaints. He has not had any bowel movement issues. He states the pain is in his mid lower back and nothing is making it any better. He does state he is a lifelong smoker he states probably 55 years. He is on Coumadin for A. fib) he thinks this is what it is), his last INR was 1.6 earlier in the week. He states he has a history of a CABG and pretty significant coronary artery disease. Examination reveals obvious pain, no abdominal pain, no leg pain. Patient is noted to have equal discoloration to his legs and multiple varicose veins, he does have palpable pedal pulses bilaterally that are equal to the TB and DP. Capillary refill is brisk. I asked him if this is a change from his baseline, he states his lower extremities are otherwise discolored but he is unable to te ll me if this is a change or not. He states "looks the same to me". Patient is vitally stable, he is normotensive, non-tachycardic. Given patient's significant pain, multiple comorbidities I do feel it would be in her best interest to visualize the aorta, get labs and started an IV. We will also obtain an EKG and troponin. Patient is fairly certain all of his pain is related to the increased movement, bending, twisting and lifting related to the new puppy however he does have so many multiple comorbidities and he does have obvious vascular disease I do feel would be prudent to fully work up. 192-have been ordered 50 g of fentanyl, he was talking to the nurse and the nurse diluted in the 50 g in 5ml saline flush, after she gave the first milliliter patient became jittery he stated he started to get very sleepy, he did stay awake, oriented, alert, heart rate is regular rhythm however given the immediate response we had him patient started On Oxycodone We Did Decide to Hold the Other 40 g of Fentanyl. Pain Stays a 6 Out Of 10 at This Time, We Will Wait a Little Bit Prior to Reassessing Pain. EKG Was Completed during This Time As Well Which Shows a Sinus Rhythm with a Ventricular Rate of 62 Bpm, NM Interval 170 Ms, QTC Is Prolonged at 696 Ms There Is No Evidence of Ischemic Morphology However the QTC Prolongation Is New, Potentially Medication Related As He Is on Multiple Medications, We Will Continue to Assess and Repeat. - Reevaluation(s) Reevaluation #1: Pain has been better managed. Labs returned unremarkable, UA without evidence of infection. CTA was completed which did reveal moderate to severe arthrosclerotic disease but there is no evidence of occlusion or dissection. There is no evidence of bony or intraoral pelvic or intra-chest abnormality that would account for patient's pain. After thorough evaluation and having Controlled pain and refill patient would be able to care for self at home. He already has a walker and a wheelchair, they do have home health. Do feel this is musculoskeletal in nature, when necessary he has home health, has follow-up with his PCP. We will provide pain management to assist through the weekend and patient to follow-up with his PCP on Thursday. He is agreeable to this plan of care. He is safe for discharge at the discontinuation of IV fluids. Time: 22:51 Reevaluation #2: Patient is unable to complete transfers. He states the pain when he is moving as a 10 out of 10, he is unsure how to care for himself at home. He is unable to get himself out of bed or even complete independent in mobility. He states even when the pain medicine was in full fact that he felt better he was unable to sit up and sit on the side of the bed. He states he does not feel safe going home. Patient is ambulatory with a wheelchair and uses a walker however he would be unable to care for self at home as he does not have any assistance to awaken, is wheelchair bound. At this time we will need to admit patient for pain management for lower back pain. Time: 23:44 Reevaluation #3: Spoke with hospitalist, Dr. Selby, agreeable to accept and's for inpatient status. We will monitor the patient while the admission process is completed. Currently patient is resting quietly. Time: 00:08 Vital Signs Temperature 98.4 F 03/11/19 15:33 Pulse Rate 71 03/11/19 15:33 Respiratory Rate 15 03/11/19 15:33 Blood Pressure 149/80 03/11/19 15:33 O2 Sat by Pulse Oximetry 94 03/11/19 15:33 Temperature 98.5 F 03/13/19 02:54 Pulse Rate 63 03/13/19 02:54 Respiratory Rate 14 03/13/19 02:54 Blood Pressure 134/84 03/13/19 02:54 O2 Sat by Pulse Oximetry 94 03/13/19 02:54 Oxygen Delivery Oxygen Delivery Room Air Back Pain/Injury - Lab Data Result diagrams: 03/11/19 18:58 03/11/19 18:58 Lab Results 03/11/19 03/11/19 03/11/19 Range/Units 18:58 18:58 18:58 WBC 11.9 H (4.3-11.1) K/mcL RBC 5.38 (4.19-5.50) M/mcL Hgb 16.2 (12.9-16.9) g/dL Hct 49.0 (37.5-50.1) % MCV 91.1 (83.0-100.0) fL MCH 30.1 (28.0-33.3) pg MCHC 33.1 (31.6-35.5) g/dL RDW 14.9 H (11.5-14.5) % Plt Count 249 (140-400) K/mcL MPV 9.2 L (9.4-12.4) fL Immature Gran % 0.7 (0-4) % Seg Neutrophils % 66.5 % Lymphocytes % 23.6 % Monocytes % 6.2 % Eosinophils % 2.1 % Basophils % 0.9 % Neutrophils # 7.9 (1.6-8.9) K/mcL Lymphocytes # 2.8 (0.6-4.6) K/mcL Monocytes # 0.7 (0.0-1.3) K/mcL Eosinophils # 0.3 (0.0-0.6) K/mcL Basophils # 0.1 (0.0-0.2) K/mcL Nucleated RBCs/100 WBC 0.2 H (0) /100 WBC PT 18.7 H (9.4-12.1) Seconds INR 1.6 APTT 40.1 H (26.0-36.0) Seconds Sodium 136 (136-145) mEq/L Potassium 4.5 (3.5-5.1) mEq/L Chloride 102 (98-107) mEq/L Carbon Dioxide 22 L (23-29) mEq/L BUN 13 (8-23) mg/dL Creatinine 0.97 (0.70-1.30) mg/dL Est GFR ( Amer) > 60 (> 60) Est GFR (Non-Af Amer) > 60 (> 60) BUN/Creatinine Ratio 13 (6-26) Glucose 104 (70-105) mg/dL Calculated Osmolality 282 (280-300) Calcium 9.7 (8.6-10.3) mg/dL Total Bilirubin 0.6 (0.3-1.0) mg/dL Direct Bilirubin 0.1 (0.0-0.2) mg/dL Indirect Bilirubin 0.5 (0.0-1.2) mg/dL AST 22 (13-39) Units/L ALT 14 (7-52) Units/L Alkaline Phosphatase 87 (34-104) Units/L Troponin I < 0.03 (< 0.04) ng/mL Serum Total Protein 7.4 (6.4-8.9) g/dL Albumin 4.0 (3.5-5.7) g/dL Globulin 3.4 (2.4-3.5) g/dL Albumin/Globulin Ratio 1.2 (1.1-2.2) Lipase 17 (11-82) Units/L Urine Color (Yellow) Urine Clarity (Clear) Urine pH (5.0-8.0) pH Units Ur Specific [place] (1.010-1.025) Urine Protein (Neg-Trace) mg/dL Urine Glucose (UA) (Normal) mg/dL Urine Ketones (Negative) mg/dL Urine Blood (Negative) Urine Nitrite (Negative) Urine Bilirubin (Negative) Urine Urobilinogen (Normal) mg/dL Ur Leukocyte Esterase (Negative) Urine Microscopic RBC (0-3) per hpf Urine Microscopic WBC (0-3) per hpf Ur Squamous Epith Cells (None-Few) per lpf Urine Bacteria (None-Few) per hpf Hyaline Casts (None-Few) per lpf Ur Culture Indicated? (NO) 03/11/19 Range/Units 19:50 WBC (4.3-11.1) K/mcL RBC (4.19-5.50) M/mcL Hgb (12.9-16.9) g/dL Hct (37.5-50.1) % MCV (83.0-100.0) fL MCH (28.0-33.3) pg MCHC (31.6-35.5) g/dL RDW (11.5-14.5) % Plt Count (140-400) K/mcL MPV (9.4-12.4) fL Immature Gran % (0-4) % Seg Neutrophils % % Lymphocytes % % Monocytes % % Eosinophils % % Basophils % % Neutrophils # (1.6-8.9) K/mcL Lymphocytes # (0.6-4.6) K/mcL Monocytes # (0.0-1.3) K/mcL Eosinophils # (0.0-0.6) K/mcL Basophils # (0.0-0.2) K/mcL Nucleated RBCs/100 WBC (0) /100 WBC PT (9.4-12.1) Seconds INR APTT (26.0-36.0) Seconds Sodium (136-145) mEq/L Potassium (3.5-5.1) mEq/L Chloride (98-107) mEq/L Carbon Dioxide (23-29) mEq/L BUN (8-23) mg/dL Creatinine (0.70-1.30) mg/dL Est GFR ( Amer) (> 60) Est GFR (Non-Af Amer) (> 60) BUN/Creatinine Ratio (6-26) Glucose (70-105) mg/dL Calculated Osmolality (280-300) Calcium (8.6-10.3) mg/dL Total Bilirubin (0.3-1.0) mg/dL Direct Bilirubin (0.0-0.2) mg/dL Indirect Bilirubin (0.0-1.2) mg/dL AST (13-39) Units/L ALT (7-52) Units/L Alkaline Phosphatase (34-104) Units/L Troponin I (< 0.04) ng/mL Serum Total Protein (6.4-8.9) g/dL Albumin (3.5-5.7) g/dL Globulin (2.4-3.5) g/dL Albumin/Globulin Ratio (1.1-2.2) Lipase (11-82) Units/L Urine Color Yellow (Yellow) Urine Clarity Clear (Clear) Urine pH 6.0 (5.0-8.0) pH Units Ur Specific [place] 1.013 (1.010-1.025) Urine Protein Trace (Neg-Trace) mg/dL Urine Glucose (UA) Normal (Normal) mg/dL Urine Ketones Negative (Negative) mg/dL Urine Blood Small H (Negative) Urine Nitrite Negative (Negative) Urine Bilirubin Negative (Negative) Urine Urobilinogen Normal (Normal) mg/dL Ur Leukocyte Esterase Negative (Negative) Urine Microscopic RBC 5-15 H (0-3) per hpf Urine Microscopic WBC 0-3 (0-3) per hpf Ur Squamous Epith Cells Few (None-Few) per lpf Urine Bacteria None Seen (None-Few) per hpf Hyaline Casts None Seen (None-Few) per lpf Ur Culture Indicated? NO (NO)
[2019-03-11] MEDS ORDERED: Isovue-370 500 ML BOTTLE IVP ONE (18:50)
[2019-03-11] MEDS ORDERED: *HR* FentaNYL (PF) 100 MCG/2 ML VIAL IVP ONE (18:53)
[2019-03-11 19:39] LABS: Basophils # 0.1 K/mcL (0.0-0.2); Basophils % 0.9 %; Eosinophils # 0.3 K/mcL (0.0-0.6); Eosinophils % 2.1 %; Hemoglobin 16.2 g/dL (12.9-16.9); Immature Granulocytes % 0.7 % (0-4); Lymphocytes # 2.8 K/mcL (0.6-4.6); Lymphocytes % 23.6 %; Mean Corpuscular HGB Conc 33.1 g/dL (31.6-35.5); Mean Corpuscular Hemoglobin 30.1 pg (28.0-33.3); Mean Corpuscular Volume 91.1 fL (83.0-100.0); Mean Platelet Volume 9.2 fL (9.4-12.4); Monocytes # 0.7 K/mcL (0.0-1.3); Monocytes % 6.2 %; Neutrophils # 7.9 K/mcL (1.6-8.9); Nucleated Red Blood Cells 0.2 /100 WBC (0); Platelet Count 249 K/mcL (140-400); Red Blood Count 5.38 M/mcL (4.19-5.50); Red Cell Distribution Width 14.9 % (11.5-14.5); Segmented Neutrophils % 66.5 %; White Blood Count 11.9 K/mcL (4.3-11.1)
[2019-03-11 19:46] LABS: INR 1.6; Prothrombin Time 18.7 Seconds (9.4-12.1)
[2019-03-11 19:48] LABS: Activated Partial Thrombo Time 40.1 Seconds (26.0-36.0)
[2019-03-11 20:00] LABS: Bilirubin,Urine Negative (Negative); Blood,Urine Small (Negative); Clarity,Urine Clear (Clear); Color,Urine Yellow (Yellow); Glucose,Urine (UA) Normal (Normal); Ketones,Urine Negative (Negative); Leukocyte Esterase,Urine Negative (Negative); Nitrite,Urine Negative (Negative); Protein,Urine Trace mg/dL (Neg-Trace); Specific Gravity,Urine 1.013 (1.010-1.025); Urobilinogen,Urine Normal (Normal)
[2019-03-11] MEDS ORDERED: *HR* OxyCODONE Immed Rel 5 MG TABLET PO STA (20:00)
[2019-03-11 20:02] LABS: Bacteria,Urine None Seen per hpf (None-Few); Hyaline Casts,Urine None Seen per lpf (None-Few); Squamous Epithelial Cell,Urine Few per lpf (None-Few); WBC,Urine 0-3 per hpf (0-3)
--- NOTE | 2019-03-11 20:21 | Emergency Department Note ---
Disposition Clinical Impression: Strain of lumbar region Qualifiers: Encounter type: initial encounter Qualified Code(s): S39.012A - Strain of muscle, fascia and tendon of lower back, initial encounter Disposition: Still a Patient Referrals: Luis Garcia MD [Primary Care Provider] - Forms: ED Satisfaction Letter Time of Disposition: 22:11 General Adult HPI - General Chief complaint: ED Back Pain/Injury Stated complaint: back pain Time Seen by Provider: 03/11/19 15:56 Source: patient Mode of arrival: private vehicle Limitations: no limitations - History of Present Illness Pain Scale: 7 - Related Data Home Medications Medication Instructions Recorded Confirmed Escitalopram [Lexapro] 20 mg PO HS 05/20/16 03/11/19 Gabapentin [Neurontin] 100 mg PO TID 05/20/16 03/11/19 Trazodone HCl 150 mg PO HS PRN 05/20/16 03/11/19 clonazePAM [Klonopin] 1 mg PO BID PRN 05/20/16 03/11/19 Acetaminophen [Tylenol] 650 mg PO Q6HR PRN 09/09/16 03/11/19 Warfarin [Coumadin] 6 mg PO 12/12/16 02/09/17 Warfarin [Coumadin] 9 mg PO 12/12/16 02/09/17 Atorvastatin [Lipitor] 40 mg PO HS 02/09/17 03/11/19 Quetiapine Fumarate [Seroquel] 100 mg PO HS 02/09/17 03/11/19 Spironolactone [Aldactone] 12.5 mg PO DAILY 02/09/17 03/11/19 Furosemide [Lasix] 20 mg PO DAILY 03/11/19 03/11/19 Lisinopril PO HS 03/11/19 Symbicort 160/4.5 BID 03/11/19 Previous Rx's Medication Instructions Recorded Aspirin 81 mg PO DAILY #30 tab.chew 05/22/16 Nitroglycerin 0.4 mg SL Q5MIN PRN #25 tab.subl 05/22/16 Metoprolol [Lopressor] 25 mg PO BID #60 tablet 02/11/17 Sennosides/Docusate Sodium [Senna 2 each PO BID PRN #30 tablet 02/11/17 Plus] Allergies Allergy/AdvReac Type Severity Reaction Status Date / Time No Known Allergies Allergy Verified 09/09/16 09:34 Constitutional: Denies: fever, chills Eyes: Denies: eye pain ENT ED: Denies: ear pain Cardiovascular: Denies: chest pain Respiratory: Denies: cough Gastrointestinal: Denies: abdominal pain Genitourinary: Denies: urgency Musculoskeletal: Reports: back pain Integumentary: Denies: rash Neurological: Denies: headache Psychiatric: Denies: anxiety Endocrine: Denies: fatigue Hematological/Lymphatic: Denies: easy bleeding Allergic/Immunologic: Denies: facial swelling Past Medical History - Past Medical History Medical history: Reports: COPD, coronary artery disease, DVT, diabetes, hyperlipidemia, hypertension, peripheral artery disease, venous stasis Surgical history: Reports: angioplasty/stent, coronary bypass (CABG), other Psychiatric history: Reports: bipolar, PTSD - Social History Smoking Status: Current every day smoker Smokeless Tobacco Status: No Alcohol use: Reports: none Drug use: Reports: none Physical Exam - General Limitations: no limitations General appearance: alert Course Vital Signs Temperature 98.4 F 03/11/19 15:33 Pulse Rate 71 03/11/19 15:33 Respiratory Rate 15 03/11/19 15:33 Blood Pressure 149/80 03/11/19 15:33 O2 Sat by Pulse Oximetry 94 03/11/19 15:33 Temperature 98.4 F 03/11/19 16:04 Pulse Rate 63 03/11/19 21:48 Respiratory Rate 20 03/11/19 21:48 Blood Pressure 152/72 03/11/19 21:48 O2 Sat by Pulse Oximetry 92 03/11/19 21:48 Oxygen Delivery Oxygen Delivery Room Air Medical Decision Making - Lab Data Result diagrams: 03/11/19 18:58 03/11/19 18:58 Lab Results 03/11/19 03/11/19 03/11/19 Range/Units 18:58 18:58 18:58 WBC 11.9 H (4.3-11.1) K/mcL RBC 5.38 (4.19-5.50) M/mcL Hgb 16.2 (12.9-16.9) g/dL Hct 49.0 (37.5-50.1) % MCV 91.1 (83.0-100.0) fL MCH 30.1 (28.0-33.3) pg MCHC 33.1 (31.6-35.5) g/dL RDW 14.9 H (11.5-14.5) % Plt Count 249 (140-400) K/mcL MPV 9.2 L (9.4-12.4) fL Immature Gran % 0.7 (0-4) % Seg Neutrophils % 66.5 % Lymphocytes % 23.6 % Monocytes % 6.2 % Eosinophils % 2.1 % Basophils % 0.9 % Neutrophils # 7.9 (1.6-8.9) K/mcL Lymphocytes # 2.8 (0.6-4.6) K/mcL Monocytes # 0.7 (0.0-1.3) K/mcL Eosinophils # 0.3 (0.0-0.6) K/mcL Basophils # 0.1 (0.0-0.2) K/mcL Nucleated RBCs/100 WBC 0.2 H (0) /100 WBC PT 18.7 H (9.4-12.1) Seconds INR 1.6 APTT 40.1 H (26.0-36.0) Seconds Sodium 136 (136-145) mEq/L Potassium 4.5 (3.5-5.1) mEq/L Chloride 102 (98-107) mEq/L Carbon Dioxide 22 L (23-29) mEq/L BUN 13 (8-23) mg/dL Creatinine 0.97 (0.70-1.30) mg/dL Est GFR ( Amer) > 60 (> 60) Est GFR (Non-Af Amer) > 60 (> 60) BUN/Creatinine Ratio 13 (6-26) Glucose 104 (70-105) mg/dL Calculated Osmolality 282 (280-300) Calcium 9.7 (8.6-10.3) mg/dL Total Bilirubin 0.6 (0.3-1.0) mg/dL Direct Bilirubin 0.1 (0.0-0.2) mg/dL Indirect Bilirubin 0.5 (0.0-1.2) mg/dL AST 22 (13-39) Units/L ALT 14 (7-52) Units/L Alkaline Phosphatase 87 (34-104) Units/L Troponin I < 0.03 (< 0.04) ng/mL Serum Total Protein 7.4 (6.4-8.9) g/dL Albumin 4.0 (3.5-5.7) g/dL Globulin 3.4 (2.4-3.5) g/dL Albumin/Globulin Ratio 1.2 (1.1-2.2) Lipase 17 (11-82) Units/L Urine Color (Yellow) Urine Clarity (Clear) Urine pH (5.0-8.0) pH Units Ur Specific [place] (1.010-1.025) Urine Protein (Neg-Trace) mg/dL Urine Glucose (UA) (Normal) mg/dL Urine Ketones (Negative) mg/dL Urine Blood (Negative) Urine Nitrite (Negative) Urine Bilirubin (Negative) Urine Urobilinogen (Normal) mg/dL Ur Leukocyte Esterase (Negative) Urine Microscopic RBC (0-3) per hpf Urine Microscopic WBC (0-3) per hpf Ur Squamous Epith Cells (None-Few) per lpf Urine Bacteria (None-Few) per hpf Hyaline Casts (None-Few) per lpf Ur Culture Indicated? (NO) 03/11/19 Range/Units 19:50 WBC (4.3-11.1) K/mcL RBC (4.19-5.50) M/mcL Hgb (12.9-16.9) g/dL Hct (37.5-50.1) % MCV (83.0-100.0) fL MCH (28.0-33.3) pg MCHC (31.6-35.5) g/dL RDW (11.5-14.5) % Plt Count (140-400) K/mcL MPV (9.4-12.4) fL Immature Gran % (0-4) % Seg Neutrophils % % Lymphocytes % % Monocytes % % Eosinophils % % Basophils % % Neutrophils # (1.6-8.9) K/mcL Lymphocytes # (0.6-4.6) K/mcL Monocytes # (0.0-1.3) K/mcL Eosinophils # (0.0-0.6) K/mcL Basophils # (0.0-0.2) K/mcL Nucleated RBCs/100 WBC (0) /100 WBC PT (9.4-12.1) Seconds INR APTT (26.0-36.0) Seconds Sodium (136-145) mEq/L Potassium (3.5-5.1) mEq/L Chloride (98-107) mEq/L Carbon Dioxide (23-29) mEq/L BUN (8-23) mg/dL Creatinine (0.70-1.30) mg/dL Est GFR ( Amer) (> 60) Est GFR (Non-Af Amer) (> 60) BUN/Creatinine Ratio (6-26) Glucose (70-105) mg/dL Calculated Osmolality (280-300) Calcium (8.6-10.3) mg/dL Total Bilirubin (0.3-1.0) mg/dL Direct Bilirubin (0.0-0.2) mg/dL Indirect Bilirubin (0.0-1.2) mg/dL AST (13-39) Units/L ALT (7-52) Units/L Alkaline Phosphatase (34-104) Units/L Troponin I (< 0.04) ng/mL Serum Total Protein (6.4-8.9) g/dL Albumin (3.5-5.7) g/dL Globulin (2.4-3.5) g/dL Albumin/Globulin Ratio (1.1-2.2) Lipase (11-82) Units/L Urine Color Yellow (Yellow) Urine Clarity Clear (Clear) Urine pH 6.0 (5.0-8.0) pH Units Ur Specific [place] 1.013 (1.010-1.025) Urine Protein Trace (Neg-Trace) mg/dL Urine Glucose (UA) Normal (Normal) mg/dL Urine Ketones Negative (Negative) mg/dL Urine Blood Small H (Negative) Urine Nitrite Negative (Negative) Urine Bilirubin Negative (Negative) Urine Urobilinogen Normal (Normal) mg/dL Ur Leukocyte Esterase Negative (Negative) Urine Microscopic RBC 5-15 H (0-3) per hpf Urine Microscopic WBC 0-3 (0-3) per hpf Ur Squamous Epith Cells Few (None-Few) per lpf Urine Bacteria None Seen (None-Few) per hpf Hyaline Casts None Seen (None-Few) per lpf Ur Culture Indicated? NO (NO) Attestation Statement - Attestation Attestation: I have personally performed a face to face evaluation on this patient. I have reviewed and agree with the care plan. History and Exam by me shows: Patient ED complaint low back pain. Onset a few days ago but significantly worse today. No injury, but he has reported increased activity secondary to getting a new puppy and having to clean up after him. No numbness tingling in his legs. No new bowel or bladder incontinence. On exam he appears uncomfortable but in no distress present recently cut the bed. Sensations intact. He has noted to have chronic venous stasis to the bilateral shins that is symmetric. Plan. Imaging of the spine and abdominal vasculature. His CT imaging is unremarkable. His pain is likely muscular skeletal. He is having no neurologic symptoms to suggest he needs an MRI at this time. Conservative management he can follow up with his primary care physician. He will be directed to follow-up with his PCP for thyroid nodules. Lumbar Spine X-Ray 03/11/19 16:08 IMPRESSION: No acute osseous abnormality of the lumbar spine. Multilevel lumbar spondylosis and lower lumbar facet arthropathy. Advanced degenerative change at the left hip. D/ / Floyd Ordaz MD / Floyd Ordaz MD Interpreting Provider: Floyd Ordaz MD Dissection 03/11/19 18:50 IMPRESSION: 1. No acute vascular injury or evidence for aortic dissection. Moderate to severe atherosclerotic disease. 2. No acute intrathoracic or intra-abdominal process identified. 3. Enlarged and heterogeneous thyroid containing multiple nodules and calcifications. Recommend follow-up as per below. RECOMMENDATIONS: Managing Incidental Thyroid Nodule Detected at CT or MRI or US1. Follow up thyroid ultrasound recommend in these scenarios: \R\Solitary nodule with high risk imaging features (locally invasive nodule or suspicious lymph nodes). \R\Any nodule in a heterogeneous enlarged thyroid gland. NO further imaging is recommended in the following scenarios: \R\No f/u imaging is recommended for ITNs not meeting the above criteria. \R\No US or f/u recommended for ITNs without high risk features or with limited life expectancy or significant co-morbidities, unless clinically warranted. Note: These recommendations do not apply if increased risk for thyroid cancer or symptomatic thyroid disease. Recommendations for f/u of Incidental Thyroid Nodules (ITN) found on CT, MR, NM and Extrathyroidal US are based upon the ACR white paper and Phillips 3-tiered system for managing ITNs:J Am Kirill Radiol. 2015 Oct;12(2): 143-50 D/ / Morris Unger MD / Morris Unger MD Interpreting Provider: Morris Unger MD
[2019-03-11 20:45] LABS: Alanine Aminotransferase 14 Units/L (7-52); Albumin/Globulin Ratio 1.2 (1.1-2.2); Alkaline Phosphatase 87 Units/L (34-104); Aspartate Amino Transferase 22 Units/L (13-39); BUN/Creatinine Ratio 13 (6-26); Bilirubin,Direct 0.1 mg/dL (0.0-0.2); Bilirubin,Indirect 0.5 mg/dL (0.0-1.2); Bilirubin,Total 0.6 mg/dL (0.3-1.0); Blood Urea Nitrogen 13 mg/dL (8-23); Calcium 9.7 mg/dL (8.6-10.3); Carbon Dioxide 22 mEq/L (23-29); Chloride 102 mEq/L (98-107); Globulin 3.4 g/dL (2.4-3.5); Glucose 104 mg/dL (70-105); Lipase 17 Units/L (11-82); Osmolality,Calculated 282 (280-300); Potassium 4.5 mEq/L (3.5-5.1); Sodium 136 mEq/L (136-145); Total Protein 7.4 g/dL (6.4-8.9); Troponin I < 0.03 ng/mL (< 0.04); eGFR For African Americans > 60 (> 60); eGFR For Non-African Americans > 60 (> 60)
[2019-03-11] MEDS ORDERED: 0.9 % Sodium Chloride 1,000 ML IVC ONE (22:10)
--- NOTE | 2019-03-12 07:46 | Internal Med History&Physical ---
Date of Encounter: 03/12/19 Time of Encounter: 07:46 Internal Medicine - H&P: HPI Chief complaint: low back pain Admitted From: Home Plans for Post Hospital Care: Home History of present illness: Mr. Fierro is a 68 year old male last medical history of COPD, diabetes, neuropathy, coronary artery disease status post CABG in 2016, atrial fibrillation, hypertension, hyperlipidemia, PAD,who continues to smoke came in with complain of severe back pain and inability to move due to severe back pain. Patient bought a puppy and has been more active over the past 3 days. He is more or less wheelchair bound due to long-standing back pain and hip pain. He was recommended surgery by orthopedist in the past but have been added because of insurance issues. He has been using different maneuvers because of the puppy. He denies any difficulty passing stool or urine any tingling numbness or weakness in the lower extremity. He has long-standing swelling in his lower extremities with skin changes. Denies any fevers chills nausea vomiting or diarrhea. He is on Coumadin for A. fib. She was evaluated in ER with the disse ction studies which were unremarkable. There is radiologic evidence of multilevel lumbar spondylosis, advanced degenerative changes and hip arthritis especially in the left. Patient is aware of these. Patient was admitted for intractable low back pain. Past Med Surg Social Fam HX - Past Medical History Medical history: COPD, coronary artery disease, DVT, diabetes, hyperlipidemia, hypertension, peripheral artery disease, venous stasis Additional medical history: atrial flutter Psychiatric history: bipolar, PTSD - Past Surgical History Surgical History: angioplasty/stent, coronary bypass (CABG), other Additional surgical history: heart stent x 2, quadruple bypass, JENI, ablation - Social History Smoking Status: Current every day smoker Smokeless Tobacco Status: No Alcohol use: none Drug use: none - Family History Mother Family Member Ethnicity: Non- Living Status: Hx Family Cardiac Disorders: Yes Hx Family Respiratory Disorders: No Hx Family Cancer: No Hx Family GI Disorders: No Hx Family Endocrine Disorder: Yes Hx Family Neuromuscular Disorders: No Hx Family Neurologic Disorders: No Hx Family HEENT Disorders: No Hx Family Autoimmune Disorders: No Father Adopted: No Family Member Ethnicity: Non- Living Status: Hx Family Cardiac Disorders: Yes Hx Family Respiratory Disorders: No Hx Family Cancer: No Hx Family GI Disorders: No Hx Family Endocrine Disorder: No Hx Family Neuromuscular Disorders: No Hx Family Neurologic Disorders: No Hx Family HEENT Disorders: No Hx Family Autoimmune Disorders: No Internal Medicine - H&P: Meds Escitalopram [Lexapro] 20 mg PO HS 05/20/16 [History] Gabapentin [Neurontin] 100 mg PO TID 05/20/16 [History] Trazodone HCl 150 mg PO HS PRN 05/20/16 [History] clonazePAM [Klonopin] 1 mg PO BID PRN 05/20/16 [History] Aspirin 81 mg PO DAILY #30 tab.chew 05/22/16 [Rx] Nitroglycerin 0.4 mg SL Q5MIN PRN #25 tab.subl 05/22/16 [Rx] Acetaminophen [Tylenol] 650 mg PO Q6HR PRN 09/09/16 [History] Warfarin [Coumadin] 6 mg PO 12/12/16 [History] Warfarin [Coumadin] 9 mg PO 12/12/16 [History] Atorvastatin [Lipitor] 40 mg PO HS 02/09/17 [History] Quetiapine Fumarate [Seroquel] 100 mg PO HS 02/09/17 [History] Spironolactone [Aldactone] 12.5 mg PO DAILY 02/09/17 [History] Metoprolol [Lopressor] 25 mg PO BID #60 tablet 02/11/17 [Rx] Sennosides/Docusate Sodium [Senna Plus] 2 each PO BID PRN #30 tablet 02/11/17 [Rx] Furosemide [Lasix] 20 mg PO DAILY 03/11/19 [History] Lisinopril PO HS 03/11/19 [History] Oxycodone HCl/Acetaminophen [Endocet 5-325 Tablet] 1 each PO TID 3 Days #9 tablet 03/11/19 [Rx] Symbicort 160/4.5 BID 03/11/19 [History] Allergy/AdvReac Type Severity Reaction Status Date / Time No Known Allergies Allergy Verified 09/09/16 09:34 All Systems PM: A 10-system review of systems was performed and is negative for pertinent findings except as documented above in the HPI. - Constitutional Vitals: Temp Pulse Resp BP Pulse Ox 98.2 F 62 18 151/73 91 03/12/19 00:58 03/12/19 01:23 03/12/19 00:58 03/12/19 01:23 03/12/19 00:58 Exam: Constitutional: Vitals as noted. Conversant. No Apparent Distress. Morbidly obese Eyes : Sclera white, conjunctiva clear, no lid lag, PEARLA. ENT : Grossly normal hearing. Oropharyngeal exam unremarkable. Moist mucus membranes. Respiratory : No accessory muscle use. occasional rhonchi Cardiovascular : RRR, +S1, +S2. no murmur, gallop, rubs. No chest wall t enderness GI/Abdominal : Soft, Non-tender, Non-distended, normal bowel sounds, no peritoneal signs. no orgenomegaly or mass appreciated. no hernia. Musculoskeletal: no deformity noted. 1+ edema, pulses palpable and symmetrical in UE/LE. no calf tenderness. Neurological: AO X3, CN II-XII grossly intact, grossly normal motor and sensory exam. Skin: chronic dermatitis changes b/l LE without signs of infection Pych: Good insight and judgement. Intact memory. AOx3. Internal Med - H&P Results - Labs CBC & Chem 7: 03/11/19 18:58 03/11/19 18:58 Labs: Short CBC 03/11/19 Range/Units 18:58 WBC 11.9 H (4.3-11.1) K/mcL Hgb 16.2 (12.9-16.9) g/dL Hct 49.0 (37.5-50.1) % Plt Count 249 (140-400) K/mcL Neutrophils # 7.9 (1.6-8.9) K/mcL BMP 03/11/19 18:58 Sodium 136 Potassium 4.5 Chloride 102 Carbon Dioxide 22 L BUN 13 Creatinine 0.97 Glucose 104 Calcium 9.7 Cardiac Enzymes 03/11/19 Range/Units 18:58 Troponin I < 0.03 (< 0.04) ng/mL Liver Function 03/11/19 Range/Units 18:58 Total Bilirubin 0.6 (0.3-1.0) mg/dL Direct Bilirubin 0.1 (0.0-0.2) mg/dL AST 22 (13-39) Units/L ALT 14 (7-52) Units/L Alkaline Phosphatase 87 (34-104) Units/L Albumin 4.0 (3.5-5.7) g/dL Urine 03/11/19 Range/Units 19:50 Urine Color Yellow (Yellow) Urine Clarity Clear (Clear) Urine pH 6.0 (5.0-8.0) pH Units Ur Specific [place] 1.013 (1.010-1.025) Urine Protein Trace (Neg-Trace) mg/dL Urine Glucose (UA) Normal (Normal) mg/dL - Impressions ITS Impressions Lumbar Spine X-Ray 03/11/19 16:08 IMPRESSION: No acute osseous abnormality of the lumbar spine. Multilevel lumbar spondylosis and lower lumbar facet arthropathy. Advanced degenerative change at the left hip. D/ / Floyd Ordaz MD / Floyd Ordaz MD Interpreting Provider: Floyd Ordaz MD Dissection 03/11/19 18:50 IMPRESSION: 1. No acute vascular injury or evidence for aortic dissection. Moderate to severe atherosclerotic disease. 2. No acute intrathoracic or intra-abdominal process identified. 3. Enlarged and heterogeneous thyroid containing multiple nodules and calcifications. Recommend follow-up as per below. RECOMMENDATIONS: Managing Incidental Thyroid Nodule Detected at CT or MRI or US1. Follow up thyroid ultrasound recommend in these scenarios: \R\Solitary nodule with high risk imaging features (locally invasive nodule or suspicious lymph nodes). \R\Any nodule in a heterogeneous enlarged thyroid gland. NO further imaging is recommended in the following scenarios: \R\No f/u imaging is recommended for ITNs not meeting the above criteria. \R\No US or f/u recommended for ITNs without high risk features or with limited life expectancy or significant co-morbidities, unless clinically warranted. Note: These recommendations do not apply if increased risk for thyroid cancer or symptomatic thyroid disease. Recommendations for f/u of Incidental Thyroid Nodules (ITN) found on CT, MR, NM and Extrathyroidal US are based upon the ACR white paper and Phillips 3-tiered system for managing ITNs:J Am Kirill Radiol. 2015 Oct;12(2): 143-50 D/ / Morris Unger MD / Morris Unger MD Interpreting Provider: Morris Unger MD - Assessment and Plan (1) Intractable low back pain Current Visit: Yes Status: Acute Assessment and plan: Patient has advanced lumbar and hip degenerative changes. No signs of spinal cord compression. Patient is usually wheelchair bound most of the time. Previously had discussion about hip surgery but could not afford it. We will control patient's pain. Obtain PT/OT evaluation (2) Thyroid nodule Current Visit: Yes Status: Acute Assessment and plan: Incidentally found on CT Will need outpatient follow-up (3) Atrial fibrillation Current Visit: No Status: Chronic Assessment and plan: Currently rate controlled. Continue home medication was confirmed. Appears to be on metoprolol previously Patient on Coumadin. We will continue once dosage confirmed. Currently subtherapeutic. Qualifiers: Atrial fibrillation type: paroxysmal Qualified Code(s): I48.0 - Paroxysmal atrial fibrillation (4) CAD (coronary artery disease) Current Visit: No Status: Chronic Assessment and plan: Continue medications Without any signs of acute coronary events. Qualifiers: Coronary Disease-Associated Artery/Lesion type: [place] artery [place] vs. transplanted heart: [place] heart Associated angina: without angina Qualified Code(s): I25.10 - Atherosclerotic heart disease of [place] coronary artery without angina pectoris (5) COPD (chronic obstructive pulmonary disease) Current Visit: No Status: Chronic Assessment and plan: He continues to smoke. Counseled on cessation Not in exacerbation. Continue home inhalers Qualifiers: COPD type: unspecified COPD Qualified Code(s): J44.9 - Chronic obstructive pulmonary disease, unspecified (6) Depression Current Visit: No Status: Chronic Assessment and plan: Continue home antidepressants Qualifiers: Depression Type: unspecified Qualified Code(s): F32.9 - Major depressive disorder, single episode, unspecified (7) Diabetes mellitus Current Visit: No Status: Chronic Assessment and plan: Sliding scale insulin and Accu-Cheks Qualifiers: Diabetes mellitus type: type 2 Diabetes mellitus long term care phlebotomist insulin use: without penitentiary use Diabetes mellitus complication status: with circulatory complication Diabetes mellitus complication detail: with other circulatory complications Qualified Code(s): E11.59 - Type 2 diabetes mellitus with other circulatory complications (8) HTN (hypertension) Current Visit: No Status: Chronic Qualifiers: Hypertension type: essential hypertension Qualified Code(s): I10 - Essential (primary) hypertension (9) Non-insulin dependent type 2 diabetes mellitus Current Visit: No Status: Chronic - Time Spent With Patient Total time spent is greater than 50% in coordination of care (as documented) at patient's floor/unit and/or counseling patient:
[2019-03-12] MEDS ORDERED: Naloxone 0.4 MG/ML INJ IVP PRN (08:04)
[2019-03-12] MEDS ORDERED: *HR* FentaNYL (PF) 100 MCG/2 ML VIAL IVP PRN (08:06)
[2019-03-12] MEDS ORDERED: Nitroglycerin 0.4 MG TAB.SUBL SL PRN (08:09)
[2019-03-12] MEDS: Sennosides/Docusate Sodium TABLET PO PRN (10:05)
[2019-03-12] MEDS: clonazePAM 1 MG TABLET PO PRN (10:05)
[2019-03-12] MEDS: Gabapentin 100 MG CAPSULE PO SCH ×3 (10:05→21:58)
[2019-03-12] MEDS: Aspirin 81 MG TAB.CHEW PO SCH (10:05)
[2019-03-12] MEDS: Spironolactone 25 MG TABLET PO SCH (10:05)
[2019-03-12] MEDS: Furosemide 20 MG TABLET PO SCH (10:06)
[2019-03-12] MEDS: Insulin LISPRO 300 UNITS/3 ML VIAL SQ SCH ×2 (11:54→16:55)
[2019-03-12] MEDS: Acetaminophen 325 MG TABLET PO SCH ×2 (12:10→18:03)
[2019-03-12] MEDS ORDERED: Warfarin perPT PO PRN (18:00)
[2019-03-12] MEDS ORDERED: *HR* Warfarin 3 MG TABLET PO ONE (18:00)
[2019-03-13] MEDS: Acetaminophen 325 MG TABLET PO SCH ×4 (02:58→16:32)
[2019-03-13 04:27] LABS: INR 1.7; Prothrombin Time 19.1 Seconds (9.4-12.1)
[2019-03-13] MEDS: Insulin LISPRO 300 UNITS/3 ML VIAL SQ SCH ×3 (08:49→16:31)
[2019-03-13] MEDS: Gabapentin 100 MG CAPSULE PO SCH ×3 (09:03→20:50)
[2019-03-13] MEDS: Furosemide 20 MG TABLET PO SCH (09:03)
[2019-03-13] MEDS: clonazePAM 1 MG TABLET PO PRN (09:03)
[2019-03-13] MEDS: Aspirin 81 MG TAB.CHEW PO SCH (09:03)
[2019-03-13] MEDS: Spironolactone 25 MG TABLET PO SCH (09:03)
--- NOTE | 2019-03-13 12:07 | Internal Med Progress Note ---
Hospitalist Progress Note - Encounter Date of Encounter: 03/13/19 Time of Encounter: 12:05 - Subjective Interval History: Mr. Fierro is a 68 year old male last medical history of COPD, diabetes, neuropathy, coronary artery disease status post CABG in 2016, atrial fibrillation, hypertension, hyperlipidemia, PAD,who continues to smoke, came in with complain of severe back pain and inability to move due to severe back pain. Patient bought a puppy and has been more active over the past 3 days. He is more or less wheelchair bound due to long-standing back pain and hip pain. He is on Coumadin for A. fib. He was evaluated in ER with the dissection studies which were unremarkable. There is radiologic evidence of multilevel lumbar spondylosis, advanced degenerative changes and hip arthritis especially in the left. He admitted for intractable back pain. seen and examined in the room. Back pain has improved with pain medications. He wishes to be seen by PT/OT. - Exam Vitals: Temp Pulse Resp BP Pulse Ox 98.5 F 65 16 130/69 96 03/13/19 08:43 03/13/19 08:43 03/13/19 08:43 03/13/19 08:43 03/13/19 08:43 Exam: Constitutional: Vitals as noted. Conversant. No Apparent Distress. Morbidly obese Eyes : Sclera white, conjunctiva clear, no lid lag, PEARLA. ENT : Grossly normal hearing. Oropharyngeal exam unremarkable. Moist mucus membranes. Respiratory : No accessory muscle use. occasional rhonchi Cardiovascular : RRR, +S1, +S2. no murmur, gallop, rubs. No chest wall tenderness GI/Abdominal : Soft, Non-tender, Non-distended, normal bowel sounds, no peritoneal signs. no orgenomegaly or mass appreciated. no hernia. Musculoskeletal: no deformity noted. 1+ edema, pulses palpable and symmetrical in UE/LE. no calf tenderness. Neurological: AO X3, CN II-XII grossly intact, grossly normal motor and sensory exam. Skin: chronic dermatitis changes b/l LE without signs of infection Pych: Good insight and judgement. Intact memory. AOx3. - Assessment and Plan (1) Intractable low back pain Current Visit: Yes Status: Acute Assessment and Plan: Patient has advanced lumbar and hip degenerative changes. No signs of spinal cord compression. Patient is usually wheelchair bound most of the time. Previously had discussion about hip surgery but could not afford it. Continue pain medications. Pending PT/OT evaluation. (2) HTN (hypertension) Current Visit: No Status: Chronic Assessment and Plan: BP well controlled with current home medications. (3) Diabetes mellitus Current Visit: No Status: Chronic Assessment and Plan: Sliding scale insulin and Accu-Cheks. Blood glucose well controlled currently. (4) Depression Current Visit: No Status: Chronic Assessment and Plan: Continue home antidepressants. Mood stable, denies suicidal ideation. (5) COPD (chronic obstructive pulmonary disease) Current Visit: No Status: Chronic Assessment and Plan: He continues to smoke. Counseled on cessation Not in exacerbation. Continue home inhalers (6) CAD (coronary artery disease) Current Visit: No Status: Chronic Assessment and Plan: Continue medications Without any signs of acute coronary events. (7) Atrial fibrillation Current Visit: No Status: Chronic Assessment and Plan: Currently rate controlled. Continue Coumadin, pharmacy to dose, INR today 1.7. (8) Thyroid nodule Current Visit: Yes Status: Acute Assessment and Plan: Incidentally found on CT, patient on methimazole, will continue. Will need outpatient follow-up DVT Prophylaxis: On Coumadin. - Time Spent with Patient Total time spent is greater than 50% in coordination of care (as documented) at patient's floor/unit and/or counseling patient: Greater than 35 minutes Plan of Care Discussed with: patient Internal Medicine: Result - Labs CBC & Chem 7: 03/11/19 18:58 03/11/19 18:58 - ABG Interpretation ABG results: PT/INR, D-dimer PT 19.1 Seconds (9.4-12.1) H 03/13/19 03:20 Consult Discharge Plan - Plan Referrals: Luis Garcia MD [Primary Care Provider] - (Appointment has been requested. Office will call with date and time of appointment. ) (2) HTN (hypertension) Qualifiers: Hypertension type: essential hypertension Qualified Code(s): I10 - Essential (primary) hypertension (3) Diabetes mellitus Qualifiers: Diabetes mellitus type: type 2 Diabetes mellitus long term care social worker insulin use: without long term care social worker use Diabetes mellitus complication status: with circulatory complication Diabetes mellitus complication detail: with other circulatory complications Qualified Code(s): E11.59 - Type 2 diabetes mellitus with other circulatory complications (4) Depression Qualifiers: Depression Type: unspecified Qualified Code(s): F32.9 - Major depressive disorder, single episode, unspecified (5) COPD (chronic obstructive pulmonary disease) Qualifiers: COPD type: unspecified COPD Qualified Code(s): J44.9 - Chronic obstructive pulmonary disease, unspecified (6) CAD (coronary artery disease) Qualifiers: Coronary Disease-Associated Artery/Lesion type: [place] artery [place] vs. transplanted heart: [place] heart Associated angina: without angina Qualified Code(s): I25.10 - Atherosclerotic heart disease of [place] coronary artery without angina pectoris (7) Atrial fibrillation Qualifiers: Atrial fibrillation type: paroxysmal Qualified Code(s): I48.0 - Paroxysmal atrial fibrillation
[2019-03-13] MEDS ORDERED: *HR* Warfarin 3 MG TABLET PO ONE (18:00)
--- NOTE | 2019-03-13 18:28 | Electrocardiograph Report ---
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
[2019-03-13] MEDS: traZODone 50 MG TABLET PO PRN (20:52)
[2019-03-13] MEDS: Budesonide/Formoterol 80/4.5 MDI IH SCH (21:00)
[2019-03-14] MEDS: Acetaminophen 325 MG TABLET PO SCH ×5 (02:20→22:02)
[2019-03-14 05:09] LABS: Basophils # 0.1 K/mcL (0.0-0.2); Basophils % 0.8 %; Eosinophils # 0.5 K/mcL (0.0-0.6); Eosinophils % 5.3 %; Hematocrit 46.4 % (37.5-50.1); Immature Granulocytes % 0.9 % (0-4); Lymphocytes # 2.7 K/mcL (0.6-4.6); Lymphocytes % 30.8 %; Mean Corpuscular HGB Conc 32.3 g/dL (31.6-35.5); Mean Corpuscular Hemoglobin 29.7 pg (28.0-33.3); Mean Corpuscular Volume 91.9 fL (83.0-100.0); Mean Platelet Volume 9.5 fL (9.4-12.4); Monocytes # 0.6 K/mcL (0.0-1.3); Monocytes % 6.4 %; Neutrophils # 4.9 K/mcL (1.6-8.9); Platelet Count 241 K/mcL (140-400); Red Blood Count 5.05 M/mcL (4.19-5.50); Red Cell Distribution Width 14.6 % (11.5-14.5); Segmented Neutrophils % 55.8 %; White Blood Count 8.9 K/mcL (4.3-11.1)
[2019-03-14 05:15] LABS: INR 1.8; Prothrombin Time 20.3 Seconds (9.4-12.1)
[2019-03-14 05:30] LABS: BUN/Creatinine Ratio 14 (6-26); Blood Urea Nitrogen 15 mg/dL (8-23); Calcium 9.3 mg/dL (8.6-10.3); Carbon Dioxide 33 mEq/L (23-29); Chloride 100 mEq/L (98-107); Glucose 105 mg/dL (70-105); Osmolality,Calculated 293 (280-300); Potassium 4.3 mEq/L (3.5-5.1); Sodium 141 mEq/L (136-145); eGFR For African Americans > 60 (> 60); eGFR For Non-African Americans > 60 (> 60)
[2019-03-14] MEDS: Insulin LISPRO 300 UNITS/3 ML VIAL SQ SCH ×3 (08:16→17:11)
[2019-03-14] MEDS: Budesonide/Formoterol 80/4.5 MDI IH SCH ×2 (08:23→20:15)
[2019-03-14] MEDS: Sennosides/Docusate Sodium TABLET PO PRN (09:03)
[2019-03-14] MEDS: methIMAzole 5 MG TABLET PO SCH (09:03)
[2019-03-14] MEDS: Gabapentin 100 MG CAPSULE PO SCH ×3 (09:04→21:10)
[2019-03-14] MEDS: Aspirin 81 MG TAB.CHEW PO SCH (09:04)
[2019-03-14] MEDS: clonazePAM 1 MG TABLET PO PRN ×2 (09:04→22:02)
[2019-03-14] MEDS: Spironolactone 25 MG TABLET PO SCH (09:04)
[2019-03-14] MEDS: Furosemide 20 MG TABLET PO SCH (09:04)
--- NOTE | 2019-03-14 12:35 | Internal Med Progress Note ---
Hospitalist Progress Note - Encounter Date of Encounter: 03/14/19 Time of Encounter: 12:33 - Subjective Interval History: Mr. Fierro is a 68 year old male last medical history of COPD, diabetes, neuropathy, coronary artery disease status post CABG in 2016, atrial fibrillation, hypertension, hyperlipidemia, PAD,who continues to smoke, came in with complain of severe back pain and inability to move due to severe back pain. Patient bought a puppy and has been more active over the past 3 days. He is more or less wheelchair bound due to long-standing back pain and hip pain. He is on Coumadin for A. fib. He was evaluated in ER with the dissection studies which were unremarkable. There is radiologic evidence of multilevel lumbar spondylosis, advanced degenerative changes and hip arthritis especially in the left. He admitted for intractable back pain. Pt seen and examined in the room. Back pain has improved with pain medications. PT/OT recommended SNF, pt agrees. - Exam Vitals: Temp Pulse Resp BP Pulse Ox 98.0 F 52 16 134/77 95 03/14/19 12:10 03/14/19 12:10 03/14/19 12:10 03/14/19 12:10 03/14/19 12:10 Exam: Constitutional: Vitals as noted. Conversant. No Apparent Distress. Morbidly obese Eyes : Sclera white, conjunctiva clear, no lid lag, PEARLA. ENT : Grossly normal hearing. Oropharyngeal exam unremarkable. Moist mucus membranes. Respiratory : No accessory muscle use. occasional rhonchi Cardiovascular : RRR, +S1, +S2. no murmur, gallop, rubs. No chest wall tenderness GI/Abdominal : Soft, Non-tender, Non-distended, normal bowel sounds, no peritoneal signs. no orgenomegaly or mass appreciated. no hernia. Musculoskeletal: no deformity noted. 1+ edema, pulses palpable and symmetrical i n UE/LE. no calf tenderness. Neurological: AO X3, CN II-XII grossly intact, grossly normal motor and sensory exam. Skin: chronic dermatitis changes b/l LE without signs of infection Pych: Good insight and judgement. Intact memory. AOx3. - Assessment and Plan (1) Intractable low back pain Current Visit: Yes Status: Acute Assessment and Plan: Patient has advanced lumbar and hip degenerative changes. No signs of spinal cord compression. Patient is usually wheelchair bound most of the time. Previously had discussion about hip surgery but could not afford it. Continue pain medications. PT/OT evaluation recommended SNF. (2) HTN (hypertension) Current Visit: No Status: Chronic Assessment and Plan: BP well controlled with current home medications. (3) Diabetes mellitus Current Visit: No Status: Chronic Assessment and Plan: Sliding scale insulin and Accu-Cheks. Blood glucose well controlled currently. (4) Depression Current Visit: No Status: Chronic Assessment and Plan: Continue home antidepressants. Mood stable, denies suicidal ideation. (5) COPD (chronic obstructive pulmonary disease) Current Visit: No Status: Chronic Assessment and Plan: He continues to smoke. Counseled on cessation Not in exacerbation. Continue home inhalers (6) CAD (coronary artery disease) Current Visit: No Status: Chronic Assessment and Plan: Continue medications Without any signs of acute coronary events. (7) Atrial fibrillation Current Visit: No Status: Chronic Assessment and Plan: Currently rate controlled. Continue Coumadin, pharmacy to dose, INR today 1.8. (8) Thyroid nodule Current Visit: Yes Status: Acute Assessment and Plan: Incidentally found on CT, patient on methimazole, continue. Will need outpatient follow-up DVT Prophylaxis: On Coumadin. - Time Spent with Patient Total time spent is greater than 50% in coordination of care (as documented) at patient's floor/unit and/or counseling patient: Greater than 35 minutes Plan of Care Discussed with: patient Internal Medicine: Result - Labs CBC & Chem 7: 03/14/19 04:05 03/14/19 04:05 Labs: Short CBC 03/14/19 Range/Units 04:05 WBC 8.9 (4.3-11.1) K/mcL Hgb 15.0 (12.9-16.9) g/dL Hct 46.4 (37.5-50.1) % Plt Count 241 (140-400) K/mcL Neutrophils # 4.9 (1.6-8.9) K/mcL BMP 03/14/19 04:05 Sodium 141 Potassium 4.3 Chloride 100 Carbon Dioxide 33 H BUN 15 Creatinine 1.08 Glucose 105 Calcium 9.3 - ABG Interpretation ABG results: PT/INR, D-dimer PT 20.3 Seconds (9.4-12.1) H 03/14/19 04:05 Consult Discharge Plan - Plan Referrals: Luis Garcia MD [Primary Care Provider] - (Appointment has been requested. Office will call with date and time of appointment. ) (2) HTN (hypertension) Qualifiers: Hypertension type: essential hypertension Qualified Code(s): I10 - Essential (primary) hypertension (3) Diabetes mellitus Qualifiers: Diabetes mellitus type: type 2 Diabetes mellitus penitentiary insulin use: without penitentiary use Diabetes mellitus complication status: with circulatory complication Diabetes mellitus complication detail: with other circulatory complications Qualified Code(s): E11.59 - Type 2 diabetes mellitus with other circulatory complications (4) Depression Qualifiers: Depression Type: unspecified Qualified Code(s): F32.9 - Major depressive disorder, single episode, unspecified (5) COPD (chronic obstructive pulmonary disease) Qualifiers: COPD type: unspecified COPD Qualified Code(s): J44.9 - Chronic obstructive pulmonary disease, unspecified (6) CAD (coronary artery disease) Qualifiers: Coronary Disease-Associated Artery/Lesion type: [place] artery [place] vs. transplanted heart: [place] heart Associated angina: without angina Qualified C ode(s): I25.10 - Atherosclerotic heart disease of [place] coronary artery without angina pectoris (7) Atrial fibrillation Qualifiers: Atrial fibrillation type: paroxysmal Qualified Code(s): I48.0 - Paroxysmal atrial fibrillation
[2019-03-14] MEDS ORDERED: *HR* Warfarin 3 MG TABLET PO ONE (18:00)
[2019-03-14] MEDS: traZODone 50 MG TABLET PO PRN (22:02)
[2019-03-15] MEDS: Acetaminophen 325 MG TABLET PO SCH ×4 (05:00→22:10)
[2019-03-15] MEDS: Budesonide/Formoterol 80/4.5 MDI IH SCH ×2 (07:42→22:01)
[2019-03-15 07:54] LABS: Prothrombin Time 22.7 Seconds (9.4-12.1)
[2019-03-15] MEDS: Insulin LISPRO 300 UNITS/3 ML VIAL SQ SCH ×3 (08:18→17:12)
[2019-03-15] MEDS: Furosemide 20 MG TABLET PO SCH (08:24)
[2019-03-15] MEDS: Gabapentin 100 MG CAPSULE PO SCH ×3 (08:24→22:10)
[2019-03-15] MEDS: Aspirin 81 MG TAB.CHEW PO SCH (08:25)
[2019-03-15] MEDS: methIMAzole 5 MG TABLET PO SCH (08:25)
[2019-03-15] MEDS: Spironolactone 25 MG TABLET PO SCH (08:25)
--- NOTE | 2019-03-15 13:09 | Internal Med Progress Note ---
Hospitalist Progress Note - Encounter Date of Encounter: 03/15/19 Time of Encounter: 13:07 - Subjective Interval History: Mr. Fierro is a 68 year old male last medical history of COPD, diabetes, neuropathy, coronary artery disease status post CABG in 2016, atrial fibrillation, hypertension, hyperlipidemia, PAD,who continues to smoke, came in with complain of severe back pain and inability to move due to severe back pain. Patient bought a puppy and has been more active over the past 3 days. He is more or less wheelchair bound due to long-standing back pain and hip pain. He is on Coumadin for A. fib. He was evaluated in ER with the dissection studies which were unremarkable. There is radiologic evidence of multilevel lumbar spondylosis, advanced degenerative changes and hip arthritis especially in the left. He admitted for intractable back pain. Pt seen and examined in the room. Back pain has improved with pain medications. PT/OT recommended SNF, awaiting acceptance. - Exam Vitals: Temp Pulse Resp BP Pulse Ox 97.4 F L 57 16 121/72 94 03/15/19 10:48 03/15/19 10:48 03/15/19 10:48 03/15/19 10:48 03/15/19 10:48 Exam: Constitutional: Vitals as noted. Conversant. No Apparent Distress. Morbidly obese Eyes : Sclera white, conjunctiva clear, no lid lag, PEARLA. ENT : Grossly normal hearing. Oropharyngeal exam unremarkable. Moist mucus membranes. Respiratory : No accessory muscle use. occasional rhonchi Cardiovascular : RRR, +S1, +S2. no murmur, gallop, rubs. No chest wall tenderness GI/Abdominal : Soft, Non-tender, Non-distended, normal bowel sounds, no peritoneal signs. no orgenomegaly or mass appreciated. no hernia. Musculoskeletal: no deformity noted. 1+ edema, pulses palpable and symmetrical in UE/LE. no calf tenderness. Neurological: AO X3, CN II-XII grossly intact, grossly normal motor and sensory exam. Skin: chronic dermatitis changes b/l LE without signs of infection Pych: Good insight and judgement. Intact memory. AOx3. - Assessment and Plan (1) Intractable low back pain Current Visit: Yes Status: Acute Assessment and Plan: Patient has advanced lumbar and hip degenerative changes. No signs of spinal cord compression. Patient is usually wheelchair bound most of the time. Previously had discussion about hip surgery but could not afford it. Continue pain medications. PT/OT evaluation recommended SNF, awaiting acceptance. (2) HTN (hypertension) Current Visit: No Status: Chronic Assessment and Plan: BP well controlled with current home medications. (3) Diabetes mellitus Current Visit: No Status: Chronic Assessment and Plan: Sliding scale insulin and Accu-Cheks. Blood glucose well controlled currently. (4) Depression Current Visit: No Status: Chronic Assessment and Plan: Continue home antidepressants. Mood stable, denies suicidal ideation. (5) COPD (chronic obstructive pulmonary disease) Current Visit: No Status: Chronic Assessment and Plan: He continues to smoke. Counseled on cessation Not in exacerbation. Continue home inhalers (6) CAD (coronary artery disease) Current Visit: No Status: Chronic Assessment and Plan: Continue medications Without any signs of acute coronary events. (7) Atrial fibrillation Current Visit: No Status: Chronic Assessment and Plan: Currently rate controlled. Continue Coumadin, pharmacy to dose, INR today 2.0. (8) Thyroid nodule Current Visit: Yes Status: Acute Assessment and Plan: Incidentally found on CT, patient on methimazole, continue. Will need outpatient follow-up DVT Prophylaxis: On Coumadin. - Time Spent with Patient Total time spent is greater than 50% in coordination of care (as documented) at patient's floor/unit and/or counseling patient: Greater than 35 minutes Plan of Care Discussed with: patient Internal Medicine: Result - Labs CBC & Chem 7: 03/14/19 04:05 03/14/19 04:05 - ABG Interpretation ABG results: PT/INR, D-dimer PT 22.7 Seconds (9.4-12.1) H 03/15/19 06:46 Consult Discharge Plan - Plan Referrals: Luis Garcia MD [Primary Care Provider] - (Appointment has been requested. Office will call with date and time of appointment. ) (2) HTN (hypertension) Qualifiers: Hypertension type: essential hypertension Qualified Code(s): I10 - Essential (primary) hypertension (3) Diabetes mellitus Qualifiers: Diabetes mellitus type: type 2 Diabetes mellitus halfway insulin use: without adjunct faculty for medical terminology use Diabetes mellitus complication status: with circulatory complication Diabetes mellitus complication detail: with other circulatory complications Qualified Code(s): E11.59 - Type 2 diabetes mellitus with other circulatory complications (4) Depression Qualifiers: Depression Type: unspecified Qualified Code(s): F32.9 - Major depressive disorder, single episode, unspecified (5) COPD (chronic obstructive pulmonary disease) Qualifiers: COPD type: unspecified COPD Qualified Code(s): J44.9 - Chronic obstructive pulmonary disease, unspecified (6) CAD (coronary artery disease) Qualifiers: Coronary Disease-Associated Artery/Lesion type: [place] artery [place] vs. transplanted heart: [place] heart Associated angina: without angina Qualified Code(s): I25.10 - Atherosclerotic heart disease of [place] coronary artery without angina pectoris (7) Atrial fibrillation Qualifiers: Atrial fibrillation type: paroxysmal Qualified Code(s): I48.0 - Paroxysmal atrial fibrillation
[2019-03-15] MEDS ORDERED: *HR* Warfarin 3 MG TABLET PO ONE (18:00)
[2019-03-15] MEDS: clonazePAM 1 MG TABLET PO PRN (22:10)
[2019-03-15] MEDS: traZODone 50 MG TABLET PO PRN (22:10)
[2019-03-16] MEDS: Acetaminophen 325 MG TABLET PO SCH ×4 (05:12→23:32)
[2019-03-16 06:33] LABS: Hematocrit 44.5 % (37.5-50.1); Hemoglobin 14.5 g/dL (12.9-16.9); Mean Corpuscular HGB Conc 32.6 g/dL (31.6-35.5); Mean Corpuscular Hemoglobin 29.7 pg (28.0-33.3); Mean Corpuscular Volume 91.2 fL (83.0-100.0); Mean Platelet Volume 9.1 fL (9.4-12.4); Platelet Count 230 K/mcL (140-400); Red Blood Count 4.88 M/mcL (4.19-5.50); Red Cell Distribution Width 14.7 % (11.5-14.5)
[2019-03-16 06:50] LABS: INR 1.9; Prothrombin Time 21.4 Seconds (9.4-12.1)
[2019-03-16 06:57] LABS: BUN/Creatinine Ratio 21 (6-26); Blood Urea Nitrogen 19 mg/dL (8-23); Calcium 9.1 mg/dL (8.6-10.3); Carbon Dioxide 29 mEq/L (23-29); Chloride 102 mEq/L (98-107); Glucose 108 mg/dL (70-105); Osmolality,Calculated 291 (280-300); Potassium 4.3 mEq/L (3.5-5.1); Sodium 139 mEq/L (136-145); eGFR For African Americans > 60 (> 60); eGFR For Non-African Americans > 60 (> 60)
[2019-03-16] MEDS: Insulin LISPRO 300 UNITS/3 ML VIAL SQ SCH ×3 (08:06→17:52)
[2019-03-16] MEDS: Spironolactone 25 MG TABLET PO SCH (08:51)
[2019-03-16] MEDS: methIMAzole 5 MG TABLET PO SCH (08:51)
[2019-03-16] MEDS: Gabapentin 100 MG CAPSULE PO SCH ×3 (08:51→22:24)
[2019-03-16] MEDS: Furosemide 20 MG TABLET PO SCH (08:51)
[2019-03-16] MEDS: Aspirin 81 MG TAB.CHEW PO SCH (08:51)
[2019-03-16] MEDS: Budesonide/Formoterol 80/4.5 MDI IH SCH ×2 (11:09→22:29)
--- NOTE | 2019-03-16 15:24 | Internal Med Progress Note ---
Hospitalist Progress Note - Encounter Date of Encounter: 03/16/19 Time of Encounter: 11:00 - Subjective Interval History: Patient was seen and examined at bedside currently patient is sitting up in a chair eating breakfast denies any pain or discomfort. Discussed her plan with the patient which includes inpatient rehabilitation awaiting insurance author ization. Patient verbalizes understanding of treatment plan. - Exam Vitals: Temp Pulse Resp BP Pulse Ox 97.6 F 82 14 103/67 93 03/16/19 10:26 03/16/19 10:03/16/19 11:10 03/16/19 10:03/16/19 11:10 Exam: Constitutional: Vitals as noted. Conversant. No Apparent Distress. Morbidly obese Eyes : Sclera white, conjunctiva clear, no lid lag, PEARLA. ENT : Grossly normal hearing. Oropharyngeal exam unremarkable. Moist mucus membranes. Respiratory : No accessory muscle use. occasional rhonchi Cardiovascular : RRR, +S1, +S2. no murmur, gallop, rubs. No chest wall tenderness GI/Abdominal : Soft, Non-tender, Non-distended, normal bowel sounds, no peritoneal signs. no orgenomegaly or mass appreciated. no hernia. Musculoskeletal: no deformity noted. 1+ edema, pulses palpable and symmetrical in UE/LE. no calf tenderness. Neurological: AO X3, CN II-XII grossly intact, grossly normal motor and sensory exam. Skin: chronic dermatitis changes b/l LE without signs of infection Pych: Good insight and judgement. Intact memory. AOx3. - Assessment and Plan (1) HTN (hypertension) Current Visit: No Status: Chronic Assessment and Plan: BP well controlled with current home medications. (2) Diabetes mellitus Current Visit: No Status: Chronic Assessment and Plan: Sliding scale insulin and Accu-Cheks. Blood glucose well controlled currently. (3) Depression Current Visit: No Status: Chronic Assessment and Plan: Continue home antidepressants. Mood stable, denies suicidal ideation. (4) COPD (chronic obstructive pulmonary disease) Current Visit: No Status: Chronic Assessment and Plan: He continues to smoke. Counseled on cessation Not in exacerbation. Continue home inhalers (5) CAD (coronary artery disease) Current Visit: No Status: Chronic Assessment and Plan: Continue medications Without any signs of acute coronary events.-Denies any chest pain or discomfort (6) Atrial fibrillation Current Visit: No Status: Chronic Assessment and Plan: Currently rate controlled. Continue Coumadin, pharmacy to dose, INR today 1.9 (7) Thyroid nodule Current Visit: Yes Status: Acute Assessment and Plan: Incidentally found on CT, patient on methimazole, continue. Will need outpatient follow-up (8) Intractable low back pain Current Visit: Yes Status: Acute Assessment and Plan: Patient has advanced lumbar and hip degenerative changes. No signs of spinal cord compression. Patient is usually wheelchair bound most of the time. Previously had discussion about hip surgery but could not afford it. Continue pain medications. PT/OT evaluation recommended SNF, insurance authorization - Time Spent with Patient Total time spent is greater than 50% in coordination of care (as documented) at patient's floor/unit and/or counseling patient: Internal Medicine: Result - Labs CBC & Chem 7: 03/16/19 05:34 03/16/19 05:34 Labs: Short CBC 03/16/19 Range/Units 05:34 WBC 8.0 (4.3-11.1) K/mcL Hgb 14.5 (12.9-16.9) g/dL Hct 44.5 (37.5-50.1) % Plt Count 230 (140-400) K/mcL BMP 03/16/19 05:34 Sodium 139 Potassium 4.3 Chloride 102 Carbon Dioxide 29 BUN 19 Creatinine 0.91 Glucose 108 H Calcium 9.1 - ABG Interpretation ABG results: PT/INR, D-dimer PT 21.4 Seconds (9.4-12.1) H 03/16/19 05:34 Consult Discharge Plan - Plan Referrals: Luis Garcia MD [Primary Care Provider] - (Appointment has been requested. Office will call with date and time of appointment. ) (1) HTN (hypertension) Qualifiers: Hypertension type: essential hypertension Qualified Code(s): I10 - Essential (primary) hypertension (2) Diabetes mellitus Qualifiers: Diabetes mellitus type: type 2 Diabetes mellitus long term acute care registered nurse insulin use: without skilled nursing use Diabetes mellitus complication status: with circulatory complication Diabetes mellitus complication detail: with other circulatory complications Qualified Code(s): E11.59 - Type 2 diabetes mellitus with other circulatory complications (3) Depression Qualifiers: Depression Type: unspecified Qualified Code(s): F32.9 - Major depressive disorder, single episode, unspecified (4) COPD (chronic obstructive pulmonary disease) Qualifiers: COPD type: unspecified COPD Qualified Code(s): J44.9 - Chronic obstructive pulmonary disease, unspecified (5) CAD (coronary artery disease) Qualifiers: Coronary Disease-Associated Artery/Lesion type: [place] artery [place] vs. transplanted heart: [place] heart Associated angina: without angina Qualified Code(s): I25.10 - Atherosclerotic heart disease of [place] coronary artery without angina pectoris (6) Atrial fibrillation Qualifiers: Atrial fibrillation type: paroxysmal Qualified Code(s): I48.0 - Paroxysmal a trial fibrillation
[2019-03-16] MEDS ORDERED: *HR* Warfarin 3 MG TABLET PO ONE (18:00)
[2019-03-16] MEDS: traZODone 50 MG TABLET PO PRN (23:31)
[2019-03-16] MEDS: clonazePAM 1 MG TABLET PO PRN (23:32)
[2019-03-17] MEDS: Acetaminophen 325 MG TABLET PO SCH (05:02)
[2019-03-17 06:33] LABS: INR 2.1; Prothrombin Time 24.1 Seconds (9.4-12.1)
[2019-03-17 07:17] VITALS: BP 135/81
[2019-03-17] MEDS: Budesonide/Formoterol 80/4.5 MDI IH SCH (07:23)
[2019-03-17] MEDS: Insulin LISPRO 300 UNITS/3 ML VIAL SQ SCH (07:28)
--- NOTE | 2019-03-17 07:57 | Discharge Summary ---
- NOTES TO OUTPATIENT PROVIDER Notes to Outpatient Provider: Incidental finding on CT thyroid nodule will charisse folow up as outpatient. Rehab per PT/OT recomendations Orders not resulted at time of discharge: Pending orders 03/18/19 04:00 Prothrombin Time INR [COAG] AM 0400 Date of Encounter: 03/17/19 Time of Encounter: 07:56 - Discharge Diagnosis (1) HTN (hypertension) Priority: Secondary Status: Chronic Qualifiers: Hypertension type: essential hypertension Qualified Code(s): I10 - Essential (primary) hypertension (2) Diabetes mellitus Priority: Secondary Status: Chronic Qualifiers: Diabetes mellitus type: type 2 Diabetes mellitus termite control representative insulin use: without termite control representative use Diabetes mellitus complication status: with circulatory complication Diabetes mellitus complication detail: with other circulatory complications Qualified Code(s): E11.59 - Type 2 diabetes mellitus with other circulatory complications (3) Depression Priority: Secondary Status: Chronic Qualifiers: Depression Type: unspecified Qualified Code(s): F32.9 - Major depressive disorder, single episode, unspecified (4) COPD (chronic obstructive pulmonary disease) Priority: Secondary Status: Chronic Qualifiers: COPD type: unspecified COPD Qualified Code(s): J44.9 - Chronic obstructive pulmonary disease, unspecified (5) CAD (coronary artery disease) Priority: Secondary Status: Chronic Qualifiers: Coronary Disease-Associated Artery/Lesion type: [place] artery [place] vs. transplanted heart: [place] heart Associated angina: without angina Qualified Code(s): I25.10 - Atherosclerotic heart disease of [place] coronary artery without angina pectoris (6) Atrial fibrillation Priority: Secondary Status: Chronic Qualifiers: Atrial fibrillation type: paroxysmal Qualified Code(s): I48.0 - Paroxysmal atrial fibrillation (7) Thyroid nodule Priority: Secondary Status: Acute (8) Intractable low back pain Priority: Primary Status: Acute Hospital course: Mr. Fierro is a 68 year old male medical history of COPD diabetes neuropathy coronary artery disease status post CABG in 2016 atrial fibrillation hypertension hyperlipidemia PAD who continues to smoke presented to [facility] with complaints of severe back pain and inability to move due to severe back pain. Patient got a puppy and has been more active than usual over the past few days prior to presentation. Normally patient is wheelchair bound due to long- standing back pain and hip pain. He presented to [facility] ED with complaints of intractable back pain. There is radiological evidence of multilevel lumbar spondylosis advanced degenerative changes and hip arthritis especially in the left. CT dissection with no acute vascular injury or aortic dissection the finding of thyroid nodule patient will need follow-up as an outpatient. Patient's pain controlled and evaluated by PT OT recommending inpatient rehabilitation which patient has agreed. He has been accepted at [facility] and will be discharged. Currently he is hemodynamically stable and pain is controlled. - Time Spent with Patient Total time spent providing and/or coordinating discharge services: - Discharge Medications Prescriptions: New Oxycodone HCl/Acetaminophen [Endocet 5-325 Tablet] 1 each PO TID 3 Days #9 tablet Cyclobenzaprine [Flexeril] 10 mg PO BID tablet Sennosides/Docusate Sodium [Senna Plus] 2 each PO BID PRN tablet PRN Reason: Constipation Quetiapine Fumarate [Seroquel] 100 mg PO HS tablet HYDROcodone/Acet 5/325 mg [Max 5-325 mg] 1 tab PO Q6H PRN 1 Days #4 tab PRN Reason: Pain Continued Escitalopram [Lexapro] 20 mg PO HS clonazePAM [Klonopin] 1 mg PO BID PRN PRN Reason: Anxiety Aspirin 81 mg PO DAILY #30 tab.chew Nitroglycerin 0.4 mg SL Q5MIN PRN #25 tab.subl PRN Reason: Chest Pain Acetaminophen [Tylenol] 650 mg PO Q6HR PRN PRN Reason: pain/fever Spironolactone [Aldactone] 25 mg PO DAILY Atorvastatin [Lipitor] 40 mg PO HS Metoprolol [Lopressor] 25 mg PO BID #60 tablet Furosemide [Lasix] 20 mg PO DAILY Lisinopril 2.5 mg PO DAILY Budesonide/Formoterol 80/4.5 [Symbicort 80/4.5] 2 puff IH BID Gabapentin [Neurontin] 300 mg PO TID methIMAzole [Methimazole] 10 mg PO DAILY Quetiapine Fumarate [Seroquel] 100 mg PO HS Changed Warfarin [Coumadin] 9 mg PO DAILY #2 Warfarin [Coumadin] 6 mg PO DAILY #0 Discontinued Trazodone HCl 150 mg PO HS PRN PRN Reason: Sleep Home Medications: Escitalopram [Lexapro] 20 mg PO HS 05/20/16 [History] clonazePAM [Klonopin] 1 mg PO BID PRN 05/20/16 [History] Aspirin 81 mg PO DAILY #30 tab.chew 05/22/16 [Rx] Nitroglycerin 0.4 mg SL Q5MIN PRN #25 tab.subl 05/22/16 [Rx] Acetaminophen [Tylenol] 650 mg PO Q6HR PRN 09/09/16 [History] Atorvastatin [Lipitor] 40 mg PO HS 02/09/17 [History] Spironolactone [Aldactone] 25 mg PO DAILY 02/09/17 [History] Metoprolol [Lopressor] 25 mg PO BID #60 tablet 02/11/17 [Rx] Furosemide [Lasix] 20 mg PO DAILY 03/11/19 [History] Lisinopril 2.5 mg PO DAILY 03/11/19 [History] Oxycodone HCl/Acetaminophen [Endocet 5-325 Tablet] 1 each PO TID 3 Days #9 tablet 03/11/19 [Rx] Budesonide/Formoterol 80/4.5 [Symbicort 80/4.5] 2 puff IH BID 03/12/19 [History] Gabapentin [Neurontin] 300 mg PO TID 03/12/19 [History] Quetiapine Fumarate [Seroquel] 100 mg PO HS 03/12/19 [History] methIMAzole [Methimazole] 10 mg PO DAILY 03/12/19 [History] Cyclobenzaprine [Flexeril] 10 mg PO BID tablet 03/17/19 [Rx] HYDROcodone/Acet 5/325 mg [Max 5-325 mg] 1 tab PO Q6H PRN 1 Days #4 tab 03/17/19 [Rx] Quetiapine Fumarate [Seroquel] 100 mg PO HS tablet 03/17/19 [Rx] Sennosides/Docusate Sodium [Senna Plus] 2 each PO BID PRN tablet 03/17/19 [Rx] Warfarin [Coumadin] 6 mg PO DAILY #0 03/17/19 [Rx] Warfarin [Coumadin] 9 mg PO DAILY #2 03/17/19 [Rx] Allergies/Adverse Reactions: Allergy/AdvReac Type Severity Reaction Status Date / Time No Known Allergies Allergy Verified 09/09/16 09:34 Date of admission: 03/12/19 00:13 Primary care physician: Luis Garcia MD Consults: 03/12/19 08:05 Consult to Occupational Therapy [CONS] Routine Comment: Evaluate, develop and implement POC Reason for Consult: improve mobility, discharge planning Does patient have active BEDREST order?: No Is patient medically & hemodynamically stable?: Yes Consult to Physical Therapy [CONS] Routine Comment: Evaluate, develop and implement POC Reason for Consult: improve mobility, discharge plannin Does patient have active BEDREST order?: No Is patient medically & hemodynamically stable?: Yes 03/14/19 13:41 Consult to Picker Box Operator [CONS] Routine Reason for SW Consult: PT/OT RECOMMEND SNF Discharging clinician: Anisa Barriga Anticipated date of discharge: 03/17/19 - Constitutional Vitals: Temp Pulse Resp BP Pulse Ox 97.4 F L 72 16 135/81 92 03/17/19 07:07 03/17/19 07:07 03/17/19 07:07 03/17/19 07:07 03/17/19 07:07 Exam: Constitutional: Vitals as noted. Conversant. No Apparent Distress. Morbidly obese Eyes : Sclera white, conjunctiva clear, no lid lag, PEARLA. ENT : Grossly normal hearing. Oropharyngeal exam unremarkable. Moist mucus membranes. Respiratory : No accessory muscle use. occasional rhonchi Cardiovascular : RRR, +S1, +S2. no murmur, gallop, rubs. No chest wall tenderness GI/Abdominal : Soft, Non-tender, Non-distended, normal bowel sounds, no peritoneal signs. no orgenomegaly or mass appreciated. no hernia. Musculoskeletal: no deformity noted. 1+ edema, pulses palpable and symmetrical in UE/LE. no calf tenderness. Neurological: AO X3, CN II-XII grossly intact, grossly normal motor and sensory exam. Skin: chronic dermatitis changes b/l LE without signs of infection Pych: Good insight and judgement. Intact memory. AOx3. - Patient Status Disposition: Transfer SNF Condition: Good Functional capacity at discharge: wheelchair bound Overall status at discharge: patient is back to baseline - Discharge Instructions Follow Up With: Luis Garcia MD [Primary Care Provider] - (Appointment has been requested. Office will call with date and time of appointment. ) - Diet and Activity Activity: as per physical therapy Diet: low fat, low cholesterol
--- NOTE | 2019-03-17 08:51 | Physician Discharge Referral ---
ExtendedCare Referral Info Transfer To: [facility] Provider in Charge: Anisa Barriga Provider in Charge after Transfer: PCP Institutional Level of Care: Skilled - Diagnosis (1) HTN (hypertension) Priority: Secondary Status: Chronic (2) Diabetes mellitus Priority: Secondary Status: Chronic (3) Depression Priority: Secondary Status: Chronic (4) COPD (chronic obstructive pulmonary disease) Priority: Secondary Status: Chronic (5) CAD (coronary artery disease) Priority: Secondary Status: Chronic (6) Atrial fibrillation Priority: Secondary Status: Chronic (7) Thyroid nodule Priority: Secondary Status: Acute (8) Intractable low back pain Priority: Primary Status: Acute Prognosis: Fair Aware of Diagnosis: Patient Aware of Prognosis: Patient - Transfer Medications Prescriptions: HYDROcodone/Acet 5/325 mg [[place] 5-325 mg] 1 tab PO Q6H PRN 1 Days #4 tab PRN Reason: Pain Home Medications: Escitalopram [Lexapro] 20 mg PO HS 05/20/16 [History] clonazePAM [Klonopin] 1 mg PO BID PRN 05/20/16 [History] Aspirin 81 mg PO DAILY #30 tab.chew 05/22/16 [Rx] Nitroglycerin 0.4 mg SL Q5MIN PRN #25 tab.subl 05/22/16 [Rx] Acetaminophen [Tylenol] 650 mg PO Q6HR PRN 09/09/16 [History] Atorvastatin [Lipitor] 40 mg PO HS 02/09/17 [History] Spironolactone [Aldactone] 25 mg PO DAILY 02/09/17 [History] Metoprolol [Lopressor] 25 mg PO BID #60 tablet 02/11/17 [Rx] Furosemide [Lasix] 20 mg PO DAILY 03/11/19 [History] Lisinopril 2.5 mg PO DAILY 03/11/19 [History] Oxycodone HCl/Acetaminophen [Endocet 5-325 Tablet] 1 each PO TID 3 Days #9 tablet 03/11/19 [Rx] Budesonide/Formoterol 80/4.5 [Symbicort 80/4.5] 2 puff IH BID 03/12/19 [History] Gabapentin [Neurontin] 300 mg PO TID 03/12/19 [History] Quetiapine Fumarate [Seroquel] 100 mg PO HS 03/12/19 [History] methIMAzole [Methimazole] 10 mg PO DAILY 03/12/19 [History] Cyclobenzaprine [Flexeril] 10 mg PO BID tablet 03/17/19 [Rx] HYDROcodone/Acet 5/325 mg [[place] 5-325 mg] 1 tab PO Q6H PRN 1 Days #4 tab 03/17/19 [Rx] Quetiapine Fumarate [Seroquel] 100 mg PO HS tablet 03/17/19 [Rx] Sennosides/Docusate Sodium [Senna Plus] 2 each PO BID PRN tablet 03/17/19 [Rx] Warfarin [Coumadin] 6 mg PO DAILY #0 03/17/19 [Rx] Warfarin [Coumadin] 9 mg PO DAILY #2 03/17/19 [Rx] Allergies/Adverse Reactions: Allergy/AdvReac Type Severity Reaction Status Date / Time No Known Allergies Allergy Verified 09/09/16 09:34 - Respiratory Orders Smoking Cessation: Smoking cessation has been advised. For more information, call the [employer] Tobacco Quit Line at 5-657-KOLX-NOW. - Lab Orders Lab Orders: Other (include drug levels w/frequency) (PT/INR-03/21) - Advance Directives Living Will: No Power of Java Application Engineer for Health Care: No Code Status: Full Code - Mobility Orders Ambulate - Rehabiliation Orders Rehab Orders: Evaluation for Physical Therapy, Evaluation for Occupational Therapy - Diet Orders Cardiac CERTIFICATION: I certify that the transfer of the above named patient to an Extended Care Facility is necessary for the continuing treatment of the diagnosis listed. The above information is true and accurate reflection of patient's current condition. Confidential - Redisclosure prohibited without a patient's written consent.
[2019-03-17] MEDS: Gabapentin 100 MG CAPSULE PO SCH (09:47)
[2019-03-17] MEDS: Furosemide 20 MG TABLET PO SCH (09:48)
[2019-03-17] MEDS: methIMAzole 5 MG TABLET PO SCH (09:48)
[2019-03-17] MEDS: Spironolactone 25 MG TABLET PO SCH (09:48)
[2019-03-17] MEDS: Aspirin 81 MG TAB.CHEW PO SCH (09:48)
== END 2019-03-17 11:13 ==
LOC: EMEROOARM 15:24 → 3BNU 15:24 → SUATTDRO 03-12 00:13 → 3BNU 03-12 00:36
PROVIDERS: ADMIT Pediatrics; ATTEND Internal Medicine

== ENCOUNTER 2022-02-25 22:24 | Observation (INO) ==
[2022-02-25 23:06] LABS: Basophils # 0.1 K/mcL (0.0-0.2); Basophils % 0.8 %; Eosinophils # 0.4 K/mcL (0.0-0.6); Eosinophils % 3.4 %; Hematocrit 45.8 % (37.5-50.1); Hemoglobin 15.1 g/dL (12.9-16.9); Immature Granulocytes % 0.9 % (0-4); Lymphocytes # 2.1 K/mcL (0.6-4.6); Lymphocytes % 18.2 %; Mean Corpuscular Hemoglobin 29.2 pg (28.0-33.3); Mean Corpuscular Volume 88.4 fL (83.0-100.0); Mean Platelet Volume 8.8 fL (9.4-12.4); Monocytes # 0.8 K/mcL (0.0-1.3); Monocytes % 6.4 %; Neutrophils # 8.3 K/mcL (1.6-8.9); Nucleated Red Blood Cells 0.2 /100 WBC (0); Platelet Count 262 K/mcL (140-400); Red Blood Count 5.18 M/mcL (4.19-5.50); Red Cell Distribution Width 15.2 % (11.5-14.5); Segmented Neutrophils % 70.3 %; White Blood Count 11.7 K/mcL (4.3-11.1)
[2022-02-25 23:28] LABS: Alanine Aminotransferase 11 Units/L (7-52); Albumin 3.8 g/dL (3.5-5.7); Albumin/Globulin Ratio 1.2 (1.1-2.2); Alkaline Phosphatase 74 Units/L (34-104); Aspartate Amino Transferase 13 Units/L (13-39); BUN/Creatinine Ratio 15 (6-26); Bilirubin,Total 0.5 mg/dL (0.3-1.0); Blood Urea Nitrogen 15 mg/dL (8-23); Calcium 9.6 mg/dL (8.6-10.3); Carbon Dioxide 31 mEq/L (23-29); Chloride 98 mEq/L (98-107); Globulin 3.2 g/dL (2.4-3.5); Glucose 94 mg/dL (70-105); Osmolality,Calculated 283 (280-300); Potassium 4.2 mEq/L (3.5-5.1); Sodium 136 mEq/L (136-145); eGFR For African Americans > 60 (> 60); eGFR For Non-African Americans > 60 (> 60)
[2022-02-25 23:55] LABS: Influenza A PCR Negative (Negative); Influenza B PCR Negative (Negative); Resp. Syncytial Virus PCR Negative (Negative)
[2022-02-26 00:03] LABS: SARS-CoV-2 by PCR (In House) Negative (Negative)
[2022-02-26 01:23] LABS: Bilirubin,Urine Negative (Negative); Blood,Urine Trace (Negative); Clarity,Urine Clear (Clear); Color,Urine Yellow (Yellow); Glucose,Urine (UA) Normal (Normal); Hyaline Casts,Urine Few per lpf (None Seen); Ketones,Urine Negative (Negative); Leukocyte Esterase,Urine Negative (Negative); Mucus,Urine Few per lpf (None-Few); Nitrite,Urine Negative (Negative); Protein,Urine Trace mg/dL (Neg-Trace); Specific Gravity,Urine 1.019 (1.010-1.025); WBC,Urine 0-3 per hpf (0-3)
[2022-02-26] MEDS ORDERED: Ipratropium/Albuterol Neb 3 ML IH ONE (01:54)
[2022-02-26] MEDS ORDERED: methylPREDNISolone 125 MG/2 ML VIAL IVP ONE (01:55)
[2022-02-26 02:55] LABS: VBG HCO3 32 mEq/L (21-27); VBG PCO2 69 mmHg (41-51); VBG PH 7.27 pH Units (7.32-7.42); VBG PO2 40 mmHg (25-50)
[2022-02-26 03:02] LABS: INR 2.5; Prothrombin Time 27.4 Seconds (9.4-12.1)
[2022-02-26 03:03] LABS: D-Dimer < 215 ng/mLFEU (0-500)
[2022-02-26] MEDS ORDERED: Acetaminophen 325 MG TABLET PO PRN (04:50)
[2022-02-26] MEDS ORDERED: Ondansetron 4 MG/2 ML VIAL IVP PRN (04:50)
[2022-02-26] MEDS ORDERED: Naloxone 0.4 MG/ML INJ IVP PRN (04:50)
[2022-02-26] MEDS ORDERED: MethylPREDNISolone 40 MG/ML VIAL IVP SCH (06:00)
[2022-02-26] MEDS ORDERED: D5% in Water 1,000 ML IVC PRN (06:30)
[2022-02-26] MEDS ORDERED: *HR* Dextrose 50 % in Water (Syg) 50 ML SYRINGE IVP PRN (06:30)
[2022-02-26] MEDS ORDERED: Dextrose Gel 15 GM/37.5 ML TUBE PO PRN ×2 (06:30)
[2022-02-26] MEDS ORDERED: Azithromycin 500 MG in 0.9 % Sodium Chloride 250 ML IVPB SCH (07:00)
[2022-02-26] MEDS: Ipratropium/Albuterol Neb 3 ML IH SCH ×5 (07:58→23:30)
[2022-02-26 08:01] LABS: ABG Base Excess 0 mEq/L (-2 to 3); ABG HCO3 27 mEq/L (21-27); ABG Oxygen Saturation 94 % (95-98); ABG PCO2 47 mmHg (35-45); ABG PH 7.36 pH Units (7.32-7.45); ABG PO2 76 mmHg (85-104); ABG TCO2 28 mEq/L (20-26)
[2022-02-26] MEDS: Insulin LISPRO 300 UNITS/3 ML VIAL SUBQ SCH ×3 (08:44→15:53)
[2022-02-26 12:21] LABS: Troponin I < 0.03 ng/mL (< 0.04)
[2022-02-26] MEDS: polyethylene glycoL 3350 17 GM POWD.PACK PO SCH (15:49)
[2022-02-26] MEDS: Sennosides/Docusate Sodium TABLET PO SCH (15:49)
[2022-02-26] MEDS: Furosemide 40 MG TABLET PO SCH (15:49)
[2022-02-26] MEDS: methIMAzole 5 MG TABLET PO SCH (15:49)
[2022-02-26] MEDS ORDERED: Warfarin perPT PO PRN (18:00)
[2022-02-26] MEDS ORDERED: *HR* Warfarin 5 MG TABLET PO ONE (18:00)
[2022-02-26] MEDS: QUEtiapine Fumarate 100 MG TABLET PO SCH (21:25)
[2022-02-26] MEDS: traZODone 50 MG TABLET PO SCH (21:26)
[2022-02-27] MEDS: Ipratropium/Albuterol Neb 3 ML IH SCH ×6 (03:42→22:43)
[2022-02-27 05:27] LABS: VBG HCO3 29 mEq/L (21-27); VBG PCO2 54 mmHg (41-51); VBG PH 7.34 pH Units (7.32-7.42); VBG PO2 113 mmHg (25-50)
[2022-02-27 05:33] LABS: Hematocrit 42.4 % (37.5-50.1); Hemoglobin 13.9 g/dL (12.9-16.9); Mean Corpuscular HGB Conc 32.8 g/dL (31.6-35.5); Mean Corpuscular Hemoglobin 29.2 pg (28.0-33.3); Mean Corpuscular Volume 89.1 fL (83.0-100.0); Mean Platelet Volume 9.1 fL (9.4-12.4); Platelet Count 257 K/mcL (140-400); Red Blood Count 4.76 M/mcL (4.19-5.50); Red Cell Distribution Width 15.2 % (11.5-14.5); White Blood Count 13.2 K/mcL (4.3-11.1)
[2022-02-27 05:40] LABS: INR 3.4; Prothrombin Time 37.1 Seconds (9.4-12.1)
[2022-02-27 05:54] LABS: BUN/Creatinine Ratio 19 (6-26); Blood Urea Nitrogen 18 mg/dL (8-23); Calcium 9.1 mg/dL (8.6-10.3); Carbon Dioxide 31 mEq/L (23-29); Chloride 100 mEq/L (98-107); Glucose 136 mg/dL (70-105); Osmolality,Calculated 286 (280-300); Potassium 4.1 mEq/L (3.5-5.1); Sodium 136 mEq/L (136-145); eGFR For African Americans > 60 (> 60); eGFR For Non-African Americans > 60 (> 60)
[2022-02-27] MEDS: Insulin LISPRO 300 UNITS/3 ML VIAL SUBQ SCH ×3 (07:10→16:12)
[2022-02-27] MEDS: polyethylene glycoL 3350 17 GM POWD.PACK PO SCH (09:20)
[2022-02-27] MEDS: predniSONE 20 MG TABLET PO SCH (09:21)
[2022-02-27] MEDS: Furosemide 40 MG TABLET PO SCH (09:22)
[2022-02-27] MEDS: lisinopriL 5 MG TABLET PO SCH (09:22)
[2022-02-27] MEDS: methIMAzole 5 MG TABLET PO SCH (09:22)
[2022-02-27] MEDS: Azithromycin 250 MG TABLET PO SCH (09:22)
[2022-02-27] MEDS: Sennosides/Docusate Sodium TABLET PO SCH (09:24)
[2022-02-27] MEDS: Spironolactone 25 MG TABLET PO SCH (09:24)
[2022-02-27] MEDS: Aspirin 81 MG TAB.CHEW PO SCH (09:30)
[2022-02-27] MEDS: QUEtiapine Fumarate 100 MG TABLET PO SCH (21:07)
[2022-02-27] MEDS: traZODone 50 MG TABLET PO SCH (21:08)
[2022-02-28 01:46] LABS: INR 2.3
[2022-02-28] MEDS: Ipratropium/Albuterol Neb 3 ML IH SCH ×4 (04:07→15:21)
[2022-02-28 04:19] LABS: ABG Base Excess 3 mEq/L (-2 to 3); ABG HCO3 30 mEq/L (21-27); ABG Oxygen Saturation 100 % (95-98); ABG PCO2 50 mmHg (35-45); ABG PH 7.38 pH Units (7.32-7.45); ABG PO2 170 mmHg (85-104); ABG TCO2 31 mEq/L (20-26)
[2022-02-28] MEDS: Insulin LISPRO 300 UNITS/3 ML VIAL SUBQ SCH ×3 (07:40→17:54)
[2022-02-28] MEDS: polyethylene glycoL 3350 17 GM POWD.PACK PO SCH (08:24)
[2022-02-28] MEDS: Aspirin 81 MG TAB.CHEW PO SCH (08:24)
[2022-02-28] MEDS: Furosemide 40 MG TABLET PO SCH (08:24)
[2022-02-28] MEDS: methIMAzole 5 MG TABLET PO SCH (08:24)
[2022-02-28] MEDS: Sennosides/Docusate Sodium TABLET PO SCH (08:24)
[2022-02-28] MEDS: Spironolactone 25 MG TABLET PO SCH (08:25)
[2022-02-28] MEDS: lisinopriL 5 MG TABLET PO SCH (08:25)
[2022-02-28] MEDS: predniSONE 20 MG TABLET PO SCH (08:25)
[2022-02-28] MEDS: Azithromycin 250 MG TABLET PO SCH (08:25)
[2022-02-28 10:36] VITALS: BP 108/67; PULSE 58; TEMP 98.3
[2022-02-28 15:52] VITALS: O2SAT 92
[2022-02-28] MEDS ORDERED: *HR* Warfarin 3 MG TABLET PO ONE (18:00)
== END 2022-02-28 19:25 | disposition home health service (06) ==
LOC: 3BNU 22:24 → EMEROOARM 22:24 → 3BNU 02-26 14:00
PROVIDERS: ADMIT General Practice; ATTEND General Practice